=== PATIENT | male | born 1985 | race Caucasian/White ===

== ENCOUNTER 2017-02-06 14:31 | Inpatient (IN) | payer OTHER ==
[~2017-02-06] VITALS: Ht 177.8 cm; Wt 63.5 kg
[~2017-02-06 14:31] MED LIST: BENTYL20 M1 PO; ZOFRAN4 M2 PO
--- NOTE | 2017-02-06 14:41 | NUR ---
PT TO ED C/O PALPITATIONS AND DIZZINESS, EXTREMELY PALE IN TRIAGE, TAKEN IMMEDIATELY TO EKG [facility] FOR ASSESSMENT. PT REPORTING RECENT COLITIS REMISSION, STATING HE HAS BEEN DIZZY AND HAVING PALPITATIONS "FOR FOUR MONTHS, BUT I WAS SO SICK WITH COLITIS I JUST THOUGHT IT WOULD GET BETTER WHEN I GOT BETTER". TAKEN FROM [facility] TO ROOM1.
--- NOTE | 2017-02-06 14:47 | NUR ---
PT PALE, TACHYCARDIC 113. #18 PLACED IN RAC. LAURA PIERCE AT BEDSIDE FOR EVAL.
--- NOTE | 2017-02-06 14:55 | ED GENERAL ADULT ---
History of Present Illness General Chief Complaint: Palpitations Stated Complaint: PALPATATIONS Source: patient, family (sister), old records Exam Limitations: no limitations Vital Signs & Intake/Output Vital Signs & Intake/Output Vital Signs Date Time Temp Pulse Resp B/P Pulse O2 O2 Flow FiO2 Ox Delivery Rate 02/07 2159 98.3 98 20 132/82 97 Room Air 02/07 1602 98.0 97 18 120/82 96 Room Air 02/07 0800 Room Air 02/07 0620 98.9 90 16 126/82 96 Room Air ED Intake and Output 02/08 0000 02/07 1200 Intake Total 700 800 Output Total Balance 700 800 Intake, IV 700 800 Intake, Oral 0 Allergies Coded Allergies: NO KNOWN ALLERGIES (10/18/16) Reconcile Medications Acetaminophen (Tylenol Extra Strength) 500 MG TABLET 2 TAB PO PRN PAIN ( Reported) Multivitamin (Multi-Day Vitamins) 1 EACH TABLET 1 TAB PO DAILY SUPPLEMENT ( Reported) Triage Note: PT TO ED C/O PALPITATIONS AND DIZZINESS, EXTREMELY PALE IN TRIAGE, TAKEN IMMEDIATELY TO EKG [facility] FOR ASSESSMENT. PT REPORTING RECENT COLITIS REMISSION, STATING HE HAS BEEN DIZZY AND HAVING PALPITATIONS "FOR FOUR MONTHS, BUT I WAS SO SICK WITH COLITIS I JUST THOUGHT IT WOULD GET BETTER WHEN I GOT BETTER". TAKEN FROM [facility] TO ROOM1. Triage Nurses Notes Reviewed? yes HPI: Patient is a 31 year old male presents complaining of generalized weakness, dyspnea with exertion x 1-2 months, worse today. Patient with history of colitis, last episode of BRB per rectum 2 months ago. Previously heavy alcohol intake, quit drinking approximately 4 months ago. Ligthheaded with exertion. Feels improved lying down or sitting down. Today was pushing a cart at the grocery store and had fast heart rate sensation. Denies current abdominal pain, vomiting, fevers, chills. (STAN SANCHEZ,ROBSON) Past History Travel History Traveled to [place] past 21 day No Medical History Any Pertinent Medical History? see below for history Neurological: NONE EENT: NONE Cardiovascular: NONE Respiratory: NONE Gastrointestinal: colitis, GI ULCER Hepatic: NONE Renal: NONE Musculoskeletal: NONE Psychiatric: substance abuse Endocrine: NONE Blood Disorders: NONE Cancer(s): NONE Surgical History Surgical History: none Psychosocial History What is your primary language Swiss Tobacco Use: Quit <30 days ago ETOH Use: heavy use, QUIT DRINKING A COUPLE MONTHS AGO Illicit Drug Use: denies illicit drug use Family History Family History, If Any: Relation not specified for: DVT FH: early coronary artery disease FH: hypercholesterolemia FH: hypertension Hx Contributory? No (ROBSON ROJAS) Review of Systems Review of Systems Constitutional: Reports: malaise, weakness, unexplained weight loss. EENTM: Reports: no symptoms. Respiratory: Reports: short of breath. Denies: cough. Cardiovascular: Reports: palpitations. Denies: chest pain. GI: Reports: see HPI. Genitourinary: Reports: no symptoms. Musculoskeletal: Reports: no symptoms. Skin: Reports: no symptoms. Neurological/Psychological: Reports: no symptoms. Hematologic/Endocrine: Reports: no symptoms. Immunologic/Allergic: Reports: no symptoms. (ROBSON ROJAS) Physical Exam Physical Exam General Appearance: alert, awake Head: atraumatic, normal appearance Eyes: Bilateral: PERRL, EOMI, pale conjunctivae. Ears, Nose, Throat: normal pharynx, normal ENT inspection, hearing grossly normal Neck: normal inspection, supple, full range of motion Respiratory: normal breath sounds, chest non-tender, no respiratory distress, lungs clear Cardiovascular: tachycardia, regular rhythm Gastrointestinal: normal bowel sounds, soft, non-tender Rectal: normal rectal tone, BROWN STOOL HEME POSITIVE Back: normal inspection, normal range of motion Extremities: normal inspection, normal capillary refill, normal range of motion, no edema Neurologic/Psych: awake, alert, oriented x 3 Skin: normal color, warm/dry Core Measures ACS in differential dx? No CVA/TIA Diagnosis: No Severe Sepsis Present: No Septic Shock Present: No (ROBSON ROJAS) Progress Differential Diagnoses I considered the following diagnoses in my evaluation of the patient: GI bleed, colitis, electrolyte abnormality, withdrawal, symptomatic anemia Plan of Care: Orders Procedure Date/time Status CBC WITHOUT DIFFERENTIAL 02/08 0600 Active Full Liquid Diet 02/07 D Active CBC WITHOUT DIFFERENTIAL 02/07 1800 Complete PATHOLOGY SPECIMEN 02/07 1450 Complete CDIFF TOXIN A&B EIA 02/07 1406 Active CULTURE STOOL 02/07 1405 Active STOOL: R/O YERSINIA 02/07 1400 Active STOOL:R/O VIBRIO 02/07 1400 Active OVA AND PARASITE ANTIGENS 02/07 1400 Active HIV (Reflex to HIVCQ) 02/07 0852 Complete WESTERGREN SED RATE 02/07 0852 Complete CRYPTOCOCCAL ANTIGEN 02/07 0852 Complete Change service to 02/07 0752 Active NUTRITIONAL CONSULT 02/07 UNK Active Current Medications Sig/Atul Start time Last Medication Dose Stop Time Status Admin Loperamide HCl 2 MG Q3P PRN 02/07 0900 AC (Imodium) Acetaminophen 650 MG Q6P PRN 02/06 1800 AC (Tylenol) Laboratory Tests 02/07/17 1820: CBC w Diff NO MAN DIFF REQ, RBC 3.44 L, MCV 73.4 L, MCH 22.9 L, RDW 20.8 H, MPV 5.6 L, Gran % 63.4, Lymphocytes % 23.2, Monocytes % 9.8 H, Eosinophils % 3.3, Basophils % 0.3, Absolute Granulocytes 7.2 H, Absolute Lymphocytes 2.6, Absolute Monocytes 1.1 H, Absolute Eosinophils 0.4, Absolute Basophils 0, PUBS MCHC 31.1 L 02/07/17 1400: Stool Fat, Qual Cancelled 02/07/17 1400: Stool Calprotectin Pending 02/07/17 1040: HIV 1&2 Ab Western Blot NONREACTIVE 02/07/17 1040: ESR Westergren 55 H, Cryptococcus Ag POSITIVE 02/07/17 0650: Anion Gap 9, Estimated GFR > 60, BUN/Creatinine Ratio 5.7 L, CBC w Diff NO MAN DIFF REQ, RBC 3.31 L, MCV 73.0 L, MCH 22.6 L, RDW 20.3 H, MPV 5.7 L, Gran % 46.8, Lymphocytes % 34.7, Monocytes % 12.6 H, Eosinophils % 5.1 H, Basophils % 0.8, Absolute Granulocytes 4.8, Absolute Lymphocytes 3.5 H, Absolute Monocytes 1.3 H, Absolute Eosinophils 0.5, Absolute Basophils 0.1, PUBS MCHC 31.0 L Microbiology 02/07 1400 GI FROM OR: Cryptosporidium Antigen - RECD 02/07 1400 GI FROM OR: Giardia Antigen (TODD) - RECD 02/07 1400 GI FROM OR: Clostridium difficile Toxin A & B - RECD 02/07 1400 GI FROM OR: Vibrio Culture - RECD 02/07 1400 GI FROM OR: Yersinia Culture - RECD 02/07 1400 GI FROM OR: Stool Culture - RECD 03/27 0852 STOOL: Cryptosporidium Antigen - CAN Cancelled: ORDERED LTER FROM GI 02/08 852 STOOL: Giardia Antigen (TODD) - CAN Cancelled: ORDERED LTER FROM GI 02/08 852 STOOL: Clostridium difficile Toxin A & B - CAN Cancelled: OREERED LATER BY GI 02/08 852 STOOL: Vibrio Culture - CAN Cancelled: OREERED LATER BY GI 02/08 852 STOOL: Yersinia Culture - CAN Cancelled: OREERED LATER BY GI 02/08 852 STOOL: Stool Culture - CAN Cancelled: OREERED LATER BY GI 02/06/2017 3:20:55 PM: Discussed with Dr. Sykes. Results of CBC discussed with patient. Patient consented to blood transfusion, risks and benefits explained. GI paged. 02/06/2017 3:37:23 PM: Discussed with Dr. Turcios: recommends blood transfusion and obtain CT scan abd/pelvis to evaluate for the previously seen colitis. 02/06/2017 4:37:35 PM: Evaluated by Dr. Turcios: admit to medicine, [facility]ster for floor. Bowel prep tonight for colonoscopy tomorrow. (STAN SANCHEZ,ROBSON) Diagnostic Imaging: Viewed by Me: CT Scan. Discussed w/RAD: CT Scan. Radiology Impression: PATIENT: KATALINA SMALLS PRESENT AGE: 31 PATIENT ACCOUNT NO: [id number] : 87 LOCATION: [facility] ORDERING PHYSICIAN: ROBSON SANCHEZ SERVICE DATE: 02/06/17130 EXAM TYPE: CAT - CT ABD & PELVIS W ORAL & IV CO EXAMINATION: CT ABDOMEN AND PELVIS WITH CONTRAST CLINICAL INFORMATION: Symptomatic anemia. History of colitis. Evaluate for colitis. COMPARISON: CT abdomen/pelvis dated 10/18/2016. TECHNIQUE: Multidetector volumetric imaging was performed of the abdomen and pelvis after the IV administration of oral and 94 mL of Optiray 320 intravenous contrast. Sagittal and coronal reformatted images were obtained on the technologist's workstation. DLP: 285.12 mGy-cm FINDINGS: LUNG BASES: There are new subpleural densities within the posterior aspect of the right lower lobe and right lobe base as well as within the lateral aspect of the right middle lobe which are partially visualized. This could represent atelectasis or early infiltrates. Follow-up chest imaging could be considered if clinically indicated. LIVER, GALLBLADDER, AND BILIARY TREE: The liver is normal in size, shape, and attenuation. No biliary ductal dilatation is present. There is a 7 mm hypodensity within the right hepatic lobe which is best seen on series 2 image 21 and is too small to characterize. This is unchanged since the prior examination. The gallbladder is unremarkable with no evidence of radiopaque gallstones, gallbladder wall thickening, or obvious pericholecystic inflammatory changes. PANCREAS: Unremarkable. SPLEEN: Unremarkable. ADRENAL GLANDS: Unremarkable. KIDNEYS AND URETERS: The kidneys are normal in size, shape, and attenuation. No hydronephrosis, hydroureter, or calculi seen. No perinephric stranding. BLADDER: Unremarkable. GASTROINTESTINAL TRACT: There is no intra- abdominal free air or free fluid. Oral contrast reaches the colon. There is no large or small bowel obstruction. There is circumferential wall thickening within the ascending colon with minimal adjacent fat stranding, which could represent colitis. Infectious or inflammatory etiology could be considered. Ischemic etiology is thought less likely. Normal appendix. ABDOMINAL WALL: No significant hernia is appreciated. LYMPH NODES: There are prominent mesenteric lymph nodes, similar to the prior examination which are likely reactive to the colonic pathology. VASCULAR: There is no abdominal aortic dilatation. Contrast opacifies the abdominal aorta and its branch vessels. The IVC is unremarkable. PELVIC VISCERA: The prostate and seminal vesicles are unremarkable. OSSEOUS STRUCTURES: There is no lytic or blastic osseous lesion. IMPRESSION: 1. Circumferential wall thickening of the ascending colon with minimal adjacent fat stranding, likely representing colitis. Infectious or inflammatory etiology could be considered. Ischemic etiology is thought less likely. Unchanged prominent mesenteric lymph nodes, likely reactive. 2. No large or small bowel obstruction. Normal appendix. 3. New subpleural densities within the right middle and lower lobes which are partially imaged and could represent atelectasis or early infiltrates. Follow up chest imaging could be considered if clinically indicated. DICTATED BY: ROSA WALLACE MD DATE/TIME DICTATED:1806 PRACTICE DIRECTOR:SHANE DATE/TIME TRANSCRIBED:02/06/171806 CONFIDENTIAL, DO NOT COPY WITHOUT APPROPRIATE AUTHORIZATION. <Electronically signed in Other Vendor System> SIGNED BY: ROSA WALLACE MD 02/06/17 2059 Initial ED EKG: sinus tachycardia 105 bpm, no acute st/t wave changes Rhythm Strip: sinus tachycardia (ROBSON ROJAS) Departure Departure Time of Disposition: 1651 Disposition: STILL A PATIENT Condition: Stable Clinical Impression Primary Impression: Symptomatic anemia Referrals: PATIENT HAS NO PRIMARY CARE DR (PCP/Family) Departure Forms: Customer Survey General Discharge Information Admission Note Spoke With: HARRIS FRANCIS MD Documentation of Exam: Documentation of any treatments & extenuating circumstances including Concerns Regarding Discharge (functional status, medication knowledge or non-compliance, living conditions, etc.) that warrant an admission rather than observation: GI consultation, blood transfusion, colonoscopy, serial labs (ROBSON ROJAS) PA/ELECTRONICS TESTER Co-Sign Statement Statement: ED Attending supervision documentation- [X] I saw and evaluated the patient. I have also reviewed all the pertinent lab results and diagnostic results. I agree with the findings and the plan of care as documented in the PA's/ELECTRONICS TESTER's documentation. [X] I have reviewed the ED Record and agree with the PA's/ELECTRONICS TESTER's documentation. [] Additions or exceptions (if any) to the PAs/ELECTRONICS TESTER's note and plan are summarized below: [] (PRIYANK CAMPA,MILENA Gramajo) Critical Care Note Critical Care Note Critical Care Time: 30-74 min (ROBSON ROJAS) 02/07/17 1400: Stool Fat, Qual Cancelled 02/07/17 1400: Stool Calprotectin Pending 02/07/17 1040: HIV 1&2 Ab Western Blot NONREACTIVE 02/07/17 1040: ESR Westergren 55 H, Cryptococcus Ag POSITIVE 02/07/17 0650: Anion Gap 9, Estimated GFR > 60, BUN/Creatinine Ratio 5.7 L, CBC w Diff NO MAN DIFF REQ, RBC 3.31 L, MCV 73.0 L, MCH 22.6 L, RDW 20.3 H, MPV 5.7 L, Gran % 46.8, Lymphocytes % 34.7, Monocytes % 12.6 H, Eosinophils % 5.1 H, Basophils % 0.8, Absolute Granulocytes 4.8, Absolute Lymphocytes 3.5 H, Absolute Monocytes 1.3 H, Absolute Eosinophils 0.5, Absolute Basophils 0.1, PUBS MCHC 31.0 L 02/07/17 0000: Lactic Acid 1.8, CBC w Diff NO MAN DIFF REQ, RBC 3.92 L, MCV 73.6 L, MCH 22.9 L, RDW 21.2 H, MPV 6.1 L, Gran % 67.3, Lymphocytes % 21.1, Monocytes % 8.4, Eosinophils % 2.5, Basophils % 0.7, Absolute Granulocytes 11.0 H, Absolute Lymphocytes 3.4, Absolute Monocytes 1.4 H, Absolute Eosinophils 0.4, Absolute Basophils 0.1, PUBS MCHC 31.1 L 02/06/17 2100: CBC w Diff Cancelled, WBC Cancelled, RBC Cancelled, Hgb Cancelled, Hct Cancelled , MCV Cancelled, MCH Cancelled, RDW Cancelled, Plt Count Cancelled, MPV Cancelled, PUBS MCHC Cancelled 02/06/17 2014: Lactic Acid Cancelled Microbiology 02/07 1400 GI FROM OR: Cryptosporidium Antigen - RECD 02/07 1400 GI FROM OR: Giardia Antigen (TODD) - RECD 02/07 1400 GI FROM OR: Clostridium difficile Toxin A & B - RECD 02/07 1400 GI FROM OR: Vibrio Culture - RECD 02/07 1400 GI FROM OR: Yersinia Culture - RECD 02/07 1400 GI FROM OR: Stool Culture - RECD 02/07 0852 STOOL: Cryptosporidium Antigen - CAN Cancelled: ORDERED LTER FROM GI 02/07 0852 STOOL: Giardia Antigen (TODD) - CAN Cancelled: ORDERED LTER FROM GI 02/07 0852 STOOL: Clostridium difficile Toxin A & B - CAN Cancelled: OREERED LATER BY GI 02/07 0852 STOOL: Vibrio Culture - CAN Cancelled: OREERED LATER BY GI 02/07 0852 STOOL: Yersinia Culture - CAN Cancelled: OREERED LATER BY GI 02/07 0852 STOOL: Stool Culture - CAN Cancelled: OREERED LATER BY GI 02/06/2017 3:20:55 PM: Discussed with Dr. Sykes. Results of CBC discussed with patient. Patient consented to blood transfusion, risks and benefits explained. GI paged. 02/06/2017 3:37:23 PM: Discussed with Dr. Turcios: recommends blood transfusion and obtain CT scan abd/pelvis to evaluate for the previously seen colitis. 02/06/2017 4:37:35 PM: Evaluated by Dr. Turcios: admit to medicine, okay for floor. Bowel prep tonight for colonoscopy tomorrow. (ROBSON ROJAS) Departure Departure Time of Disposition: 1651 Disposition: STILL A PATIENT Condition: Stable Clinical Impression Primary Impression: Symptomatic anemia Referrals: PATIENT HAS NO PRIMARY CARE DR (PCP/Family) Departure Forms: Customer Survey General Discharge Information Admission Note Spoke With: HARRIS FRANCIS MD Documentation of Exam: Documentation of any treatments & extenuating circumstances including Concerns Regarding Discharge (functional status, medication knowledge or non-compliance, living conditions, etc.) that warrant an admission rather than observation: GI consultation, blood transfusion, colonoscopy, serial labs (ROBSON ROJAS) PA/ELECTRONICS TESTER Co-Sign Statement Statement: ED Attending supervision documentation- [X] I saw and evaluated the patient. I have also reviewed all the pertinent lab results and diagnostic results. I agree with the findings and the plan of care as documented in the PA's/ELECTRONICS TESTER's documentation. [X] I have reviewed the ED Record and agree with the PA's/ELECTRONICS TESTER's documentation. [] Additions or exceptions (if any) to the PAs/ELECTRONICS TESTER's note and plan are summarized below: [] (PRIYANK CAMPA,MILENA Gramajo) Critical Care Note Critical Care Note Critical Care Time: 30-74 min (ROBSON ROJAS)
--- NOTE | 2017-02-06 14:55 | NUR ---
BLOOD WORK SENT TO LAB NOW: SST X2, LAV, BLUE, BHAT AND PINK TOPS. IV NS LITER BOLUS INFUSING NOW.
[2017-02-06 15:07] LABS: ABSOLUTE BASOPHIL COUNT 0 /CUMM (0.0-0.2); ABSOLUTE EOSINOPHIL COUNT 0.4 /CUMM (0.0-0.7); MEAN PLATELET VOLUME 5.7 FL (7.4-10.4)
[2017-02-06 15:11] LABS: ABSOLUTE GRANULOCYTE CT 9.9 /CUMM (1.4-6.5); ABSOLUTE LYMPH COUNT 2.4 /CUMM (1.2-3.4); BASOPHIL % 0.3 % (0.0-2.0); EOSINOPHIL % 2.9 % (0-5); HEMATOCRIT 20.7 % (42-52); MEAN CORPUSCULAR HGB 20.2 PG (27.0-31.0); MEAN CORPUSCULAR HGB CONC 29.5 G/DL (33.0-37.0); MEAN CORPUSCULAR VOLUME 68.3 FL (80.0-94.0); RED BLOOD CELL CT 3.03 /CUMM (4.70-6.10); WHITE BLOOD CELL COUNT 13.7 /CUMM (4.8-10.8)
--- NOTE | 2017-02-06 15:13 | NUR ---
CRITICAL TEST RESULTS [id number] KATALINA SMALLS 31 M TESTS AND RESULTS: HEMOGLOBIN 6.1 HEMATOCRIT 20.7 Results received and read back by: ZABRINA TURCIOS Results received date and time: 02/06/17 1514 The following provider was notified of the results, and read the results back: BALDOMERO SANCHEZ Notified date and time: 02/06/17 at 1514
--- NOTE | 2017-02-06 15:15 | NUR ---
CRITICAL TEST RESULTS [id number] KATALINA SMALLS 31 M TESTS AND RESULTS: PLATELET COUNT 1,181 Results received and read back by: ZABRINA TURCIOS Results received date and time: 02/06/17 1518 The following provider was notified of the results, and read the results back: BALDOMERO SANCHEZ Notified date and time: 02/06/17 at 1519
--- NOTE | 2017-02-06 15:20 | NUR ---
PT MEDICATED WITH 40MG IV PROTONIX PER ORDER AT THIS TIME.
--- NOTE | 2017-02-06 15:20 | NUR ---
PA AT BEDSIDE TO DISCUSS RESULTS AND PLAN OF CARE
[2017-02-06 15:26] LABS: PLATELET COUNT 1181 /CUMM (130-400)
[2017-02-06 15:29] LABS: PT 12.6 SEC (9.4-12.5); PTT 27 SEC (25-37)
--- NOTE | 2017-02-06 15:29 | NUR ---
SECOND IV PLACED AT THIS TIME. PT AWARE HE WILL BE GETTING BLOOD TRANSFUSION.
--- NOTE | 2017-02-06 16:25 | NUR ---
PRBC INFUSING NOW. VSS PRIOR TO ADMINISTRATION.
--- NOTE | 2017-02-06 16:31 | NUR ---
DR. AARON AT BEDSIDE FOR EVAL
--- NOTE | 2017-02-06 16:44 | NUR ---
PT TOLERATING BLOOD TRANSFUSION WELL. DENIES ANY S/S OF TRANSFUSION REACTION. WILL CONTINUE TO MONITOR.
[2017-02-06] MEDS ORDERED: TYLENOL EXTRA500 M2 PO (16:50)
[2017-02-06] MEDS ORDERED: MULTI-DAY VITA1 EACH PO (16:50)
--- NOTE | 2017-02-06 17:06 | Cons- Gastroenterology ---
General Information and HPI Consulting Request Date of Consult: 02/06/17 Requested By: Dr. Sykes Reason for Consult: Bloody diarrhea Source of Information: patient Exam Limitations: no limitations History of Present Illness: Gael is a 31-year-old man who gives a very clear history of developing acute bloody diarrhea at approximately time. At that time he came to the hospital and was found to have a colitis. Following that admission he did not go and see any health care providers because of the lack of insurance. Through October and November and half of December he continued to have diarrhea at approximately 8-10 times a day in 3-4 times at night. Quickly bloody. Has gradually improved over the last 3-4 weeks. Initially he felt febrile with the diarrhea that the febrile feeling improved through mid-October. She states that his first episode of bloody diarrhea was when he was 23 years old and he has had repeat at approximately the age of 27. Gael gives a clear history of significant alcohol intake starting at the age of 22. Initially this was a significant amount of wine on the weekends and more moderate amounts most weekdays. I his mid 20s this at progressed to significant amounts of vodka typically one bottle a day. After each episode of bloody diarrhea he would cut down on his alcohol intake it would be improvement in his bloody diarrhea and he thought that the alcohol was the reason for the diarrhea. In addition to the above symptoms Gael has been having lower abdominal crampy pains which will be relieved by a bowel movement. He has been trying to keep a bland diet in the hope that this will improve the he has however been taking a fair amount of by mouth intake. In spite of this since he has lost approximately 40 pounds in weight. Her weight has gone from approximately 175 pounds 235 pounds. He has no other medical known medical conditions. 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 Return to work the next few weeks. This particular admission was caused by a general feeling of tiredness shortness of breath and palpitation. Gael stopped smoking a few weeks ago. There is no clear family history of inflammatory bowel disease although his sister tells us that one of the aunts is thought to have some form of colitis. No unusual travel or [id number] medications. Allergies/Medications Allergies: Coded Allergies: NO KNOWN ALLERGIES (10/18/16) Home Med List: Acetaminophen (Tylenol Extra Strength) 500 MG TABLET 2 TAB PO PRN PAIN ( Reported) Multivitamin (Multi-Day Vitamins) 1 EACH TABLET 1 TAB PO DAILY SUPPLEMENT ( Reported) Past History Travel History Traveled to [place] past 21 day No Medical History Neurological: NONE EENT: NONE Cardiovascular: NONE Respiratory: NONE Gastrointestinal: colitis, GI ULCER Hepatic: NONE Renal: NONE Musculoskeletal: NONE Psychiatric: substance abuse Endocrine: NONE Blood Disorders: NONE Cancer(s): NONE Surgical History Surgical History: 1 Family History Relations & Conditions If Any: Relation not specified for: DVT FH: early coronary artery disease FH: hypercholesterolemia FH: hypertension Psychosocial History ETOH Use: heavy use, QUIT DRINKING A COUPLE MONTHS AGO Illicit Drug Use: denies illicit drug use Review of Systems Review of Systems: Malaise fatigue palpitations. No fevers chills chest pains cough. Exam & Diagnostic Data Vital Signs and I&O Patient was seen in the ER. Slim man very pale. Alert and orientated. No visible sign of arthritis or iritis. Oropharyngeal area healthy. Heart sounds S1-S2 tachycardia. Respiratory sounds revealed good air entry. Abdomen is soft and nontender no hepatosplenomegaly. No peripheral edema. Vital Signs Date Time Temp Pulse Resp B/P Pulse O2 O2 Flow FiO2 Ox Delivery Rate 02/06 1638 99.4 103 15 122/72 98 Room Air Room Air 02/06 1624 98.7 105 20 124/72 100 Room Air Room Air 02/06 1600 102 18 118/79 02/06 1530 112 22 119/78 100 Room Air Room Air 02/06 1500 113 122/68 02/06 1457 Room Air Room Air 02/06 1443 97.7 124 20 122/70 91 Room Air Intake & Output 02/06 1600 02/06 0400 02/05 1600 02/05 0400 02/04 1600 02/04 0400 Intake Total 1000 Output Total Balance 1000 Intake, IV 1000 Intake, Oral 0 Patient 150 lb Weight Assessment/Plan Assessment/Recommendations: In summary we have a 31-year-old man who has been having intermittent bloody diarrhea since his early 20s. He said episode has been quite extensive lasting for approximately 3 months. But associated with significant weight loss but no additional symptoms such as arthralgia dry mouth dry eyes back pain. It is very likely that the patient is presenting with ulcerative colitis. 1. Transfuse 1-2 units of packed red blood cells. 2. CT abdomen with contrast 3. GoLYTELY prep tonight for a probable colonoscopy tomorrow 4. Nothing by mouth from midnight. Consult Acknowledgment - Thank you for your consult request.
--- NOTE | 2017-02-06 17:31 | NUR ---
HOUSE STAFF AT BEDSIDE FOR EVAL
--- NOTE | 2017-02-06 17:50 | NUR ---
PT TO CAT SCAN VIA STRETCHER NOW.
--- NOTE | 2017-02-06 17:55 | History & Physical ---
See Addendum OLIVIER CAMPA,[facility] 02/06/17 0344: General Information and HPI MD Statement: I have seen and personally examined KATALINA SMALLS and documented this H&P. The patient is a 31 year old M who presented with a patient stated chief complaint of [weakness, dizziness, palpitation, and recurrent bloody, diarrheal bowel movements]. Source of Information: patient Exam Limitations: no limitations History of Present Illness: 31/M with no past medical history who presented complaining of feeling weak for the past 2 months. Patient has a long history of intermittent diarrheal bloody bowel movements that started at age 23. Diabetes solids last for a few months and then disappears for couple of years. Since last (5 months ago) he started to get one watery, bloody episodes of diarrhea almost every 2-3 hours, these episodes was sometime associated with nausea and nonbloody vomits, and intermittent fever. Patient reported losing 40 pounds during the last 5 months. He did not seek medical attention because he does not had insurance. These bloody diarrheal episode stopped 2 months ago. For the last 2 months he started to complain of fatigue, exertional dyspnea, palpitation, and dizziness. Patient denies rash, joint pain, visual problem, current abdominal pain, current nausea or vomiting. Patient used to smoke half-pack daily for the past 10 years but quit 16 days ago , he denies any worsening of his GI symptom post quitting. Patient used to be a heavy or cold drinker until he quit alcohol drinking on the past because of his GI symptom. Patient never used any illicit drug, he is not on any medications, and sexually active with only female partners and does not use protection. Patient aunt has a long history of similar GI symptom, no other relative is complaining of similar symptoms. Allergies/Medications Allergies: Coded Allergies: NO KNOWN ALLERGIES (10/18/16) Past History Travel History Traveled to [place] past 21 day No Medical History Neurological: NONE EENT: NONE Cardiovascular: NONE Respiratory: NONE Gastrointestinal: colitis, GI ULCER Hepatic: NONE Renal: NONE Musculoskeletal: NONE Psychiatric: substance abuse Endocrine: NONE Blood Disorders: NONE Cancer(s): NONE Surgical History Surgical History: none Past Family/Social History Family History Relations & Conditions if any FATHER FH: early coronary artery disease FH: hypercholesterolemia FH: hypertension Relation not specified for: DVT Psychosocial History ETOH Use: heavy use, QUIT DRINKING A COUPLE MONTHS AGO Illicit Drug Use: denies illicit drug use Review of Systems Review of Systems Constitutional: Reports: malaise, weakness, unexplained weight loss (40 lb). Denies: chills, fever. EENTM: Denies: blurred vision, visual changes, ear pain, hearing changes, epistaxis, throat pain. Cardiovascular: Reports: palpitations. Denies: chest pain, orthopena, peripheral edema, syncope. Respiratory: Reports: short of breath. Denies: cough, hemoptysis, sputum production, stridor , wheezing. GI: Reports: see HPI, bloating. Denies: abdominal pain, constipation, diarrhea, nausea, bloody stool, vomiting. Genitourinary: Denies: discharge, dysuria, frequency, hematuria. Musculoskeletal: Denies: back pain, joint pain, joint swelling. Skin: Denies: erythema, rash. Exam & Diagnostic Data Last 24 Hrs of Vital Signs/I&O Vital Signs Date Time Temp Pulse Resp B/P Pulse O2 O2 Flow FiO2 Ox Delivery Rate 02/06 1714 98.6 109 15 127/76 98 Room Air Room Air 02/06 1638 99.4 103 15 122/72 98 Room Air Room Air 02/06 1624 98.7 105 20 124/72 100 Room Air Room Air 02/06 1600 102 18 118/79 02/06 1530 112 22 119/78 100 Room Air Room Air 02/06 1500 113 122/68 02/06 1457 Room Air Room Air 02/06 1443 97.7 124 20 122/70 91 Room Air Intake & Output 02/06 1600 02/06 0800 02/06 0000 Intake Total 1000 Output Total Balance 1000 Intake, IV 1000 Intake, Oral 0 Patient 68.039 kg Weight Physical Exam General Appearance Alert, Oriented X3, Cooperative, No Acute Distress Skin No Rashes HEENT Atraumatic, PERRLA, EOMI, Mucous Membr. moist/pink Neck Supple Cardiovascular Regular Rate, Normal S1, Normal S2, No Murmurs, sinus tachy Lungs Clear to Auscultation, Normal Air Movement Abdomen Soft, No Tenderness, increase BS Neurological Normal Speech Extremities No Clubbing, No Cyanosis, No Edema Last 24 Hrs of Labs/Shawn: Laboratory Tests 02/06/17 1450: Anion Gap 14, Estimated GFR > 60, BUN/Creatinine Ratio 13.8, Glucose 145 H, Calcium 8.8, Magnesium 1.9, Iron 19 L, TIBC 338, Ferritin Pending, Total Bilirubin 0.3, AST 12 L, ALT 29, Alkaline Phosphatase 129 H, Troponin I < 0.01 , C-Reactive Prot, Quant Pending, Total Protein 6.8, Albumin 3.0 L, Globulin 3.8, Albumin/Globulin Ratio 0.8 L, Vitamin B12 Pending, Folate Pending, PT 12.6 H, INR 1.20 H, APTT 27, CBC w Diff NO MAN DIFF REQ, RBC 3.03 L, MCV 68.3 L, MCH 20.2 L, RDW 18.0 H, MPV 5.7 L, Gran % 72.0, Lymphocytes % 17.3 L, Monocytes % 7.5, Eosinophils % 2.9, Basophils % 0.3, Absolute Granulocytes 9.9 H, Absolute Lymphocytes 2.4, Absolute Monocytes 1.0 H, Absolute Eosinophils 0.4 , Absolute Basophils 0, PUBS MCHC 29.5 L Assessment/Plan Assessment: 31-year-old male with a long history of recurrent episodes of bloody diarrhea. He also reported 40 pound weight loss over the last 5 months. Patient presents with symptomatic microcytic anemia. Patient was found to have low serum iron, with low ferritin. CT abdomen and pelvis;Circumferential wall thickening of the ascending colon with minimal adjacent fat stranding, likely representing colitis. Infectious or inflammatory etiology could be considered. #Microcystic anemia most likely secondary to chronic GI bleeding Patient has a long history of recurrent GI bleed, but on that next to the weight loss, he most likely has inflammatory bowel disease. * Patient will be transfused with 2 packed RBCs * CBC every 12 * Guaiac stool * We will check lactic acid. * GI was consulted, and he recommended colonoscopy in the morning * Patient will be nothing by mouth midnight, he will be prepared with GoLYTELY. Diet nothing by mouth midnight DVT prophylaxis Alps only Full code As Ranked By This Provider Problem List: 1. Symptomatic anemia Core Measures/Miscellaneous Acute Coronary Syndrome ACS Diagnosis: No Cerebrovascular Accident CVA/TIA Diagnosis: No Congestive Heart Failure CHF Diagnosis: No Venous Thromboembolism VTE Risk Factors: Acute medical illness, Smoking No Mech VTE prophylaxis d/t: No contraindications No VTE Pharm Prophylaxis d/t: Active bleeding VTE Diagnosis: No VTE Type: NONE VTE Confirmed by (Test): NONE Severe Sepsis Severe Sepsis Present: No Septic Shock Septic Shock Present: No Miscellaneous Documentation Attending Case Discussed With: HARRIS FRANCIS MD Primary Care Physician: PATIENT HAS NO PRIMARY CARE DR Patient sees these Specialists GI Level of Patient Care: General Medicine GEOVANNA VENTURA 02/06/17 1848: Resident Review Statement Resident Statement: examined this patient, discussed with internal grinder tender, agreed with internal grinder tender, amended to note Other Findings: 31-year-old gentleman with past medical history of heavy alcohol drinking, etc. smoker came to the hospital with a chief complaint of palpitations, weakness, shortness of breath on exertion which got worse for couple of days. Patient reported that he gets exhausted easily at least 10 days with episode of palpitation and mild night sweats intermittently recently. Patient has history of abdominal pain and bloody stools since he was 23 intermittently and sporadically in years. However since last patient is starting having severe bloody diarrhea at least 5-8 times a day at that time he came to [place] [facility] and found to have pancolitis and anemia however due to not having insurance he did not follow-up with any physician in outpatient setting. Patient reported that his diarrhea and abdominal pain eventually got subsided since 2 months ago. He does report of having primarily nonbloody vomit as well. Patient reports that he used to drink at least 4 beers a day for a long time which she stopped since . He also reports up being an excessive smoker quit about 2 weeks ago. He was probably a smoking half pack a day. Patient denies any IV drug use or any other illicit drug use. He had unprotected sex or contact with women befor he denies any nausea or vomiting right now but reports of bloating he denies any chest pain, headache, changes in urinary habits as of now. Patient reports of having brown semi-formed stools recently without any abdominal pain. The patient's hands a history of colitis. Patient denies any heartburn, ulcers in the mouth, rashes, joint pain. He does report of 40 pounds weight loss. IMPRESSION: 1. Circumferential wall thickening of the ascending colon with minimal adjacent fat stranding, likely representing colitis. Infectious or inflammatory etiology could be considered. Ischemic etiology is thought less likely. Unchanged prominent mesenteric lymph nodes, likely reactive. 2. No large or small bowel obstruction. Normal appendix. 3. New subpleural densities within the right middle and lower lobes which are partially imaged and could represent atelectasis or early infiltrates. Follow up chest imaging could be considered if clinically indicated. Vital signs were notable for tachycardia Physical exam was unremarkable and full detail are above JAUN done by ER staff and showed a streak of blood Hemoglobin 6.1, MCV 68.3, RDW 180, PLT 1181, WBC 13.7 Iron panel showed iron deficiency, folate and B12 are within normal limits, CRP 6.5, ALP 129 CT of abdoem and pelvis IMPRESSION: 1. Circumferential wall thickening of the ascending colon with minimal adjacent fat stranding, likely representing colitis. Infectious or inflammatory etiology could be considered. Ischemic etiology is thought less likely. Unchanged prominent mesenteric lymph nodes, likely reactive. 2. No large or small bowel obstruction. Normal appendix. 3. New subpleural densities within the right middle and lower lobes which are partially imaged and could represent atelectasis or early infiltrates. Follow up chest imaging could be considered if clinically indicated. Assessment and plan #Iron deficiency anemia, pancolitis,symptomatic anemia -Possibly due to IBD -Prepare patient with GoLYTELY for colonoscopy tomorrow -GI is already aware -IV PPI -Check lactic acid twice -IV hydration with normal saline 100 mL/h -Transfuse 2 units of RBC -Elevated Plts are due to combination of inflammation and iron deficiency anemia -CBC after transfusion and in the morning NPO after midnight, DVT prophylaxis Alps, Tylenol and morphine per pain, full code ANJANA,AARTEE 02/07/17 0148: Attending MD Review Statement Attending Statement Attending MD Statement: examined this patient, discuss w/resident/PA/CUSHION BUILDER, agreed w/resident/PA/CUSHION BUILDER, discussed with family, reviewed EMR data (avail), reviewed images, amended to note Attending Assessment/Plan: CC: BURCH And palpitation PMH: Not significant Patient came to ER for generalized weakness, dyspnea with exertion since 1-2 months, progressively getting worse since 2 weeks. Ligthheaded with exertion along with palpitations today. No cough, chest pain, fever, chills. Patient was in ER in October for abdominal pain and was found to have colitis, with recurrent bloody bowel movements. At the time patient was suggested to follow-up with the md senior research scientist but patient could not do so. (Patient works seasonally in [place], and did not have insurance) Last bloody bowel movement according to patient was in November. Of note patient has been getting intermittent bloody bowel movements since the age of 23, one episode every 1-2 years, lasting for 3 weeks, self resolving, did not seek any treatment for the same. Since last 2 months patient has been noticing some night sweats, subjective fevers, nausea vomiting but resolved since last 2 weeks. No travel, no sick contacts, no eating any different food or different water intake. Patient endorses heavy alcohol intake in the past, quit drinking in September 2016 due to bloody diarrhea. He also quit smoking since last 15 days used to smoke half PPD Vitals: Tmax 99.3, tachycardic at presentation, tachypneic, blood pressure 122/ 70, saturating well on room air. On examination: A O 3, pale, no acute distress , no focal neurological deficit, no JVD, no dependent edema, mucosa moist, neck supple, no lymphadenopathy. CVS: S1-S2, RRR. RS: Clear to auscultate bilaterally. Abdomen: Soft, and he, indeed, bowel sounds present. Labs: Hemoglobin 6.1, dropped from 12 since October, platelets 1181, MCV 68, INR 1.2 BMP unremarkable, and and 14, iron 19, TIBC 338, ferritin 6.6, alkaline phosphatase 129, troponin less than 0.01. Imaging: CT abdomen and pelvis with oral and IV contrast: Circumferential wall thickening of the ascending colon with minimal adjacent fat stranding, likely representing colitis. Infectious or inflammatory etiology could be considered. Ischemic etiology is thought less likely. Unchanged prominent mesenteric lymph nodes, likely reactive. New subpleural densities within the right middle and lower lobes which are partially imaged and could represent atelectasis or early infiltrates. Follow up chest imaging could be considered if clinically indicated. A and P #1 : Severe iron deficiency anemia secondary to chronic blood loss with chronic intermittent bloody bowel movement: CT abdomen evidence of colitis, similar presentation in October as well. Patient also has recurrent episodes since many years of bloody bowel movement, abdominal pain, diarrhea, BM urgency. This appears to be inflammatory bowel disease pattern. Admit general medicine floor, GI was consulted in ER, appreciate consult. Colonoscopy tomorrow, bowel prep, nothing by mouth after midnight, continue gentle hydration 100 mL per hour, transfuse 2 units PRBC, check lactate, no travel history, no different food intake. Repeat H&H after transfusion completed. #2 colitis: As above #3 subpleural densities : Probably incidental finding, no cough, chest pain. Conservator management. #4 disposition: According to colonoscopy findings, discharge home once medically stable. #5 DVT prophylaxis with Alps only Risk of bleeding PENNY CAMPA,[facility] 03/07/17 1153: General Information and HPI Allergies/Medications Home Med list Acetaminophen (Tylenol Extra Strength) 500 MG TABLET 2 TAB PO PRN PAIN ( Reported) Ferrous Sulfate 325 MG (65 MG IRON) TABLET. 325 MG PO BID anemia Loperamide HCl (Loperamide) 2 MG CAPSULE 2 MG PO Q3P PRN DIARRHEA Mesalamine 800 MG TABLET. 1 TAB PO TID colitis Multivitamin (Multi-Day Vitamins) 1 EACH TABLET 1 TAB PO DAILY SUPPLEMENT ( Reported) Prednisone 10 MG TABLET 30 MG PO BID ulcerative colitis Addendum Addendum I did not admit this patient.
--- NOTE | 2017-02-06 18:18 | NUR ---
REPORT GIVEN TO ARMEN JAFFE.
--- NOTE | 2017-02-06 18:24 | CT SCAN REPORT ---
EXAMINATION: CT ABDOMEN AND PELVIS WITH CONTRAST CLINICAL INFORMATION: Symptomatic anemia. History of colitis. Evaluate for colitis. COMPARISON: CT abdomen/pelvis dated 10/18/2016. TECHNIQUE: Multidetector volumetric imaging was performed of the abdomen and pelvis after the IV administration of oral and 94 mL of Optiray 320 intravenous contrast. Sagittal and coronal reformatted images were obtained on the technologist's workstation. DLP: 285.12 mGy-cm FINDINGS: LUNG BASES: There are new subpleural densities within the posterior aspect of the right lower lobe and right lobe base as well as within the lateral aspect of the right middle lobe which are partially visualized. This could represent atelectasis or early infiltrates. Follow-up chest imaging could be considered if clinically indicated. LIVER, GALLBLADDER, AND BILIARY TREE: The liver is normal in size, shape, and attenuation. No biliary ductal dilatation is present. There is a 7 mm hypodensity within the right hepatic lobe which is best seen on series 2 image 21 and is too small to characterize. This is unchanged since the prior examination. The gallbladder is unremarkable with no evidence of radiopaque gallstones, gallbladder wall thickening, or obvious pericholecystic inflammatory changes. PANCREAS: Unremarkable. SPLEEN: Unremarkable. ADRENAL GLANDS: Unremarkable. KIDNEYS AND URETERS: The kidneys are normal in size, shape, and attenuation. No hydronephrosis, hydroureter, or calculi seen. No perinephric stranding. BLADDER: Unremarkable. GASTROINTESTINAL TRACT: There is no intra-abdominal free air or free fluid. Oral contrast reaches the colon. There is no large or small bowel obstruction. There is circumferential wall thickening within the ascending colon with minimal adjacent fat stranding, which could represent colitis. Infectious or inflammatory etiology could be considered. Ischemic etiology is thought less likely. Normal appendix. ABDOMINAL WALL: No significant hernia is appreciated. LYMPH NODES: There are prominent mesenteric lymph nodes, similar to the prior examination which are likely reactive to the colonic pathology. VASCULAR: There is no abdominal aortic dilatation. Contrast opacifies the abdominal aorta and its branch vessels. The IVC is unremarkable. PELVIC VISCERA: The prostate and seminal vesicles are unremarkable. OSSEOUS STRUCTURES: There is no lytic or blastic osseous lesion. IMPRESSION: 1. Circumferential wall thickening of the ascending colon with minimal adjacent fat stranding, likely representing colitis. Infectious or inflammatory etiology could be considered. Ischemic etiology is thought less likely. Unchanged prominent mesenteric lymph nodes, likely reactive. 2. No large or small bowel obstruction. Normal appendix. 3. New subpleural densities within the right middle and lower lobes which are partially imaged and could represent atelectasis or early infiltrates. Follow up chest imaging could be considered if clinically indicated.
--- NOTE | 2017-02-06 18:47 | NUR ---
FIRST UNIT OF BLOOD COMPLETED. PT TOLERATED WELL. PT'S VSS POST TREATMENT. ARMEN JAFFE ON [address] [place] [id number] AWARE THAT FIRST UNIT IS COMPLETE AND SECOND UNIT OF BLOOD TO BE GIVEN UPSTAIRS.
[2017-02-06 19:05] VITALS: BP 122/82
--- NOTE | 2017-02-06 19:05 | NUR ---
ADMISSION NOTE; PT ARRIVED TO FLOOR VIA STRETCHER WITH DISTRIBUTION, A/OX3, ROOM AIR, IMMEDIATELY NEEDING TO USE BATHROOM FOR BM, 2 IVs IN TACT,, FLUIDS RUNNING, PULSE BETWEEEN 92-122, OTHERWISE VSS, ADMISSION INTERVIEW COMPLETE, 2ND UNIT OF BLOOD STARTED WITH NIGHT NURSE.
[2017-02-06 20:15] VITALS: BP 122/82
[2017-02-06 20:30] VITALS: BP 122/78
[2017-02-06 22:46] VITALS: BP 124/80
[2017-02-07 00:36] LABS: ABSOLUTE BASOPHIL COUNT 0.1 /CUMM (0.0-0.2); ABSOLUTE EOSINOPHIL COUNT 0.4 /CUMM (0.0-0.7); ABSOLUTE LYMPH COUNT 3.4 /CUMM (1.2-3.4); ABSOLUTE MONOCYTE COUNT 1.4 /CUMM (0.10-0.60); BASOPHIL % 0.7 % (0.0-2.0); EOSINOPHIL % 2.5 % (0-5); GRANULOCYTE % 67.3 % (42.2-75.2); MEAN CORPUSCULAR HGB CONC 31.1 G/DL (33.0-37.0); MEAN PLATELET VOLUME 6.1 FL (7.4-10.4); PLATELET COUNT 788 /CUMM (130-400); RBC DISTRIBUTION WIDTH 21.2 % (11.5-14.5); WHITE BLOOD CELL COUNT 16.3 /CUMM (4.8-10.8)
[2017-02-07 00:44] LABS: HEMATOCRIT 28.8 % (42-52); MEAN CORPUSCULAR HGB 22.9 PG (27.0-31.0); MEAN CORPUSCULAR VOLUME 73.6 FL (80.0-94.0); RED BLOOD CELL CT 3.92 /CUMM (4.70-6.10)
--- NOTE | 2017-02-07 01:50 | Admission Certification ---
Admission Certification Certification Statement - As attending physician, I certify that at the time of - admission, based on clinical presentation, severity of - symptoms, need for further diagnostic testing and - therapeutic interventions, and risk of adverse outcomes - without in-hospital treatment, in my clinical assessment, - this patient requires an acute hospital stay for a minimum - of two nights or longer. I have also considered psychsocial - factors such as support system, advanced age, financial - issues, cognitive issues, and failed out-patient treatments, - past re-admission history, safety of patient, and lack of - compliance as applicable. Specific rationale supporting this admission is: Symptomatic anemia secondary to GI blood loss. Colitis
[2017-02-07 06:20] VITALS: BP 126/82
--- NOTE | 2017-02-07 08:17 | PN- Gastroenterology ---
Assessment/Plan Assessment/Recommendations: (*Please refer to covering GI consultation of 02/06/2017, per Dr. Turcios. The patient was seen by myself initially on 02/07/17, in the presence of his girlfriend, Laura, as per patient request). 31-year-old male, with intermittent bloody diarrhea since 2015. The patient lost 40 pounds over the past 4 months. He denied any rashes or arthralgias, except for some mild low back pain. There is a questionable family history of "colitis" in the patient's aunt. The patient rarely takes Ibuprofen. He denied any recent antibiotics, travel, or food ingestion, except for rare sushi. Upon further questioning, he may have had bloody diarrhea in his early 20s. Denied any abdominal pain. The diarrhea was every 1-2 hours and secretory in nature, with nocturnal stools. He denied any upper GI symptoms, hematemesis, or melena. The patient was seen for the above in the [place] [facility] *10/18/2016, at which point, CT abdomen and pelvis with IV contrast revealed diffuse mild bowel wall thickening of the colon , from the rectum through the hepatic flexure, with sparing of the right colon and cecum. There was minimal pericolonic stranding most notable at the mid descending colon. Reticula. The appendix was normal, as was the small bowel. Unfortunately, the patient did not follow up with any humanities coordinator since then, despite being instructesd to do so by the ER, due to "lack of insurance". There is no family history of colon cancer. The patient was admitted to [facility] 02/06/2017 with the above painless bloody diarrhea, microcytic anemia, and weight loss. He was seen in covering GI consultation by Dr. Turcios that day, and a CAT AP scan was ordered. He had thrombocytosis, which most likely is reactive in nature from probable iron deficiency. He received a gallon of GoLYTELY, in anticipation of colonoscopy later today. *The patient previously drank alcohol heavily, stopping 2015. He stopped cigarette smoking a little over 2 weeks prior to admission. He denied any illicit drug use, although remote urine toxicologies were positive for cannabis. *For some reason, no stool workup has been ordered for infectious pathogens, C. difficile, etc, nor any ESR. *The patient received 2u PRBC overnight on 02/06/17. *Upon presentation to the [place] ER 02/06/2017, he was normotensive, tachycardic, afebrile (Tm 99.4), with normal O2 sat. 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 02/06/17: Admission labs- WBC 13.7 (72% gran/10 gran Ab), *H/H 6.1/20.7, MCV 68.3, RDW 18, *PLT 1181, PT 12.6, INR 1.20, PTT 27, admission CMP significant for glucose 145, BUN/Cr 11/0.8, GFR > 60, normal electrolytes with sodium 140, potassium 4.8, bicarbonate 22, AG 14, magnesium 1.9, calcium 8.8, albumin 3.0, globulin 3.8, TBil 0.3, alk phos 129, AST 12, ALT 19, troponin < .01, Iron 19, TIBC 338, *iron saturation 5.6%, *ferritin 6.6, B12 586, folate 9.4, * elevated CRP 6.5. 02/07/17: WBC 16.3, H/H 9.0/28.8 (*post 2u PRBC), PLT 788 02/06/17: EKG- ST @ 105, normal axis, normal interval. 02/06/17: CT ABD & PELVIS W ORAL & IV CONTRAST- 1. Circumferential wall thickening of the ascending colon with minimal adjacent fat stranding, likely representing colitis. Infectious or inflammatory etiology could be considered. Ischemic etiology is thought less likely. Unchanged prominent mesenteric lymph nodes, likely reactive. 2. No large or small bowel obstruction. No megacolon. Normal appendix. 3. New subpleural densities within the right middle and lower lobes which are partially imaged and could represent atelectasis or early infiltrates. Follow up chest imaging could be considered if clinically indicated. *With at least a few months of bloody diarrhea, 40 lb weight loss, low albumin, elevated CRP, colitis on CT, etc., Most likely, the patient has IBD, probably of the UC variant > Crohn's, by the distribution. Infectious etiology, C. difficile, less likely. He was using small amounts of Ibuprofen, doubt NSAID colitis. Sincerely doubt ischemia. 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 He has never had a colonoscopy. There apparently is a family history of colitis in 1 of his aunts. His thrombocytosis is most likely from iron deficiency. *SUGGEST: NPO for colonoscopy later today 02/07/2017. The risks and benefits of colonoscopy were discussed with the patient, and he wishes to proceed. Informed consent was obtained from him. *Please check ESR, HIV, stool culture, C. difficile, Shiga toxin, Giardia Ag, Crypto Ag, Vibrio, Yersinia, and fecal calprotectin. Imodium as needed for now. Definitive therapy will be started after obtaining pathology results. Transfuse as needed, keeping Hgb > 8. Eventual iron repletion & nutrtional supplements. No NSAIDS. Consideration for checking Hep Bs Ag, Hep C Ab, Hep Bs Ab, Hep B core Ab, Hep A Ab, QuantiFERON TB testing & TPMT genotype/phenotype, in case biologic agents and/or 6 MP are eventually needed. Compliance with outpatient GI follow-up was stressed to the patient. The above findings and recommendations were discussed with the patient's RN, who will convey the above to the medical house staff. Further recommendations to follow, depending on clinical course. Problem List: 1. Bloody diarrhea 2. Colitis 3. Symptomatic anemia 4. Weight loss 5. Malnutrition 6. Abnormal CT of the abdomen 7. Family history of colitis Subjective Subjective: *Covering GI consult of 02/06/[address] Turcios reviewed. *As of 02/07/2017, the patient took 1 gallon of GoLYTELY. He was transfused 2 units PRBC overnight. He had diarrhea as expected from the prep. He denied any worsening of his rectal bleeding. He has chronic low back pain, but denies any additional arthralgias or rashes. He denied any chest pain. He denied any shortness of breath. His dyspnea on exertion is better after transfusion. He denied any abdominal pain. He is hemodynamically stable and afebrile. Review of Systems: Full 14 point review of systems otherwise noncontributory, and as above. Constitutional: Reports: malaise, weakness, unexplained weight loss (40 lb). Denies: chills, fever. EENTM: Denies: blurred vision, visual changes, ear pain, hearing changes, epistaxis, throat pain. Cardiovascular: Reports: dyspnea on exertion- better after transfusions. Denies: chest pain, orthopena, peripheral edema, syncope. Respiratory: Reports: short of breath- better after transfusion. Denies: cough, hemoptysis, sputum production, stridor, wheezing. GI: Reports: see HPI. Denies: abdominal pain, constipation, diarrhea, nausea, bloody stool, vomiting. Genitourinary: Denies: discharge, dysuria, frequency, hematuria. Musculoskeletal: Reports; low back pain (chronic). Denies: joint pain, joint swelling. Skin: Denies: erythema, rash. Objective Vital Signs and I&Os Vital Signs Date Time Temp Pulse Resp B/P Pulse O2 O2 Flow FiO2 Ox Delivery Rate 02/07 0620 98.9 90 16 126/82 96 Room Air 02/07 0000 100 Room Air 02/06 2246 98.9 103 18 124/80 100 Room Air 02/06 2030 98.0 102 18 122/78 100 Room Air 02/06 2015 98.0 105 18 122/82 100 Room Air 02/06 1905 100 Room Air 02/06 1905 98.0 105 18 122/82 100 Room Air 02/06 1839 99.3 103 15 123/71 97 Room Air Room Air 02/06 1714 98.6 109 15 127/76 98 Room Air Room Air 02/06 1638 99.4 103 15 122/72 98 Room Air Room Air 02/06 1624 98.7 105 20 124/72 100 Room Air Room Air 02/06 1600 102 18 118/79 02/06 1530 112 22 119/78 100 Room Air Room Air 02/06 1500 113 122/68 02/06 1457 Room Air Room Air 02/06 1443 97.7 124 20 122/70 91 Room Air Intake & Output 02/07 1600 02/07 0400 02/06 1600 02/06 0400 02/05 1600 02/05 0400 Intake Total 800 1190 1000 Output Total Balance 800 1190 1000 Intake, Blood 350 Product Intake, IV 634 394 2420 Intake, Oral 0 540 0 Number 3 Bowel Movements Patient 140 lb 150 lb Weight Physical Exam: Well-developed, slightly malnourished, thin male, in no apparent distress. Sclera anicteric. Conjunctiva less pale (after transfusion). Oropharynx clear. No oral thrush. No aphthous ulcers. There is no adenopathy, thyromegaly, or JVD. No peripheral stigmata of inflammatory bowel disease or chronic liver disease on exam. No spiders on the anterior chest wall. No gynecomastia. No CVA tenderness. Lungs: clear to A&P. Heart exam: regular rate rhythm S1 and S2 , without any murmur. Abdominal exam: normal bowel sounds, soft belly, nontender, without guarding or rebound. No mass. Clinically, without megacolon. No organomegaly. No fluid shift. No pulsatile mass. Digital rectal exam on admission reportedly revealed a few flecks of blood (not repeaed at present). Extremities: without C, C, or E. No palpable cords. No palmar erythema. No Dupuytren's contractures. Distal pulses 2+ bilaterally. DTRs 2+ bilaterally. Alert and oriented x 3. No tremor. No asterixis. No rash. No acute arthropathy. Current Medications: Current Medications Sig/Atul Start time Last Medication Dose Route Stop Time Status Admin Acetaminophen 650 MG Q6P PRN 02/06 1800 AC PO Loperamide HCl 2 MG Q3P PRN 02/07 0900 AC PO Morphine Sulfate 2 MG Q8P PRN 02/06 1800 AC IV Pantoprazole Sodium 40 MG DAILY 02/07 1000 AC 02/07 IV 0948 Pantoprazole Sodium 0 .STK-MED ONE 02/06 1519 DC IV Pantoprazole Sodium 40 MG ONCE ONE 02/06 1515 DC 02/06 IV 02/06 1516 1520 Patient Medication 1 UNIT ONE NR 02/06 1815 DC Teaching ED 02/06 1830 Polyethylene Glycol 1 GAL ONE TIME ONE 02/06 2100 DC 02/06 PO 02/06 2101 2025 Sodium Chloride 1,000 ML Q10H 02/06 1715 AC 02/07 IV 1320 Sodium Chloride 1,000 ML BOLUS ONE 02/06 1500 DC 02/06 IV 02/06 1559 1456 Results Pertinent Lab Results: Laboratory Tests 02/07 02/07 02/07 1040 1040 0650 Chemistry Sodium (137 - 145 mmol/L) 140 Potassium (3.5 - 5.1 mmol/L) 3.9 Chloride (98 - 107 mmol/L) 106 Carbon Dioxide (22 - 30 mmol/L) 24 Anion Gap (5 - 16) 9 BUN (9 - 20 mg/dL) 4 L Creatinine (0.7 - 1.2 mg/dL) 0.7 Estimated GFR (>60 ml/min) > 60 BUN/Creatinine Ratio (7 - 25 %) 5.7 L Hematology CBC w Diff NO MAN DIFF REQ WBC (4.8 - 10.8 /CUMM) 10.2 RBC (4.70 - 6.10 /CUMM) 3.31 L Hgb (14.0 - 18.0 G/DL) 7.5 L Hct (42 - 52 %) 24.2 L MCV (80.0 - 94.0 FL) 73.0 L MCH (27.0 - 31.0 PG) 22.6 L RDW (11.5 - 14.5 %) 20.3 H Plt Count (130 - 400 /CUMM) 772 H MPV (7.4 - 10.4 FL) 5.7 L Gran % (42.2 - 75.2 %) 46.8 Lymphocytes % (20.5 - 51.1 %) 34.7 Monocytes % (1.7 - 9.3 %) 12.6 H Eosinophils % (0 - 5 %) 5.1 H Basophils % (0.0 - 2.0 %) 0.8 Absolute Granulocytes (1.4 - 6.5 /CUMM) 4.8 Absolute Lymphocytes (1.2 - 3.4 /CUMM) 3.5 H Absolute Monocytes (0.10 - 0.60 /CUMM) 1.3 H Absolute Eosinophils (0.0 - 0.7 /CUMM) 0.5 Absolute Basophils (0.0 - 0.2 /CUMM) 0.1 PUBS MCHC (33.0 - 37.0 G/DL) 31.0 L ESR Westergren (0 - 10 MM) 55 H Serology Cryptococcus Ag Pending HIV 1&2 Ab Western Blot (NONREACTIVE) NONREACTIVE 02/07 02/06 02/06 0000 2100 2013 Chemistry Lactic Acid (0.7 - 2.1 mmol/L) 1.8 Cancelled Hematology CBC w Diff NO MAN DIFF REQ Cancelled WBC (4.8 - 10.8 /CUMM) 16.3 H Cancelled RBC (4.70 - 6.10 /CUMM) 3.92 L Cancelled Hgb (14.0 - 18.0 G/DL) 9.0 L Cancelled Hct (42 - 52 %) 28.8 L Cancelled MCV (80.0 - 94.0 FL) 73.6 L Cancelled MCH (27.0 - 31.0 PG) 22.9 L Cancelled RDW (11.5 - 14.5 %) 21.2 H Cancelled Plt Count (130 - 400 /CUMM) 788 H Cancelled MPV (7.4 - 10.4 FL) 6.1 L Cancelled Gran % (42.2 - 75.2 %) 67.3 Lymphocytes % (20.5 - 51.1 %) 21.1 Monocytes % (1.7 - 9.3 %) 8.4 Eosinophils % (0 - 5 %) 2.5 Basophils % (0.0 - 2.0 %) 0.7 Absolute Granulocytes (1.4 - 6.5 /CUMM) 11.0 H Absolute Lymphocytes (1.2 - 3.4 /CUMM) 3.4 Absolute Monocytes (0.10 - 0.60 /CUMM) 1.4 H Absolute Eosinophils (0.0 - 0.7 /CUMM) 0.4 Absolute Basophils (0.0 - 0.2 /CUMM) 0.1 PUBS MCHC (33.0 - 37.0 G/DL) 31.1 L Cancelled 02/06 1450 Chemistry Sodium (137 - 145 mmol/L) 140 Potassium (3.5 - 5.1 mmol/L) 4.8 Chloride (98 - 107 mmol/L) 104 Carbon Dioxide (22 - 30 mmol/L) 22 Anion Gap (5 - 16) 14 BUN (9 - 20 mg/dL) 11 Creatinine (0.7 - 1.2 mg/dL) 0.8 Estimated GFR (>60 ml/min) > 60 BUN/Creatinine Ratio (7 - 25 %) 13.8 Glucose (65 - 99 mg/dL) 145 H Calcium (8.4 - 10.2 mg/dL) 8.8 Magnesium (1.6 - 2.3 mg/dL) 1.9 Iron (49 - 181 ug/dL) 19 L TIBC (261 - 462 ug/dL) 338 Ferritin (17.9 - 464 ng/mL) 6.6 L Total Bilirubin (0.2 - 1.3 mg/dL) 0.3 AST (17 - 59 U/L) 12 L ALT (21 - 72 U/L) 29 Alkaline Phosphatase (< 127 U/L) 129 H Troponin I (<0.11 ng/ml) < 0.01 C-Reactive Prot, Quant (<1.0 mg/dL) 6.5 H Total Protein (6.3 - 8.2 g/dL) 6.8 Albumin (3.5 - 5.0 g/dL) 3.0 L Globulin (1.9 - 4.2 gm/dL) 3.8 Albumin/Globulin Ratio (1.1 - 2.2 %) 0.8 L Vitamin B12 (239 - 931 pg/mL) 586 Folate (2.76 - 20.0 ng/mL) 9.4 Coagulation PT (9.4 - 12.5 SEC) 12.6 H INR (0.90 - 1.17) 1.20 H APTT (25 - 37 SEC) 27 Hematology CBC w Diff NO MAN DIFF REQ WBC (4.8 - 10.8 /CUMM) 13.7 H RBC (4.70 - 6.10 /CUMM) 3.03 L Hgb (14.0 - 18.0 G/DL) 6.1 *L Hct (42 - 52 %) 20.7 L MCV (80.0 - 94.0 FL) 68.3 L MCH (27.0 - 31.0 PG) 20.2 L RDW (11.5 - 14.5 %) 18.0 H Plt Count (130 - 400 /CUMM) 1181 *H MPV (7.4 - 10.4 FL) 5.7 L Gran % (42.2 - 75.2 %) 72.0 Lymphocytes % (20.5 - 51.1 %) 17.3 L Monocytes % (1.7 - 9.3 %) 7.5 Eosinophils % (0 - 5 %) 2.9 Basophils % (0.0 - 2.0 %) 0.3 Absolute Granulocytes (1.4 - 6.5 /CUMM) 9.9 H Absolute Lymphocytes (1.2 - 3.4 /CUMM) 2.4 Absolute Monocytes (0.10 - 0.60 /CUMM) 1.0 H Absolute Eosinophils (0.0 - 0.7 /CUMM) 0.4 Absolute Basophils (0.0 - 0.2 /CUMM) 0 PUBS MCHC (33.0 - 37.0 G/DL) 29.5 L Imaging/Other Studies: 02/06/17: EKG- ST @ 105, normal axis, normal interval. 02/06/17: CT ABD & PELVIS W ORAL & IV CONTRAST- 1. Circumferential wall thickening of the ascending colon with minimal adjacent fat stranding, likely representing colitis. Infectious or inflammatory etiology could be considered. Ischemic etiology is thought less likely. Unchanged prominent mesenteric lymph nodes, likely reactive. 2. No large or small bowel obstruction. No megacolon. Normal appendix. 3. New subpleural densities within the right middle and lower lobes which are partially imaged and could represent atelectasis or early infiltrates. Follow up chest imaging could be considered if clinically indicated.
--- NOTE | 2017-02-07 08:21 | PN- Housestaff ---
[facility] 02[facility]17 0821: Subjective Follow-up For: Weakness, lethargic, recurrent bloody diarrhea Subjective: Afebrile, alert and oriented, no acute overnight events reported, looks relaxed and comfortable. Patient received GoLYTELY last night and was kept nothing by mouth for colonoscopy later today. He denies any current complaints. He reported improvement on his shortness breath and palpitation post blood transfusion yesterday. He denies fever, chills, abdominal pain, bloody bowel movement, nausea or vomiting. Review of Systems Constitutional: Reports: no symptoms. Objective Last 24 Hrs of Vital Signs/I&O Vital Signs Date Time Temp Pulse Resp B/P Pulse O2 O2 Flow FiO2 Ox Delivery Rate 02/07 0800 Room Air 02/07 0620 98.9 90 16 126/82 96 Room Air 02/07 0000 100 Room Air 02/06 2246 98.9 103 18 124/80 100 Room Air 02/06 2030 98.0 102 18 122/78 100 Room Air 02/06 2015 98.0 105 18 122/82 100 Room Air 02/06 1905 100 Room Air 02/06 1905 98.0 105 18 122/82 100 Room Air 02/06 1839 99.3 103 15 123/71 97 Room Air Room Air 02/06 1714 98.6 109 15 127/76 98 Room Air Room Air 02/06 1638 99.4 103 15 122/72 98 Room Air Room Air 02/06 1624 98.7 105 20 124/72 100 Room Air Room Air 02/06 1600 102 18 118/79 02/06 1530 112 22 119/78 100 Room Air Room Air 02/06 1500 113 122/68 02/06 1457 Room Air Room Air 02/06 1443 97.7 124 20 122/70 91 Room Air Intake & Output 02/07 1600 02/07 0800 02/07 0000 Intake Total 800 1190 Output Total Balance 800 1190 Intake, Blood 350 Product Intake, IV 800 300 Intake, Oral 0 540 Number 3 Bowel Movements Patient 63.503 kg Weight Physical Exam General Appearance: Alert, Oriented X3, Cooperative, No Acute Distress Skin: No Rashes HEENT: Atraumatic, PERRLA, EOMI, Mucous Membr. moist/pink Cardiovascular: Regular Rate, Normal S1, Normal S2, No Murmurs Lungs: Clear to Auscultation Abdomen: Soft, No Tenderness Neurological: Normal Speech Extremities: No Clubbing, No Cyanosis, No Edema Current Medications: Current Medications Sig/Atul Start time Last Medication Dose Route Stop Time Status Admin Acetaminophen 650 MG Q6P PRN 02/06 1800 AC PO Loperamide HCl 2 MG Q3P PRN 02/07 0900 AC PO Morphine Sulfate 2 MG Q8P PRN 02/06 1800 AC IV Pantoprazole Sodium 40 MG DAILY 02/07 1000 AC 02/07 IV 0948 Pantoprazole Sodium 0 .STK-MED ONE 02/06 1519 DC IV Pantoprazole Sodium 40 MG ONCE ONE 02/06 1515 DC 02/06 IV 02/06 1516 1520 Patient Medication 1 ED ONE ONE 02/07 1400 DC Teaching ED 02/07 1401 Patient Medication 1 UNIT ONE NR 02/06 1815 CO Teaching ED 02/06 1830 Polyethylene Glycol 1 GAL ONE TIME ONE 02/06 2100 DC 02/06 PO 02/06 2101 2025 Sodium Chloride 1,000 ML Q10H 02/06 1715 AC 02/07 IV 1320 Sodium Chloride 1,000 ML BOLUS ONE 02/06 1500 DC 02/06 IV 02/06 1559 1456 Last 24 Hrs of Lab/Shawn Results Last 24 Hrs of Labs/Mics: Laboratory Tests 02/07/17 1400: Stool Fat, Qual Pending 02/07/17 1040: HIV 1&2 Ab Western Blot NONREACTIVE 02/07/17 1040: ESR Westergren 55 H, Cryptococcus Ag POSITIVE 02/07/17 0650: Anion Gap 9, Estimated GFR > 60, BUN/Creatinine Ratio 5.7 L, CBC w Diff NO MAN DIFF REQ, RBC 3.31 L, MCV 73.0 L, MCH 22.6 L, RDW 20.3 H, MPV 5.7 L, Gran % 46.8, Lymphocytes % 34.7, Monocytes % 12.6 H, Eosinophils % 5.1 H, Basophils % 0.8, Absolute Granulocytes 4.8, Absolute Lymphocytes 3.5 H, Absolute Monocytes 1.3 H, Absolute Eosinophils 0.5, Absolute Basophils 0.1, PUBS MCHC 31.0 L 02/07/17 0000: Lactic Acid 1.8, CBC w Diff NO MAN DIFF REQ, RBC 3.92 L, MCV 73.6 L, MCH 22.9 L, RDW 21.2 H, MPV 6.1 L, Gran % 67.3, Lymphocytes % 21.1, Monocytes % 8.4, Eosinophils % 2.5, Basophils % 0.7, Absolute Granulocytes 11.0 H, Absolute Lymphocytes 3.4, Absolute Monocytes 1.4 H, Absolute Eosinophils 0.4, Absolute Basophils 0.1, PUBS MCHC 31.1 L 02/06/17 2100: CBC w Diff Cancelled, WBC Cancelled, RBC Cancelled, Hgb Cancelled, Hct Cancelled , MCV Cancelled, MCH Cancelled, RDW Cancelled, Plt Count Cancelled, MPV Cancelled, PUBS MCHC Cancelled 02/06/17 2014: Lactic Acid Cancelled 02/06/17 1450: Anion Gap 14, Estimated GFR > 60, BUN/Creatinine Ratio 13.8, Glucose 145 H, Calcium 8.8, Magnesium 1.9, Iron 19 L, TIBC 338, Ferritin 6.6 L, Total Bilirubin 0.3, AST 12 L, ALT 29, Alkaline Phosphatase 129 H, Troponin I < 0.01 , C-Reactive Prot, Quant 6.5 H, Total Protein 6.8, Albumin 3.0 L, Globulin 3.8 , Albumin/Globulin Ratio 0.8 L, Vitamin B12 586, Folate 9.4, PT 12.6 H, INR 1.20 H, APTT 27, CBC w Diff NO MAN DIFF REQ, RBC 3.03 L, MCV 68.3 L, MCH 20.2 L, RDW 18.0 H, MPV 5.7 L, Gran % 72.0, Lymphocytes % 17.3 L, Monocytes % 7.5 , Eosinophils % 2.9, Basophils % 0.3, Absolute Granulocytes 9.9 H, Absolute Lymphocytes 2.4, Absolute Monocytes 1.0 H, Absolute Eosinophils 0.4, Absolute Basophils 0, PUBS MCHC 29.5 L Microbiology 02/07 1406 GI FROM OR: Clostridium difficile Toxin A & B - ORD 02/07 1405 GI FROM OR: Stool Culture - ORD 02/08 852 STOOL: Cryptosporidium Antigen - CAN Cancelled: ORDERED LTER FROM GI 02/08 852 STOOL: Giardia Antigen (SHAWN) - CAN Cancelled: ORDERED LTER FROM GI 02/08 852 STOOL: Clostridium difficile Toxin A & B - CAN Cancelled: OREERED LATER BY GI 02/08 852 STOOL: Vibrio Culture - CAN Cancelled: OREERED LATER BY GI 02/08 852 STOOL: Yersinia Culture - CAN Cancelled: OREERED LATER BY GI 02/08 852 STOOL: Stool Culture - CAN Cancelled: OREERED LATER BY GI Assessment/Plan Assessment: 31-year-old male with a long history of recurrent episodes of bloody diarrhea. He also reported 40 pound weight loss over the last 5 months. Patient presents with symptomatic microcytic anemia. Patient was found to have low serum iron, with low ferritin. CT abdomen and pelvis;Circumferential wall thickening of the ascending colon with minimal adjacent fat stranding, likely representing colitis. Infectious or inflammatory etiology could be considered. #Microcystic anemia most likely secondary to chronic GI bleeding Patient has a long history of recurrent GI bleed, unintentional weight loss, he most likely has inflammatory bowel disease however asymptomatic bowel disease need to be ruled out. His blood improved from hemoglobin 62 hemoglobin 9 after 2 packed RBCs. However soon after it dropped back to 7. Patient will be taken for colonoscopy today. Infectious colitis will be ruled out. * We will send for stool culture and antigen for multiple possible explanation of colitis, as Please check ESR, HIV, stool culture, C. difficile, Shiga toxin, Giardia Ag, Crypto Ag, Vibrio, Yersinia, and fecal calprotectin. * CBC every 12 * We will start Imodium when necessary Diet nothing by mouth midnight DVT prophylaxis Alps only Full code Problem List: 1. Weight loss 2. Colitis 3. Bloody diarrhea 4. Abdominal pain Pain Ratin Pain Location: na Pain Goal: Remain pain free Pain Plan: see A&P Tomorrow's Labs & Rationales: cbc and bep ELLI CAMPA,MANUEL 02/07/17 1359: Attending MD Review Statement Attending Statement Attending MD Statement: examined this patient, discuss w/resident/PA/COLLAR TURNER OPERATOR, agreed w/resident/PA/COLLAR TURNER OPERATOR, discussed with family, reviewed EMR data (avail), discussed with nursing, discussed with case mgmt, reviewed images, amended to note Attending Assessment/Plan: Patient seen and examined, complain of mild abdominal discomfort after he drank the GoLYTELY. He is awaiting colonoscopy. Patient is a 31-year-old male who was admitted with feeling fatigued, weight loss as well as shortness of breath. Patient was found to have acute blood loss anemia secondary to GI blood loss. CAT scan is consistent with colitis. Vital Signs Date Time Temp Pulse Resp B/P Pulse O2 O2 Flow FiO2 Ox Delivery Rate 02/07 0800 Room Air 02/07 0620 98.9 90 16 126/82 96 Room Air 02/07 0000 100 Room Air 02/06 2246 98.9 103 18 124/80 100 Room Air 02/06 2030 98.0 102 18 122/78 100 Room Air 02/06 2015 98.0 105 18 122/82 100 Room Air 02/06 1905 100 Room Air 02/06 1905 98.0 105 18 122/82 100 Room Air 02/06 1839 99.3 103 15 123/71 97 Room Air Room Air 02/06 1714 98.6 109 15 127/76 98 Room Air Room Air 02/06 1638 99.4 103 15 122/72 98 Room Air Room Air 02/06 1624 98.7 105 20 124/72 100 Room Air Room Air 02/06 1600 102 18 118/79 02/06 1530 112 22 119/78 100 Room Air Room Air 02/06 1500 113 122/68 02/06 1457 Room Air Room Air 02/06 1443 97.7 124 20 122/70 91 Room Air on exam; aox3, nad. cv; s1,s2, rrr resp; clear abd; soft, mildly tender generalized, bs+ ext; no edema. Laboratory Tests 02/07 02/07 02/07 1040 1040 0650 Chemistry Sodium (137 - 145 mmol/L) 140 Potassium (3.5 - 5.1 mmol/L) 3.9 Chloride (98 - 107 mmol/L) 106 Carbon Dioxide (22 - 30 mmol/L) 24 Anion Gap (5 - 16) 9 BUN (9 - 20 mg/dL) 4 L Creatinine (0.7 - 1.2 mg/dL) 0.7 Estimated GFR (>60 ml/min) > 60 BUN/Creatinine Ratio (7 - 25 %) 5.7 L Hematology CBC w Diff NO MAN DIFF REQ WBC (4.8 - 10.8 /CUMM) 10.2 RBC (4.70 - 6.10 /CUMM) 3.31 L Hgb (14.0 - 18.0 G/DL) 7.5 L Hct (42 - 52 %) 24.2 L MCV (80.0 - 94.0 FL) 73.0 L MCH (27.0 - 31.0 PG) 22.6 L RDW (11.5 - 14.5 %) 20.3 H Plt Count (130 - 400 /CUMM) 772 H MPV (7.4 - 10.4 FL) 5.7 L Gran % (42.2 - 75.2 %) 46.8 Lymphocytes % (20.5 - 51.1 %) 34.7 Monocytes % (1.7 - 9.3 %) 12.6 H Eosinophils % (0 - 5 %) 5.1 H Basophils % (0.0 - 2.0 %) 0.8 Absolute Granulocytes (1.4 - 6.5 /CUMM) 4.8 Absolute Lymphocytes (1.2 - 3.4 /CUMM) 3.5 H Absolute Monocytes (0.10 - 0.60 /CUMM) 1.3 H Absolute Eosinophils (0.0 - 0.7 /CUMM) 0.5 Absolute Basophils (0.0 - 0.2 /CUMM) 0.1 PUBS MCHC (33.0 - 37.0 G/DL) 31.0 L ESR Westergren (0 - 10 MM) 55 H Serology Cryptococcus Ag Pending HIV 1&2 Ab Western Blot (NONREACTIVE) NONREACTIVE 02/07 02/06 02/06 0000 2100 2013 Chemistry Lactic Acid (0.7 - 2.1 mmol/L) 1.8 Cancelled Hematology CBC w Diff NO MAN DIFF REQ Cancelled WBC (4.8 - 10.8 /CUMM) 16.3 H Cancelled RBC (4.70 - 6.10 /CUMM) 3.92 L Cancelled Hgb (14.0 - 18.0 G/DL) 9.0 L Cancelled Hct (42 - 52 %) 28.8 L Cancelled MCV (80.0 - 94.0 FL) 73.6 L Cancelled MCH (27.0 - 31.0 PG) 22.9 L Cancelled RDW (11.5 - 14.5 %) 21.2 H Cancelled Plt Count (130 - 400 /CUMM) 788 H Cancelled MPV (7.4 - 10.4 FL) 6.1 L Cancelled Gran % (42.2 - 75.2 %) 67.3 Lymphocytes % (20.5 - 51.1 %) 21.1 Monocytes % (1.7 - 9.3 %) 8.4 Eosinophils % (0 - 5 %) 2.5 Basophils % (0.0 - 2.0 %) 0.7 Absolute Granulocytes (1.4 - 6.5 /CUMM) 11.0 H Absolute Lymphocytes (1.2 - 3.4 /CUMM) 3.4 Absolute Monocytes (0.10 - 0.60 /CUMM) 1.4 H Absolute Eosinophils (0.0 - 0.7 /CUMM) 0.4 Absolute Basophils (0.0 - 0.2 /CUMM) 0.1 PUBS MCHC (33.0 - 37.0 G/DL) 31.1 L Cancelled 02/06 1450 Chemistry Sodium (137 - 145 mmol/L) 140 Potassium (3.5 - 5.1 mmol/L) 4.8 Chloride (98 - 107 mmol/L) 104 Carbon Dioxide (22 - 30 mmol/L) 22 Anion Gap (5 - 16) 14 BUN (9 - 20 mg/dL) 11 Creatinine (0.7 - 1.2 mg/dL) 0.8 Estimated GFR (>60 ml/min) > 60 BUN/Creatinine Ratio (7 - 25 %) 13.8 Glucose (65 - 99 mg/dL) 145 H Calcium (8.4 - 10.2 mg/dL) 8.8 Magnesium (1.6 - 2.3 mg/dL) 1.9 Iron (49 - 181 ug/dL) 19 L TIBC (261 - 462 ug/dL) 338 Ferritin (17.9 - 464 ng/mL) 6.6 L Total Bilirubin (0.2 - 1.3 mg/dL) 0.3 AST (17 - 59 U/L) 12 L ALT (21 - 72 U/L) 29 Alkaline Phosphatase (< 127 U/L) 129 H Troponin I (<0.11 ng/ml) < 0.01 C-Reactive Prot, Quant (<1.0 mg/dL) 6.5 H Total Protein (6.3 - 8.2 g/dL) 6.8 Albumin (3.5 - 5.0 g/dL) 3.0 L Globulin (1.9 - 4.2 gm/dL) 3.8 Albumin/Globulin Ratio (1.1 - 2.2 %) 0.8 L Vitamin B12 (239 - 931 pg/mL) 586 Folate (2.76 - 20.0 ng/mL) 9.4 Coagulation PT (9.4 - 12.5 SEC) 12.6 H INR (0.90 - 1.17) 1.20 H APTT (25 - 37 SEC) 27 Hematology CBC w Diff NO MAN DIFF REQ WBC (4.8 - 10.8 /CUMM) 13.7 H RBC (4.70 - 6.10 /CUMM) 3.03 L Hgb (14.0 - 18.0 G/DL) 6.1 *L Hct (42 - 52 %) 20.7 L MCV (80.0 - 94.0 FL) 68.3 L MCH (27.0 - 31.0 PG) 20.2 L RDW (11.5 - 14.5 %) 18.0 H Plt Count (130 - 400 /CUMM) 1181 *H MPV (7.4 - 10.4 FL) 5.7 L Gran % (42.2 - 75.2 %) 72.0 Lymphocytes % (20.5 - 51.1 %) 17.3 L Monocytes % (1.7 - 9.3 %) 7.5 Eosinophils % (0 - 5 %) 2.9 Basophils % (0.0 - 2.0 %) 0.3 Absolute Granulocytes (1.4 - 6.5 /CUMM) 9.9 H Absolute Lymphocytes (1.2 - 3.4 /CUMM) 2.4 Absolute Monocytes (0.10 - 0.60 /CUMM) 1.0 H Absolute Eosinophils (0.0 - 0.7 /CUMM) 0.4 Absolute Basophils (0.0 - 0.2 /CUMM) 0 PUBS MCHC (33.0 - 37.0 G/DL) 29.5 L A/P; Patient is a 31-year-old male who was admitted with feeling fatigued, weight loss as well as shortness of breath. Patient was found to have acute blood loss anemia secondary to GI blood loss. CAT scan is consistent with colitis. Patient has been seen by GI and the plan is to do the colonoscopy. Please order stool studies to rule out infectious colitis. Further management will depend on the colonoscopy and pathology results. For now patient is getting IV PPI as well as IV fluids. He's also ordered antidiarrheal as needed. We need to rule out C. difficile as well as other infectious causes.
[2017-02-07 08:41] LABS: ABSOLUTE BASOPHIL COUNT 0.1 /CUMM (0.0-0.2); ABSOLUTE EOSINOPHIL COUNT 0.5 /CUMM (0.0-0.7); ABSOLUTE GRANULOCYTE CT 4.8 /CUMM (1.4-6.5); ABSOLUTE LYMPH COUNT 3.5 /CUMM (1.2-3.4); ABSOLUTE MONOCYTE COUNT 1.3 /CUMM (0.10-0.60); BASOPHIL % 0.8 % (0.0-2.0); EOSINOPHIL % 5.1 % (0-5); GRANULOCYTE % 46.8 % (42.2-75.2); HEMATOCRIT 24.2 % (42-52); MEAN CORPUSCULAR HGB 22.6 PG (27.0-31.0); MEAN PLATELET VOLUME 5.7 FL (7.4-10.4); PLATELET COUNT 772 /CUMM (130-400); RBC DISTRIBUTION WIDTH 20.3 % (11.5-14.5); RED BLOOD CELL CT 3.31 /CUMM (4.70-6.10); WHITE BLOOD CELL COUNT 10.2 /CUMM (4.8-10.8)
--- NOTE | 2017-02-07 13:32 | NUR ---
NURSING NOTE: PATIENT A/OX3, DENIES PAIN AT THIS TIME. PATIENT LEFT FLOOR VIA STRETCHER WITH DISTRBUTION FOR GI COLONOSCOPY. WILL AWAIT RETURN.
--- NOTE | 2017-02-07 15:00 | NUR ---
NURSING NOTE: THIS RN SPOKE WITH GI DR. MONTGOMERY REGARDING PATIENT COLONOSCOPY. THIS RN WAS INSTRUCTED TO INFORM THE TECHNICAL OPERATOR TO READ THE COLONOSCOPY NOTE AND CONTINUE WITH RECOMMENDED ORDERS. TECHNICAL OPERATOR NOTIFIED.
--- NOTE | 2017-02-07 15:00 | NUR ---
NURSING NOTE: PATIENT RETURNED TO FLOOR VIA STRETCHER WITH DISTRIBUTION FROM GI RECOVERY. PATIENT A/OX3, DENIES PAIN AT THIS TIME. VSS. WILL CONTINUE TO MONITOR.
--- NOTE | 2017-02-07 15:23 | Proc Note Colonoscopy ---
Colonoscopy Procedure Medical History: unchanged Mental Status: alert/oriented Heart/Lung Eval Prior to Sedation: within normal limits Candidate for Sedation? Yes Date of Last Colonoscopy: Never Procedure Date: 02/07/17 Procedure Type: colonoscopy w/biopsy (& intraoperative stool w/u) Engineering Design Supervisor: MANUEL CALLOWAY MD ASA Classification: II Indications: (*Please refer to Dr. Turcios's covering GI consult of 02/06/17 & my progress note of 02/07/17). INDX: 31-year-old male with at least few months of bloody diarrhea, 40 pound weight loss, colitis on CT, elevated inflammatory markers, symptomatic anemia requiring transfusion, malnutrition, positive family history of "colitis" (aunt) . Instrument (Colonoscope): single channel Meds Received: MAC Patient's Tolerance: good Complications: none Extent Reached: terminal ileum Prep: good Procedure: Baseline colonoscopy to the terminal ileum with intraoperative stool workup and numerous biopsies, was performed with the Olympus high-definition videocolonoscope, after obtaining informed consent from the patient, with the manager monitoring and pulse oximeter, after a gallon of Caty, with the assistance of Dr. Mcdermott, of [facility]. The prep was good. The patient was in the left lateral decubitus position throughout the procedure. Direct views of the rectum failed to reveal any external hemorrhoids, fissures, or perianal disease. Digital rectal exam was unremarkable, without any masses. Sphincter tone was normal. Retroflexion in the rectum failed to reveal any internal hemorrhoids or rectal ulcers. *The patient had a diffuse, circumferential, continuous colitis, from the rectum up to and including the cecum, with innumerable probable pseudopolyps scattered throughout the colon. The above gave an endoscopic appearance & distribution consistent with ulcerative colitis. There appeared to be some mild loss of haustra and some shortening of the colon, also consistent with the above. It was impossible to distinguish the probable pseudopolyps from adenomas. Future studies will have to be done with chromoendoscopy. The colonic mucosa gave a diffusely granular appearance with erythema and friability. *At all times, whenever possible during the biopsies, flat tissue was obtained adjacent to raised tissue. There were no pseudomembranes, erosions, aphthous ulcers, or exudate. The colonic mucosa was carefully inspected, both upon insertion and upon withdrawal of the colonoscope. Withdrawal time was certainly adequate. There were no diverticuli. The cecum, base of the appendix, and ileocecal valve were all identified. The last 10 cm of the terminal ileum were entered, and appeared normal. There was no gross "backwash ileitis". Confirmatory photographs were obtained. *Intraoperative stool workup was obtained for stool culture, C. difficile, Shiga toxin, Giardia Ag, Crypto Ag, Vibrio, Yersinia, and fecal calprotectin. Numerous biopsies were obtained as follows, upon exiting: ( Specimen A- TI x 2, Specimen B- flat cecum x 2, Specimen C- raised cecum x 2, Specimen D- flat right colon 2, Specimen E- raised right colon 2, Specimen F- flat transverse colon 2, Specimen G- raised transverse colon 2, Specimen H- flat left colon x 2, Specimen I- raised left colon x 2, Specimen J- flat sigmoid raised rectum x 2; probable ulcerative colitis, probable pseudopolyps, rule out CMV, rule out dysplasia, rule out Ca). Aside from the above, there were no lesions or angiodysplasias. No active lower GI bleeding was seen, although the colonic mucosa was somewhat friable after biopsies, as expected. The patient tolerated the procedure well. Documented photographs were obtained and placed inside the patient's chart. Impression: 1. Probable ulcerative colitis with pancolitis & and most likely, innumerable pseudopolyps. Biopsies of flat and raised areas obtained: (Specimen A- TI x 2, Specimen B- flat cecum x 2, Specimen C- raised cecum x 2, Specimen D- flat right colon 2, Specimen E- raised right colon 2, Specimen F- flat transverse colon 2, Specimen G- raised transverse colon 2, Specimen H- flat left colon x 2, Specimen I- raised left colon x 2, Specimen J- flat sigmoid 2, Specimen K- raised sigmoid 2, Specimen L- flat rectum 2, Specimen M- raised rectum x 2; probable ulcerative colitis, probable pseudopolyps, *rule out CMV, rule out dysplasia, rule out Ca). 2. Intraoperative stool workup: (*Intraoperative stool workup was obtained for stool culture, C. difficile, Shiga toxin, Giardia Ag, Crypto Ag, Vibrio, Yersinia, and fecal calprotectin). Recommendations: Await biopsies of TI, colon & rectum. Await intraoperative stool workup: (stool culture, C. difficile, Shiga toxin, Giardia Ag, Crypto Ag, Vibrio, Yersinia, and fecal calprotectin). I spoke to Dr. Soliman of [facility], to send biopsies for CMV stains. *Clears po and advance to low residue diet, as tolerated. *If stool workup is negative for infectious pathogens, start IV Solumedrol 40 mg BID. * Start Delzicol 400 mg tab- 2 tabs po TID. *Nutrition consult. DVT prophylaxis. Mobilize patient as tolerated. The risks and benefits of steroid therapy (i.e.- HTN/DM/osteoporosis/AVN/glaucoma/impaired wound healing/myopathy/Fam's/fluid retention/psychosis, etc.) were discussed with the patient in great detail, and he wished to proceed. Accu-Cheks as per medical team. Other recommendations as per this morning's GI progress note. For probable outpatient biologics (i.e.- Humira), and/or 6-MP, after reviewing the pathology. May carefully give Imodium as needed. *Advise continuing care consult, as patient currently does not have insurance, and the biologic agents or extremely expensive. Regarding the numerous raised areas, assuming the biopsies are benign, consideration for repeat colonoscopy with chromoendoscopy to also assess for mucosal healing x 1 year (i.e.- 01/2018). The above was discussed with the patient's RN, posoperatively, who will convey the above to the medical house staff. ADDENDUM: 02/14/2017- A. TERMINAL ILEUM, BIOPSY: ILEAL MUCOSA WITHOUT SIGNIFICANT ABNORMALITY. SEE COMMENT. B. FLAT CECUM, MULTIPLE BIOPSIES: FOCAL, MILDLY ACTIVE COLITIS. NEGATIVE FOR DYSPLASIA. SEE COMMENT. C. RAISED CECUM, MULTIPLE BIOPSIES: MODERATE CHRONIC COLITIS, MILDLY ACTIVE. NEGATIVE FOR DYSPLASIA. SEE COMMENT. D. FLAT RIGHT COLON, MULTIPLE BIOPSIES: MILD CHRONIC COLITIS WITH MODERATE ACUTE ACTIVITY. NEGATIVE FOR DYSPLASIA. E. RAISED RIGHT COLON, MULTIPLE BIOPSIES: MODERATE CHRONIC COLITIS, MODERATELY ACTIVE. GLANDULAR ATYPIA. NEGATIVE FOR DYSPLASIA. SEE COMMENT. F. FLAT TRANSVERSE COLON, MULTIPLE BIOPSIES: MODERATE CHRONIC COLITIS, MILDLY ACTIVE. NEGATIVE FOR DYSPLASIA. SEE COMMENT. G. RAISED TRANSVERSE COLON, MULTIPLE BIOPSIES: MODERATE CHRONIC COLITIS, MODERATELY ACTIVE WITH REACTIVE EPITHELIAL CHANGES. NEGATIVE FOR DYSPLASIA. *IMMUNOSTAIN FOR CMV IS NEGATIVE. SEE COMMENT. H. FLAT LEFT COLON, MULTIPLE BIOPSIES: MODERATE CHRONIC, MILDLY ACTIVE COLITIS. NEGATIVE FOR DYSPLASIA. SEE COMMENT. I. RAISED LEFT COLON, MULTIPLE BIOPSIES: MODERATE CHRONIC COLITIS, MILDLY ACTIVE WITH REACTIVE EPITHELIAL CHANGES. NEGATIVE FOR DYSPLASIA. SEE COMMENT. J. FLAT SIGMOID COLON, MULTIPLE BIOPSIES: MODERATE CHRONIC COLITIS, MODERATELY ACTIVE. NEGATIVE FOR DYSPLASIA. SEE COMMENT. K. RAISED SIGMOID COLON, MULTIPLE BIOPSIES: MODERATE CHRONIC, MODERATELY ACTIVE COLITIS WITH REACTIVE EPITHELIAL CHANGES. NEGATIVE FOR DYSPLASIA. SEE COMMENT. L. FLAT RECTUM, MULTIPLE BIOPSIES: MODERATE CHRONIC COLITIS, MODERATELY ACTIVE. NEGATIVE FOR DYSPLASIA. SEE COMMENT. M. RAISED RECTUM, MULTIPLE BIOPSIES: MODERATE CHRONIC COLITIS, MODERATELY ACTIVE. NEGATIVE FOR DYSPLASIA. SEE COMMENT. COMMENT: This case was reviewed by Dr. Helena Carballo of [facility] who notes: "Biopsies reveal pancolitis with more severe disease distally. No granulomata are identified. No viral cytopathic changes are identified. The findings are consistent with the diagnosis of inflammatory bowel disease. Based on the pattern of involvement, ulcerative colitis is favored." Dictated by: ILIA SOLIMAN MD Bxs were sent out to [facility] & co-read by Dr. Soliman, of [facility] & Dr. Carballo, of [facility]. Bxs of flat & raised areas c/w pancolitis of UC type, with more severe disease distally. No adenoma or dysplasia. No granuloma. CMV negative. No backwash ileitis. 02/07/17: intraoperative stool culture, C. difficile, Shiga toxin, Giardia Ag, Crypto Ag, Vibrio, & Yersinia- all negative. 02/07/17: *fecal calprotectin- pending. 02/11/17: QuantiFeron testing for TB- indeterminate. The pt was D/C on 02/11/17 on Prednisone 30 mg po BID, Mesalamine 800 mg TID & FeSO4 325 mg po BID. *I called the pt this p.m. regarding the benign bxs & UC. He is feeling better. I told him again he needs a visit in 2 weeks, at which point, will again discuss the options of adding 6MP vs. biologic agents, in conjunction with steroid taper. (02/07/17: Cryptococcal Ag- negative at [facility]; 02/07/17: *HIV- negative ). *No NSAIDS. *Will need to check TPMT genotype/phenotype, Hep Bs Ag, Hep C Ab, Hep Bs Ab, Hep B core Ab, & Hep A Ab. *I also told him to call the office for a CXR in view of above indeterminate QuantiFeron TB. Consideration for repeat colonoscopy with chromoendoscopy to also assess for mucosal healing x 1 year ( i.e.- 01/2018). Followup Colonscopy Screen In: pending biopsy result(s) CC: PENNY CAMPA,[facility]
[2017-02-07 16:02] VITALS: BP 120/82
[2017-02-07 18:43] LABS: ABSOLUTE BASOPHIL COUNT 0 /CUMM (0.0-0.2); ABSOLUTE EOSINOPHIL COUNT 0.4 /CUMM (0.0-0.7); ABSOLUTE GRANULOCYTE CT 7.2 /CUMM (1.4-6.5); ABSOLUTE LYMPH COUNT 2.6 /CUMM (1.2-3.4); ABSOLUTE MONOCYTE COUNT 1.1 /CUMM (0.10-0.60); BASOPHIL % 0.3 % (0.0-2.0); EOSINOPHIL % 3.3 % (0-5); GRANULOCYTE % 63.4 % (42.2-75.2); HEMATOCRIT 25.3 % (42-52); MEAN CORPUSCULAR HGB 22.9 PG (27.0-31.0); MEAN CORPUSCULAR HGB CONC 31.1 G/DL (33.0-37.0); MEAN CORPUSCULAR VOLUME 73.4 FL (80.0-94.0); MEAN PLATELET VOLUME 5.6 FL (7.4-10.4); PLATELET COUNT 765 /CUMM (130-400); RBC DISTRIBUTION WIDTH 20.8 % (11.5-14.5); RED BLOOD CELL CT 3.44 /CUMM (4.70-6.10); WHITE BLOOD CELL COUNT 11.4 /CUMM (4.8-10.8)
[2017-02-07 21:59] VITALS: BP 132/82
[2017-02-08 06:45] VITALS: BP 128/82
--- NOTE | 2017-02-08 07:17 | PN- Housestaff ---
[facility] 0717: Subjective Follow-up For: -Weakness, lethargic secondary to anemia -anemia most likely secondary to GI bleeding -recurrent bloody diarrhea most likely inflammatory bowel disease Subjective: Stable, alert and oriented X3, no acute overnight events reported, looks relaxed and comfortable. Patient went for colonoscopy yesterday, he was started on clear liquid and advanced to a low fiber diet now, he is tolerating diet well. He reported improvement of his symptom. He denies abdominal pain, nausea, vomiting, fever, or chills . Review of Systems Constitutional: Reports: no symptoms. Objective Last 24 Hrs of Vital Signs/I&O Vital Signs Date Time Temp Pulse Resp B/P Pulse O2 O2 Flow FiO2 Ox Delivery Rate 02/08 0645 98.1 102 22 128/82 97 Room Air 02/07 2159 98.3 98 20 132/82 97 Room Air 02/07 1602 98.0 97 18 120/82 96 Room Air Intake & Output 02/08 1600 02/08 0800 02/08 0000 Intake Total 1000 1200 Output Total Balance 1000 1200 Intake, IV 800 Intake, Oral 1000 400 Patient 63.503 kg Weight Physical Exam General Appearance: Alert, Oriented X3, Cooperative, No Acute Distress Skin: No Rashes HEENT: Atraumatic, PERRLA, EOMI, Mucous Membr. moist/pink Cardiovascular: Regular Rate, Normal S1, Normal S2, No Murmurs Lungs: Clear to Auscultation, Normal Air Movement Abdomen: Normal Bowel Sounds, Soft, No Tenderness Neurological: Normal Speech Extremities: No Clubbing, No Cyanosis, No Edema Current Medications: Current Medications Sig/Atul Start time Last Medication Dose Route Stop Time Status Admin Acetaminophen 650 MG Q6P PRN 02/06 1800 AC PO Chlorhexidine 1 GM .STK-MED ONE 02/07 1447 DC Gluconate TOP 02/07 1448 Ferrous Sulfate 325 MG BID 02/08 1000 AC 02/08 PO 1243 Loperamide HCl 2 MG Q3P PRN 02/07 0900 AC PO Melatonin 3 MG AT BEDTIME 02/08 2200 AC 02/08 PO 0054 Mesalamine 800 MG TID 02/07 1600 AC 02/08 PO 0907 Morphine Sulfate 2 MG Q8P PRN 02/06 1800 AC 02/07 IV 202 Pantoprazole Sodium 40 MG DAILY 02/07 1000 DC 02/08 IV 0909 Sodium Chloride 1,000 ML Q10H 02/06 1715 DC 02/08 IV 0910 Last 24 Hrs of Lab/Shawn Results Last 24 Hrs of Labs/Mics: Laboratory Tests 02/08/17 0630: CBC w Diff MAN DIFF ORDERED, RBC 3.39 L, MCV 74.1 L, MCH 22.6 L, RDW 21.2 H, MPV 5.6 L, Gran % 60.4, Lymphocytes % 25.7, Monocytes % 10.0 H, Eosinophils % 3.4, Basophils % 0.5, Absolute Granulocytes 8.6 H, Absolute Lymphocytes 3.6 H, Absolute Monocytes 1.4 H, Absolute Eosinophils 0.5, Absolute Basophils 0.1, Platelet Estimate INCREASED, Polychromasia 1+, Hypochromic-Microcytic 2+, Anisocytosis 2+, Microcytic Cells 2+, PUBS MCHC 30.6 L 02/07/17 1820: CBC w Diff NO MAN DIFF REQ, RBC 3.44 L, MCV 73.4 L, MCH 22.9 L, RDW 20.8 H, MPV 5.6 L, Gran % 63.4, Lymphocytes % 23.2, Monocytes % 9.8 H, Eosinophils % 3.3, Basophils % 0.3, Absolute Granulocytes 7.2 H, Absolute Lymphocytes 2.6, Absolute Monocytes 1.1 H, Absolute Eosinophils 0.4, Absolute Basophils 0, PUBS MCHC 31.1 L Assessment/Plan Assessment: 31-year-old male with a long history of recurrent episodes of bloody diarrhea. He also reported 40 pound weight loss over the last 5 months. Patient presents with symptomatic microcytic anemia. Patient was found to have low serum iron, with low ferritin. CT abdomen and pelvis;Circumferential wall thickening of the ascending colon with minimal adjacent fat stranding, likely representing colitis. Infectious or inflammatory etiology could be considered. #Microcystic anemia most likely secondary to chronic GI bleeding The colonoscopic findings yesterday were suspicious for UC, biopsy pathology still pending. * awaiting stool workup for infectious pathogens. including HIV, stool culture, C. difficile, Shiga toxin, Giardia Ag, Crypto Ag, Vibrio, Yersinia, and fecal calprotectin. * We will start IV steroids after ruling out infection * CBC every daily * Continue Imodium when necessary * Continue Mesalamine 800 mg TID Low fiber diet DVT prophylaxis Alps only Full code Problem List: 1. Weight loss 2. Colitis 3. Bloody diarrhea Pain Ratin Pain Location: abdominal Pain Goal: Remain pain free Pain Plan: See assessment and plan Tomorrow's Labs & Rationales: CBC and BEP MANUEL CALLOWAY MD 02/08/17 1225: Attending MD Review Statement Attending Statement Attending MD Statement: examined this patient, discuss w/resident/PA/PROPERTY PRESERVATION SPECIALIST, agreed w/resident/PA/PROPERTY PRESERVATION SPECIALIST, reviewed EMR data (avail), discussed with nursing, discussed with case mgmt, reviewed images, amended to note Attending Assessment/Plan: Patient seen and examined, feeling tired. Status post colonoscopy yesterday which showed pancolitis. Biopsies were obtained. Cultures have been sent and still pending. Patient was started on mesalamine. Diarrhea has improved slightly. Vital Signs Date Time Temp Pulse Resp B/P Pulse O2 O2 Flow FiO2 Ox Delivery Rate 02/08 0645 98.1 102 22 128/82 97 Room Air 02/07 2159 98.3 98 20 132/82 97 Room Air 02/07 1602 98.0 97 18 120/82 96 Room Air on exam; aox3, nad. looks pale. cv; s1, s2, rrr. resp; clear abd; soft, nt, bs+ ext; no edema Laboratory Tests 02/08 02/07 0630 1820 Hematology CBC w Diff MAN DIFF ORDERED NO MAN DIFF REQ WBC (4.8 - 10.8 /CUMM) 14.2 H 11.4 H RBC (4.70 - 6.10 /CUMM) 3.39 L 3.44 L Hgb (14.0 - 18.0 G/DL) 7.7 L 7.9 L Hct (42 - 52 %) 25.1 L 25.3 L MCV (80.0 - 94.0 FL) 74.1 L 73.4 L MCH (27.0 - 31.0 PG) 22.6 L 22.9 L RDW (11.5 - 14.5 %) 21.2 H 20.8 H Plt Count (130 - 400 /CUMM) 660 H 765 H MPV (7.4 - 10.4 FL) 5.6 L 5.6 L Gran % (42.2 - 75.2 %) 60.4 63.4 Lymphocytes % (20.5 - 51.1 %) 25.7 23.2 Monocytes % (1.7 - 9.3 %) 10.0 H 9.8 H Eosinophils % (0 - 5 %) 3.4 3.3 Basophils % (0.0 - 2.0 %) 0.5 0.3 Absolute Granulocytes (1.4 - 6.5 /CUMM) 8.6 H 7.2 H Absolute Lymphocytes (1.2 - 3.4 /CUMM) 3.6 H 2.6 Absolute Monocytes (0.10 - 0.60 /CUMM) 1.4 H 1.1 H Absolute Eosinophils (0.0 - 0.7 /CUMM) 0.5 0.4 Absolute Basophils (0.0 - 0.2 /CUMM) 0.1 0 Platelet Estimate (ADEQUATE) INCREASED Polychromasia 1+ Hypochromic-Microcytic 2+ Anisocytosis 2+ Microcytic Cells 2+ PUBS MCHC (33.0 - 37.0 G/DL) 30.6 L 31.1 L 02/07 02/07 1400 1400 Other Body Source Stool Fat, Qual Cancelled Stool Calprotectin Pending A/P; Patient is a 31-year-old male who was admitted with feeling fatigued, weight loss as well as shortness of breath. Patient was found to have acute blood loss anemia secondary to GI blood loss as well as imaging evidence of colitis. Status post colonoscopy yesterday which showed pancolitis as well as multiple pseudopolyps. Biopsies were taken and stool cultures have been sent. Patient was started on mesalamine. Awaiting stool cultures, if remain negative then he will be started on IV steroids. Diet will be advanced slowly to low residue diet. Patient will be started on Iron replacement therapy. He also has Imodium ordered as needed. H&H is relatively stable although still low. We'll monitor. Further management will depend on the biopsy results. Patient will be seen by insurance eligibility person.
--- NOTE | 2017-02-08 07:28 | PN- Gastroenterology ---
Assessment/Plan Assessment/Recommendations: (*Please refer to covering GI consultation of 02/06/2017, per Dr. Turcios. The patient was seen by myself initially on 02/07/17, in the presence of his girlfriend, Laura, as per patient request). 31-year-old male, with intermittent bloody diarrhea since 2015. The patient lost 40 pounds over the past 4 months. He denied any rashes or arthralgias, except for some mild low back pain. There is a questionable family history of "colitis" in the patient's aunt. The patient rarely takes Ibuprofen. He denied any recent antibiotics, travel, or food ingestion, except for rare sushi. Upon further questioning, he may have had bloody diarrhea in his early 20s. Denied any abdominal pain. The diarrhea was every 1-2 hours and secretory in nature, with nocturnal stools. He denied any upper GI symptoms, hematemesis, or melena. The patient was seen for the above in the [facility] *10/18/2016, at which point, CT abdomen and pelvis with IV contrast revealed diffuse mild bowel wall thickening of the colon , from the rectum through the hepatic flexure, with sparing of the right colon and cecum. There was minimal pericolonic stranding most notable at the mid descending colon. Reticula. The appendix was normal, as was the small bowel. 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 There is no family history of colon cancer. The patient was admitted to [facility] 02/06/2017 with the above painless bloody diarrhea, microcytic anemia, and weight loss. He was seen in covering GI consultation by Dr. Turcios that day, and a CAT AP scan was ordered. He had thrombocytosis, which most likely is reactive in nature from probable iron deficiency. He received a gallon of GoLYTELY, in anticipation of colonoscopy later today. *The patient previously drank alcohol heavily, stopping 2015. He stopped cigarette smoking a little over 2 weeks prior to admission. He denied any illicit drug use, although remote urine toxicologies were positive for cannabis. *For some reason, no stool workup has been ordered for infectious pathogens, C. difficile, etc, nor any ESR. *The patient received 2u PRBC overnight on 02/06/17. *Upon presentation to the [facility] 02/06/2017, he was normotensive, tachycardic, afebrile (Tm 99.4), with normal O2 sat. 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 02/06/17: Admission labs- WBC 13.7 (72% gran/10 gran Ab), *H/H 6.1/20.7, MCV 68.3, RDW 18, *PLT 1181, PT 12.6, INR 1.20, PTT 27, admission CMP significant for glucose 145, BUN/Cr 11/0.8, GFR > 60, normal electrolytes with sodium 140, potassium 4.8, bicarbonate 22, AG 14, magnesium 1.9, calcium 8.8, albumin 3.0, globulin 3.8, TBil 0.3, alk phos 129, AST 12, ALT 19, troponin < .01, Iron 19, TIBC 338, *iron saturation 5.6%, *ferritin 6.6, B12 586, folate 9.4, * elevated CRP 6.5. 02/07/17: WBC 16.3, H/H 9.0/28.8 (*post 2u PRBC), PLT 788 02/06/17: EKG- ST @ 105, normal axis, normal interval. 02/06/17: CT ABD & PELVIS W ORAL & IV CONTRAST- 1. Circumferential wall thickening of the ascending colon with minimal adjacent fat stranding, likely representing colitis. Infectious or inflammatory etiology could be considered. Ischemic etiology is thought less likely. Unchanged prominent mesenteric lymph nodes, likely reactive. 2. No large or small bowel obstruction. No megacolon. Normal appendix. 3. New subpleural densities within the right middle and lower lobes which are partially imaged and could represent atelectasis or early infiltrates. Follow up chest imaging could be considered if clinically indicated. *As of 02/07/2017, the patient took 1 gallon of GoLYTELY. He was transfused 2 units PRBC overnight. He had diarrhea as expected from the prep. He denied any worsening of his rectal bleeding. He had chronic low back pain, but denied any additional arthralgias or rashes. He denied any chest pain. He denied any shortness of breath. His dyspnea on exertion is better after transfusion. He denied any abdominal pain. He was hemodynamically stable and afebrile. *With at least a few months of bloody diarrhea, 40 lb weight loss, low albumin, elevated CRP, colitis on CT, etc., Most likely, the patient has IBD, probably of the UC variant > Crohn's, by the distribution. Infectious etiology, C. difficile, less likely. He was using small amounts of Ibuprofen, doubt NSAID colitis. Sincerely doubt ischemia. 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 He has never had a colonoscopy. There apparently is a family history of colitis in 1 of his aunts. His thrombocytosis is most likely from iron deficiency. 02/07/17: Colonoscopy to TI w/biopsies (& intraoperative stool w/u)- Impression: 1. Probable ulcerative colitis with pancolitis & and most likely, innumerable pseudopolyps. Biopsies of flat and raised areas obtained: (Specimen A- TI x 2, Specimen B- flat cecum x 2, Specimen C- raised cecum x 2, Specimen D- flat right colon 2, Specimen E- raised right colon 2, Specimen F- flat transverse colon 2, Specimen G- raised transverse colon 2, Specimen H- flat left colon x 2, Specimen I- raised left colon x 2, Specimen J- flat sigmoid 2, Specimen K- raised sigmoid 2, Specimen L- flat rectum 2, Specimen M- raised rectum x 2; probable ulcerative colitis, probable pseudopolyps, *rule out CMV, rule out dysplasia, rule out Ca). 2. Intraoperative stool workup: (*Intraoperative stool workup was obtained for stool culture, C. difficile, Shiga toxin, Giardia Ag, Crypto Ag, Vibrio, Yersinia, and fecal calprotectin). 02/07/17: *ESR 55; *HIV- negative *As of 02/08/2017, the patient was slowly improving. He still had diarrhea as expected, as steroids have not yet been started, awaiting stool workup for infectious pathogens. Mesalamine 800 mg TID was prescribed 02/07/17, along with Imodium. The diarrhea is slowing down a bit. There was scant blood per rectum. The patient noted some mild LLQ cramps. He denied any fevers or chills. He tolerated clears and was advanced to a low residue diet. The colonoscopic findings of 02/07/17 were suspicious for UC- pathology pending. *SUGGEST: Low residue diet as tolerated. *Await 02/07/17: intraoperative stool culture, C. difficile, Shiga toxin, Giardia Ag, Crypto Ag, Vibrio, Yersinia, and fecal calprotectin. Imodium as needed for now. Continue Mesalamine 800 mg po TID. * Await 02/07/17: biopsies of TI, colon & rectum (flat & raised areas). *I spoke to Dr. Siddiqi of [facility] postop, to send biopsies for CMV stains.If stool workup is negative for infectious pathogens, start IV Solumedrol 40 mg BID. *Nutrition consult. DVT prophylaxis. Mobilize patient as tolerated. The risks and benefits of steroid therapy (i.e.- HTN/DM/osteoporosis/AVN/glaucoma/ impaired wound healing/myopathy/Fam's/fluid retention/psychosis, etc.) were discussed with the patient in great detail, and he wished to proceed. Accu- Cheks as per medical team. For probable outpatient biologics (i.e.- Humira), and/or 6-MP, after reviewing the pathology. *Advise continuing care consult, as patient currently does not have insurance, and the biologic agents or extremely expensive. Regarding the numerous raised areas, assuming the biopsies are benign, consideration for repeat colonoscopy with chromoendoscopy to also assess for mucosal healing x 1 year (i.e.- 01/2018). Definitive therapy will be started after obtaining pathology results. Transfuse as needed, keeping Hgb > 7. Eventual iron repletion & nutrtional supplements. *No NSAIDS. * Consideration for checking Hep Bs Ag, Hep C Ab, Hep Bs Ab, Hep B core Ab, Hep A Ab, QuantiFERON TB testing & TPMT genotype/phenotype, in case biologic agents and/or 6 MP are eventually needed. Compliance with outpatient GI follow-up was stressed to the patient. The above findings and recommendations were discussed with the medical house staff. Further recommendations to follow, depending on clinical course. Problem List: 1. Bloody diarrhea 2. Colitis 3. Symptomatic anemia 4. Weight loss 5. Malnutrition 6. Abnormal CT of the abdomen 7. Family history of colitis Subjective Subjective: 02/07/17: Colonoscopy to TI w/biopsies (& intraoperative stool w/u)- Impression: 1. Probable ulcerative colitis with pancolitis & and most likely, innumerable pseudopolyps. Biopsies of flat and raised areas obtained: (Specimen A- TI x 2, Specimen B- flat cecum x 2, Specimen C- raised cecum x 2, Specimen D- flat right colon 2, Specimen E- raised right colon 2, Specimen F- flat transverse colon 2, Specimen G- raised transverse colon 2, Specimen H- flat left colon x 2, Specimen I- raised left colon x 2, Specimen J- flat sigmoid 2, Specimen K- raised sigmoid 2, Specimen L- flat rectum 2, Specimen M- raised rectum x 2; probable ulcerative colitis, probable pseudopolyps, *rule out CMV, rule out dysplasia, rule out Ca). 2. Intraoperative stool workup: (*Intraoperative stool workup was obtained for stool culture, C. difficile, Shiga toxin, Giardia Ag, Crypto Ag, Vibrio, Yersinia, and fecal calprotectin). 02/07/17: *ESR 55; *HIV- negative *As of 02/08/2017, the patient was slowly improving. He still had diarrhea as expected, as steroids have not yet been started, awaiting stool workup for infectious pathogens. Mesalamine 800 mg TID was prescribed 02/07/17, along with Imodium. The diarrhea is slowing down a bit. There was scant blood per rectum. The patient noted some mild LLQ cramps. He denied any fevers or chills. He tolerated clears and was advanced to a low residue diet. The colonoscopic findings of 02/07/17 were suspicious for UC- pathology pending. Review of Systems: Full 14 point review of systems otherwise noncontributory, and as above. Constitutional: Reports: malaise, weakness, unexplained weight loss (40 lb). Denies: chills, fever. EENTM: Denies: blurred vision, visual changes, ear pain, hearing changes, epistaxis, throat pain. Cardiovascular: Reports: dyspnea on exertion- better after transfusions. Denies: chest pain, orthopena, peripheral edema, syncope. Respiratory: Reports: short of breath- better after transfusion. Denies: cough, hemoptysis, sputum production, stridor, wheezing. GI: Reports: see HPI, diarrhea slightly better, scant BRBPR, mild LLQ cramps Denies: constipation, nausea, vomiting. Genitourinary: Denies: discharge, dysuria, frequency, hematuria. Musculoskeletal: Reports; low back pain (chronic). Denies: joint pain, joint swelling. Skin: Denies: erythema, rash. Objective Vital Signs and I&Os Vital Signs Date Time Temp Pulse Resp B/P Pulse O2 O2 Flow FiO2 Ox Delivery Rate 02/08 0645 98.1 102 22 128/82 97 Room Air 02/07 2159 98.3 98 20 132/82 97 Room Air 02/07 1602 98.0 97 18 120/82 96 Room Air 02/07 0800 Room Air Intake & Output 02/08 1600 02/08 0400 02/07 1600 02/07 0400 02/06 1600 02/06 0400 Intake Total 1200 1500 1190 1000 Output Total Balance 1200 1500 1190 1000 Intake, Blood 350 Product Intake, IV 800 7910 950 8926 Intake, Oral 400 0 540 0 Number 3 Bowel Movements Patient 140 lb 150 lb Weight Physical Exam: Well-developed, slightly malnourished, thin pale male, in no apparent distress. Sclera anicteric. Conjunctiva less pale (after transfusion). Oropharynx clear. No oral thrush. No aphthous ulcers. There is no adenopathy, thyromegaly, or JVD. No peripheral stigmata of inflammatory bowel disease or chronic liver disease on exam. No spiders on the anterior chest wall. No gynecomastia. No CVA tenderness. Lungs: clear to A&P. Heart exam: regular rate rhythm S1 and S2 , without any murmur. Abdominal exam: normal bowel sounds, soft belly, nontender, without guarding or rebound. No mass. Clinically, without megacolon. No organomegaly. No fluid shift. No pulsatile mass. Digital rectal exam on admission reportedly revealed a few flecks of blood (not repeated at present). Extremities: without C, C, or E. No palpable cords. No palmar erythema. No Dupuytren's contractures. Distal pulses 2+ bilaterally. DTRs 2+ bilaterally. Alert and oriented x 3. No tremor. No asterixis. No rash. No acute arthropathy. Current Medications: Current Medications Sig/Atul Start time Last Medication Dose Route Stop Time Status Admin Acetaminophen 650 MG Q6P PRN 02/06 1800 AC PO Chlorhexidine 1 GM .STK-MED ONE 02/07 1447 DC Gluconate TOP 02/07 1448 Loperamide HCl 2 MG Q3P PRN 02/07 0900 AC PO Melatonin 3 MG AT BEDTIME 02/08 2200 AC 02/08 PO 0054 Mesalamine 800 MG TID 02/07 1600 AC 02/07 PO 202 Morphine Sulfate 2 MG Q8P PRN 02/06 1800 AC 02/07 IV 202 Pantoprazole Sodium 40 MG DAILY 02/07 1000 AC 02/07 IV 0948 Patient Medication 1 ED ONE ONE 02/07 1400 DC Teaching ED 02/07 1401 Sodium Chloride 1,000 ML Q10H 02/06 1715 AC 02/08 IV 0054 Results Pertinent Lab Results: Laboratory Tests 02/08 02/07 02/07 0630 1820 1400 Hematology CBC w Diff Pending NO MAN DIFF REQ WBC (4.8 - 10.8 /CUMM) Pending 11.4 H RBC (4.70 - 6.10 /CUMM) Pending 3.44 L Hgb (14.0 - 18.0 G/DL) Pending 7.9 L Hct (42 - 52 %) Pending 25.3 L MCV (80.0 - 94.0 FL) Pending 73.4 L MCH (27.0 - 31.0 PG) Pending 22.9 L RDW (11.5 - 14.5 %) Pending 20.8 H Plt Count (130 - 400 /CUMM) Pending 765 H MPV (7.4 - 10.4 FL) Pending 5.6 L Gran % (42.2 - 75.2 %) 63.4 Lymphocytes % (20.5 - 51.1 %) 23.2 Monocytes % (1.7 - 9.3 %) 9.8 H Eosinophils % (0 - 5 %) 3.3 Basophils % (0.0 - 2.0 %) 0.3 Absolute Granulocytes (1.4 - 6.5 /CUMM) 7.2 H Absolute Lymphocytes (1.2 - 3.4 /CUMM) 2.6 Absolute Monocytes (0.10 - 0.60 /CUMM) 1.1 H Absolute Eosinophils (0.0 - 0.7 /CUMM) 0.4 Absolute Basophils (0.0 - 0.2 /CUMM) 0 PUBS MCHC (33.0 - 37.0 G/DL) Pending 31.1 L Other Body Source Stool Fat, Qual Cancelled 02/07 02/07 02/07 1400 1040 1040 Hematology ESR Westergren (0 - 10 MM) 55 H Other Body Source Stool Calprotectin Pending Serology Cryptococcus Ag (NEGATIVE) POSITIVE HIV 1&2 Ab Western Blot (NONREACTIVE) NONREACTIVE 02/07 02/07 0650 0000 Chemistry Sodium (137 - 145 mmol/L) 140 Potassium (3.5 - 5.1 mmol/L) 3.9 Chloride (98 - 107 mmol/L) 106 Carbon Dioxide (22 - 30 mmol/L) 24 Anion Gap (5 - 16) 9 BUN (9 - 20 mg/dL) 4 L Creatinine (0.7 - 1.2 mg/dL) 0.7 Estimated GFR (>60 ml/min) > 60 BUN/Creatinine Ratio (7 - 25 %) 5.7 L Lactic Acid (0.7 - 2.1 mmol/L) 1.8 Hematology CBC w Diff NO MAN DIFF REQ NO MAN DIFF REQ WBC (4.8 - 10.8 /CUMM) 10.2 16.3 H RBC (4.70 - 6.10 /CUMM) 3.31 L 3.92 L Hgb (14.0 - 18.0 G/DL) 7.5 L 9.0 L Hct (42 - 52 %) 24.2 L 28.8 L MCV (80.0 - 94.0 FL) 73.0 L 73.6 L MCH (27.0 - 31.0 PG) 22.6 L 22.9 L RDW (11.5 - 14.5 %) 20.3 H 21.2 H Plt Count (130 - 400 /CUMM) 772 H 788 H MPV (7.4 - 10.4 FL) 5.7 L 6.1 L Gran % (42.2 - 75.2 %) 46.8 67.3 Lymphocytes % (20.5 - 51.1 %) 34.7 21.1 Monocytes % (1.7 - 9.3 %) 12.6 H 8.4 Eosinophils % (0 - 5 %) 5.1 H 2.5 Basophils % (0.0 - 2.0 %) 0.8 0.7 Absolute Granulocytes (1.4 - 6.5 /CUMM) 4.8 11.0 H Absolute Lymphocytes (1.2 - 3.4 /CUMM) 3.5 H 3.4 Absolute Monocytes (0.10 - 0.60 /CUMM) 1.3 H 1.4 H Absolute Eosinophils (0.0 - 0.7 /CUMM) 0.5 0.4 Absolute Basophils (0.0 - 0.2 /CUMM) 0.1 0.1 PUBS MCHC (33.0 - 37.0 G/DL) 31.0 L 31.1 L 02/06 1450 Chemistry Sodium (137 - 145 mmol/L) 140 Potassium (3.5 - 5.1 mmol/L) 4.8 Chloride (98 - 107 mmol/L) 104 Carbon Dioxide (22 - 30 mmol/L) 22 Anion Gap (5 - 16) 14 BUN (9 - 20 mg/dL) 11 Creatinine (0.7 - 1.2 mg/dL) 0.8 Estimated GFR (>60 ml/min) > 60 BUN/Creatinine Ratio (7 - 25 %) 13.8 Glucose (65 - 99 mg/dL) 145 H Lactic Acid Cancelled Calcium (8.4 - 10.2 mg/dL) 8.8 Magnesium (1.6 - 2.3 mg/dL) 1.9 Iron (49 - 181 ug/dL) 19 L TIBC (261 - 462 ug/dL) 338 Ferritin (17.9 - 464 ng/mL) 6.6 L Total Bilirubin (0.2 - 1.3 mg/dL) 0.3 AST (17 - 59 U/L) 12 L ALT (21 - 72 U/L) 29 Alkaline Phosphatase (< 127 U/L) 129 H Troponin I (<0.11 ng/ml) < 0.01 C-Reactive Prot, Quant (<1.0 mg/dL) 6.5 H Total Protein (6.3 - 8.2 g/dL) 6.8 Albumin (3.5 - 5.0 g/dL) 3.0 L Globulin (1.9 - 4.2 gm/dL) 3.8 Albumin/Globulin Ratio (1.1 - 2.2 %) 0.8 L Vitamin B12 (239 - 931 pg/mL) 586 Folate (2.76 - 20.0 ng/mL) 9.4 Coagulation PT (9.4 - 12.5 SEC) 12.6 H INR (0.90 - 1.17) 1.20 H APTT (25 - 37 SEC) 27 Hematology CBC w Diff Cancelled NO MAN DIFF REQ WBC (4.8 - 10.8 /CUMM) Cancelled 13.7 H RBC (4.70 - 6.10 /CUMM) Cancelled 3.03 L Hgb (14.0 - 18.0 G/DL) Cancelled 6.1 *L Hct (42 - 52 %) Cancelled 20.7 L MCV (80.0 - 94.0 FL) Cancelled 68.3 L MCH (27.0 - 31.0 PG) Cancelled 20.2 L RDW (11.5 - 14.5 %) Cancelled 18.0 H Plt Count (130 - 400 /CUMM) Cancelled 1181 *H MPV (7.4 - 10.4 FL) Cancelled 5.7 L Gran % (42.2 - 75.2 %) 72.0 Lymphocytes % (20.5 - 51.1 %) 17.3 L Monocytes % (1.7 - 9.3 %) 7.5 Eosinophils % (0 - 5 %) 2.9 Basophils % (0.0 - 2.0 %) 0.3 Absolute Granulocytes (1.4 - 6.5 /CUMM) 9.9 H Absolute Lymphocytes (1.2 - 3.4 /CUMM) 2.4 Absolute Monocytes (0.10 - 0.60 /CUMM) 1.0 H Absolute Eosinophils (0.0 - 0.7 /CUMM) 0.4 Absolute Basophils (0.0 - 0.2 /CUMM) 0 PUBS MCHC (33.0 - 37.0 G/DL) Cancelled 29.5 L Imaging/Other Studies: 02/06/17: EKG- ST @ 105, normal axis, normal interval. 02/06/17: CT ABD & PELVIS W ORAL & IV CONTRAST- 1. Circumferential wall thickening of the ascending colon with minimal adjacent fat stranding, likely representing colitis. Infectious or inflammatory etiology could be considered. Ischemic etiology is thought less likely. Unchanged prominent mesenteric lymph nodes, likely reactive. 2. No large or small bowel obstruction. No megacolon. Normal appendix. 3. New subpleural densities within the right middle and lower lobes which are partially imaged and could represent atelectasis or early infiltrates. Follow up chest imaging could be considered if clinically indicated. 02/07/17: Colonoscopy to TI w/biopsies (& intraoperative stool w/u)- Impression: 1. Probable ulcerative colitis with pancolitis & and most likely, innumerable pseudopolyps. Biopsies of flat and raised areas obtained: (Specimen A- TI x 2, Specimen B- flat cecum x 2, Specimen C- raised cecum x 2, Specimen D- flat right colon 2, Specimen E- raised right colon 2, Specimen F- flat transverse colon 2, Specimen G- raised transverse colon 2, Specimen H- flat left colon x 2, Specimen I- raised left colon x 2, Specimen J- flat sigmoid 2, Specimen K- raised sigmoid 2, Specimen L- flat rectum 2, Specimen M- raised rectum x 2; probable ulcerative colitis, probable pseudopolyps, *rule out CMV, rule out dysplasia, rule out Ca). 2. Intraoperative stool workup: (*Intraoperative stool workup was obtained for stool culture, C. difficile, Shiga toxin, Giardia Ag, Crypto Ag, Vibrio, Yersinia, and fecal calprotectin).
[2017-02-08 08:19] LABS: ABSOLUTE BASOPHIL COUNT 0.1 /CUMM (0.0-0.2); ABSOLUTE EOSINOPHIL COUNT 0.5 /CUMM (0.0-0.7); ABSOLUTE GRANULOCYTE CT 8.6 /CUMM (1.4-6.5); ABSOLUTE LYMPH COUNT 3.6 /CUMM (1.2-3.4); ABSOLUTE MONOCYTE COUNT 1.4 /CUMM (0.10-0.60); BASOPHIL % 0.5 % (0.0-2.0); EOSINOPHIL % 3.4 % (0-5); GRANULOCYTE % 60.4 % (42.2-75.2); HEMATOCRIT 25.1 % (42-52); MEAN CORPUSCULAR HGB 22.6 PG (27.0-31.0); MEAN CORPUSCULAR HGB CONC 30.6 G/DL (33.0-37.0); MEAN CORPUSCULAR VOLUME 74.1 FL (80.0-94.0); MEAN PLATELET VOLUME 5.6 FL (7.4-10.4); PLATELET COUNT 660 /CUMM (130-400); RBC DISTRIBUTION WIDTH 21.2 % (11.5-14.5); RED BLOOD CELL CT 3.39 /CUMM (4.70-6.10); WHITE BLOOD CELL COUNT 14.2 /CUMM (4.8-10.8)
[2017-02-08 14:44] VITALS: BP 116/63
--- NOTE | 2017-02-08 20:37 | Event Note ---
Event Note Event Note: Serology for cryptococcus antigen was found to be positive and if we see titers they are negative upon dilution. I called the lab, [facility] to clarify this thing. I was told that generally cryptococcal antigen is positive but upon dilution titers are negative which means that severity is low. I also called Jose Prieto MD to clarify more. I told him about patient in detail. According to him it doesn't look like worrisome as patient is stable but he wants lab to send out blood to [facility] to confirm the test. I told him need of IV steroids in the setting of ulcerative colitis. He told me to hold off IV steroids for now until we confirm that cryptococcal antigen test is negative. I called the lab and put an order for send out for cryptococcal antigen test. Please note that patient's HIV test is nonreactive. All his stool cultures including Cryptosporidium, Giardia, C. difficile, vibrio, Yersinia, Shigella are negative.
[2017-02-09 00:30] VITALS: BP 130/84
[2017-02-09 07:32] VITALS: BP 126/80
--- NOTE | 2017-02-09 07:45 | NUR ---
SPOKE WITH MD AGUAYO REGARDING IV STEROIDS THERE WAS A QUESTION OF CONTINUING THERAPY BASED ON CRYPTOCOCCUS TITER IN PT NOTES, WILL CONTINUE ADMINISTRATION PER ORDER.
--- NOTE | 2017-02-09 08:09 | PN- Housestaff ---
See Addendum Subjective Follow-up For: -Weakness, lethargic secondary to anemia -anemia most likely secondary to GI bleeding -recurrent bloody diarrhea most likely inflammatory bowel disease Subjective: Stable, alert and oriented X3, no acute overnight events reported, looks relaxed and comfortable. He is on low fiber diet and tolerating well. He reported improvement of his symptom. He denies abdominal pain, nausea, vomiting, fever, or chills . Review of Systems Constitutional: Reports: no symptoms. Objective Last 24 Hrs of Vital Signs/I&O Vital Signs Date Time Temp Pulse Resp B/P Pulse O2 O2 Flow FiO2 Ox Delivery Rate 02/09 0900 95 130/80 02/09 0732 99.0 108 18 126/80 96 Room Air 02/09 0030 99.2 111 20 130/84 96 Room Air 02/08 1444 98.0 98 20 116/63 98 Room Air Intake & Output 02/09 1600 02/09 0800 02/09 0000 Intake Total 240 500 Output Total Balance 240 500 Intake, Oral 240 500 Number 1 Bowel Movements Physical Exam General Appearance: Alert, Oriented X3, Cooperative, No Acute Distress Skin: No Rashes HEENT: Atraumatic, PERRLA, EOMI, Mucous Membr. moist/pink Cardiovascular: Regular Rate, Normal S1, Normal S2, No Murmurs Lungs: Clear to Auscultation, Normal Air Movement Abdomen: Normal Bowel Sounds, Soft, No Tenderness Neurological: Normal Speech Extremities: No Clubbing, No Cyanosis, No Edema Current Medications: Current Medications Sig/Atul Start time Last Medication Dose Route Stop Time Status Admin Acetaminophen 650 MG Q6P PRN 02/06 1800 AC PO Ferrous Sulfate 325 MG BID 02/08 1000 AC 02/09 PO 0844 Loperamide HCl 2 MG Q3P PRN 02/07 0900 AC PO Melatonin 3 MG AT BEDTIME 02/08 2200 AC 02/08 PO 2144 Mesalamine 800 MG TID 02/07 1600 AC 02/09 PO 0844 Methylprednisolone 40 MG Q12 02/08 2200 AC 02/09 IV 0844 Morphine Sulfate 2 MG Q8P PRN 02/06 1800 AC 02/07 IV 2026 Sodium Chloride 1,000 ML Q10H 02/06 1715 DC 02/08 IV 0910 Last 24 Hrs of Lab/Shawn Results Last 24 Hrs of Labs/Mics: Laboratory Tests 02/09/17 0645: CBC w Diff NO MAN DIFF REQ, RBC 3.80 L, MCV 74.1 L, MCH 22.8 L, RDW 21.0 H, MPV 5.8 L, Gran % 90.5 H, Lymphocytes % 8.1 L, Monocytes % 1.2 L, Eosinophils % 0.1, Basophils % 0.1, Absolute Granulocytes 9.7 H, Absolute Lymphocytes 0.9 L, Absolute Monocytes 0.1 L, Absolute Eosinophils 0, Absolute Basophils 0, PUBS MCHC 30.8 L Assessment/Plan Assessment: 31-year-old male with a long history of recurrent episodes of bloody diarrhea. He also reported 40 pound weight loss over the last 5 months. Patient presents with symptomatic microcytic anemia. Patient was found to have low serum iron, with low ferritin. CT abdomen and pelvis;Circumferential wall thickening of the ascending colon with minimal adjacent fat stranding, likely representing colitis. He went for colonoscopy 2 days ago that proved colitis and suggestive of inflammatory bowel disease. GI is on board. #Microcystic anemia most likely secondary to chronic GI bleeding biopsy pathology still pending. Calprotectin still pending. * awaiting Cryptococcus result (send out) * We will continue IV steroids, we will follow GI recommendation about switching to oral. * CBC every daily * Continue Imodium when necessary * Continue Mesalamine 800 mg TID Low fiber diet DVT prophylaxis Alps only Full code Problem List: 1. Weight loss 2. Colitis Pain Ratin Pain Location: abd Pain Goal: Remain pain free Pain Plan: see A&P Tomorrow's Labs & Rationales: cbc and bep
[2017-02-09 08:23] LABS: ABSOLUTE BASOPHIL COUNT 0 /CUMM (0.0-0.2); ABSOLUTE EOSINOPHIL COUNT 0 /CUMM (0.0-0.7); ABSOLUTE GRANULOCYTE CT 9.7 /CUMM (1.4-6.5); ABSOLUTE LYMPH COUNT 0.9 /CUMM (1.2-3.4); ABSOLUTE MONOCYTE COUNT 0.1 /CUMM (0.10-0.60); BASOPHIL % 0.1 % (0.0-2.0); EOSINOPHIL % 0.1 % (0-5); HEMATOCRIT 28.2 % (42-52); MEAN CORPUSCULAR HGB 22.8 PG (27.0-31.0); MEAN CORPUSCULAR HGB CONC 30.8 G/DL (33.0-37.0); MEAN CORPUSCULAR VOLUME 74.1 FL (80.0-94.0); MEAN PLATELET VOLUME 5.8 FL (7.4-10.4); WHITE BLOOD CELL COUNT 10.7 /CUMM (4.8-10.8)
[2017-02-09 08:43] LABS: GRANULOCYTE % 90.5 % (42.2-75.2); PLATELET COUNT 711 /CUMM (130-400)
[2017-02-09 09:00] VITALS: BP 130/80
[2017-02-09 14:27] VITALS: BP 130/80
--- NOTE | 2017-02-09 17:54 | Event Note ---
See Addendum Event Note Event Note: I was informed by the nurse that patient heartrate went up to 150s during ambulation. Patient was examined by me personally, he denied chest pain, shortness breath but he reported palpitation. Heartrate at bedside was 100. Patient has a sister who has A. fib. Respiratory: Clear for auscultation CVS: Tachycardia, Regular heartrate, Normal S1 and S2 with no murmur. EKG was done: Sinus tachycardia (106) with ST depression on lead V4, V5, and V6. serial troponin and EKG were ordered, patient will be transferred to telemetry for overnight heart monitoring. The plan was discussed and agreed with the patient and the residents.
[2017-02-09 18:12] VITALS: BP 136/82
--- NOTE | 2017-02-09 19:19 | PN- Gastroenterology ---
Assessment/Plan Assessment/Recommendations: (*Please refer to covering GI consultation of 02/06/2017, per Dr. Turcios. The patient was seen by myself initially on 02/07/17, in the presence of his girlfriend, Laura, as per patient request). 31-year-old male, with intermittent bloody diarrhea since 2015. The patient lost 40 pounds over the past 4 months. He denied any rashes or arthralgias, except for some mild low back pain. There is a questionable family history of "colitis" in the patient's aunt. The patient rarely takes Ibuprofen. He denied any recent antibiotics, travel, or food ingestion, except for rare sushi. Upon further questioning, he may have had bloody diarrhea in his early 20s. Denied any abdominal pain. The diarrhea was every 1-2 hours and secretory in nature, with nocturnal stools. He denied any upper GI symptoms, hematemesis, or melena. The patient was seen for the above in the [place] [facility] *10/18/2016, at which point, CT abdomen and pelvis with IV contrast revealed diffuse mild bowel wall thickening of the colon , from the rectum through the hepatic flexure, with sparing of the right colon and cecum. There was minimal pericolonic stranding most notable at the mid descending colon. Reticula. The appendix was normal, as was the small bowel. Unfortunately, the patient did not follow up with any software licensing specialist since then, despite being instructesd to do so by the ER, due to "lack of insurance". There is no family history of colon cancer. The patient was admitted to [facility] 02/06/2017 with the above painless bloody diarrhea, microcytic anemia, and weight loss. He was seen in covering GI consultation by Dr. Turcios that day, and a CAT AP scan was ordered. He had thrombocytosis, which most likely is reactive in nature from probable iron deficiency. He received a gallon of GoLYTELY, in anticipation of colonoscopy later today. *The patient previously drank alcohol heavily, stopping 2015. He stopped cigarette smoking a little over 2 weeks prior to admission. He denied any illicit drug use, although remote urine toxicologies were positive for cannabis. *For some reason, no stool workup has been ordered for infectious pathogens, C. difficile, etc, nor any ESR. *The patient received 2u PRBC overnight on 02/06/17. *Upon presentation to the [place] [facility] 02/06/2017, he was normotensive, tachycardic, afebrile (Tm 99.4), with normal O2 sat. *Please note, previous CBC [employer] 10/18/16: WBC 12.5, H/H 12.6/39.2, nl MCV, PLT 501, BUN/Cr 7/0.9, GFR > 60, Na 133, K 3.3, nl LFTs xc alb 3.4, glob 3.0. 02/06/17: Admission labs- WBC 13.7 (72% gran/10 gran Ab), *H/H 6.1/20.7, MCV 68.3, RDW 18, *PLT 1181, PT 12.6, INR 1.20, PTT 27, admission CMP significant for glucose 145, BUN/Cr 11/0.8, GFR > 60, normal electrolytes with sodium 140, potassium 4.8, bicarbonate 22, AG 14, magnesium 1.9, calcium 8.8, albumin 3.0, globulin 3.8, TBil 0.3, alk phos 129, AST 12, ALT 19, troponin < .01, Iron 19, TIBC 338, *iron saturation 5.6%, *ferritin 6.6, B12 586, folate 9.4, * elevated CRP 6.5. 02/07/17: WBC 16.3, H/H 9.0/28.8 (*post 2u PRBC), PLT 788 02/06/17: EKG- ST @ 105, normal axis, normal interval. 02/06/17: CT ABD & PELVIS W ORAL & IV CONTRAST- 1. Circumferential wall thickening of the ascending colon with minimal adjacent fat stranding, likely representing colitis. Infectious or inflammatory etiology could be considered. Ischemic etiology is thought less likely. Unchanged prominent mesenteric lymph nodes, likely reactive. 2. No large or small bowel obstruction. No megacolon. Normal appendix. 3. New subpleural densities within the right middle and lower lobes which are partially imaged and could represent atelectasis or early infiltrates. Follow up chest imaging could be considered if clinically indicated. *As of 02/07/2017, the patient took 1 gallon of GoLYTELY. He was transfused 2 units PRBC overnight. He had diarrhea as expected from the prep. He denied any worsening of his rectal bleeding. He had chronic low back pain, but denied any additional arthralgias or rashes. He denied any chest pain. He denied any shortness of breath. His dyspnea on exertion is better after transfusion. He denied any abdominal pain. He was hemodynamically stable and afebrile. *With at least a few months of bloody diarrhea, 40 lb weight loss, low albumin, elevated CRP, colitis on CT, etc., Most likely, the patient has IBD, probably of the UC variant > Crohn's, by the distribution. Infectious etiology, C. difficile, less likely. He was using small amounts of Ibuprofen, doubt NSAID colitis. Sincerely doubt ischemia. *Please note, the patient initially stopped cigarette smoking a couple of weeks [employer], which is fairly classic for precipitating a flare of UC. He has never had a colonoscopy. There apparently is a family history of colitis in 1 of his aunts. His thrombocytosis is most likely from iron deficiency. 02/07/17: Colonoscopy to TI w/biopsies (& intraoperative stool w/u)- Impression: 1. Probable ulcerative colitis with pancolitis & and most likely, innumerable pseudopolyps. Biopsies of flat and raised areas obtained: (Specimen A- TI x 2, Specimen B- flat cecum x 2, Specimen C- raised cecum x 2, Specimen D- flat right colon 2, Specimen E- raised right colon 2, Specimen F- flat transverse colon 2, Specimen G- raised transverse colon 2, Specimen H- flat left colon x 2, Specimen I- raised left colon x 2, Specimen J- flat sigmoid 2, Specimen K- raised sigmoid 2, Specimen L- flat rectum 2, Specimen M- raised rectum x 2; probable ulcerative colitis, probable pseudopolyps, *rule out CMV, rule out dysplasia, rule out Ca). 2. Intraoperative stool workup: (*Intraoperative stool workup was obtained for stool culture, C. difficile, Shiga toxin, Giardia Ag, Crypto Ag, Vibrio, Yersinia, and fecal calprotectin). 02/07/17: *ESR 55; *HIV- negative *As of 02/08/2017, the patient was slowly improving. He still had diarrhea as expected, as steroids have not yet been started, awaiting stool workup for infectious pathogens. Mesalamine 800 mg TID was prescribed 02/07/17, along with Imodium. The diarrhea is slowing down a bit. There was scant blood per rectum. The patient noted some mild LLQ cramps. He denied any fevers or chills. He tolerated clears and was advanced to a low residue diet. The colonoscopic findings of 02/07/17 were suspicious for UC- pathology pending. 02/07/17: *intraoperative stool culture, C. difficile, Shiga toxin, Giardia Ag, Crypto Ag, Vibrio, & Yersinia- all negative. 02/07/17: *fecal calprotectin- pending. *As of 02/09/17, the patient's diarrhea is much improved, down to once a day. He has not required Imodium. His abdominal cramps are improved as well. There is no longer any rectal bleeding. He is tolerating a low-residue diet. He denied any nausea or vomiting. IV SoluMedrol 40 mg Q12h was rxd on 02/08/17, along with FeSO4 325 mg po BID. The patient remains on Mesalamine 800 mg po TID. *The patient was transferred to telemetry on 02/09/2017, as he developed sinus tachycardia with ambulation, most likely from deconditioning. 02/09/2017: EKG- ST @ 106, with ST depression laterally. *Troponin < 0.01. There was no chest pain or shortness of breath, just some mild dyspnea on exertion. He never desaturated. *The patient was seen in follow-up by the Nutrition Department , at which point, nutritional supplements were not advised, just the continuation of low-residue diet. *Although a stool for Cryptosporidium Ag was requested (& was negative), the medical house staff sent a 02/07/17: Cryptococcal Ag, which was positive, and is being worked up by ID. *This has potential implications, assuming the patient will eventually go on outpatient immunosuppressants, such as 6-MP, or biologic agents, such as Humira. I spoke with Dr. Prieto, of ID, on 02/09/17, who had advised the medical house staff to send repeat titers. 02/07/17: *HIV- negative. *SUGGEST: Low residue diet as tolerated. *Await 02/07/17: fecal calprotectin. Imodium as needed for now. Continue Mesalamine 800 mg po TID. *Await 02/07/17: biopsies of TI, colon & rectum (flat & raised areas). *I spoke to Dr. Siddiqi of [facility] postop, to send biopsies for CMV stains. *Continue IV Solumedrol 40 mg BID & if stable, consider switching to Prednisone 30 mg po BID on 02/10/17. * Follow-up with Nutrition (no supplements for now). DVT prophylaxis. Mobilize patient as tolerated. The risks and benefits of steroid therapy (i.e.- HTN/DM/ osteoporosis/AVN/glaucoma/impaired wound healing/myopathy/Fam's/fluid retention/psychosis, etc.) were discussed with the patient in great detail, and he wished to proceed. Accu-Cheks as per medical team. For probable outpatient biologics (i.e.- Humira), and/or 6-MP, after reviewing the pathology. HOWEVER, this may be problematic, with the 02/07/17: + Cryptococcal Ag & advise formal ID input. *Advise continuing care consult, as patient currently does not have insurance, and the biologic agents are extremely expensive. Regarding the numerous raised areas, assuming the biopsies are benign, consideration for repeat colonoscopy with chromoendoscopy to also assess for mucosal healing x 1 year (i.e.- 01/2018). Definitive therapy will be started after obtaining pathology results. Transfuse as needed, keeping Hgb > 7. * Continue iron repletion. *No NSAIDS. Consideration for checking Hep Bs Ag, Hep C Ab, Hep Bs Ab, Hep B core Ab, Hep A Ab, QuantiFERON TB testing & TPMT genotype/phenotype, in case biologic agents and/or 6 MP are eventually needed. Compliance with outpatient GI follow-up was stressed to the patient. The above findings and recommendations were previously discussed with the medical house staff. Further recommendations to follow, depending on clinical course. Problem List: 1. Bloody diarrhea 2. Colitis 3. Symptomatic anemia 4. Weight loss 5. Malnutrition 6. Abnormal CT of the abdomen 7. Family history of colitis Subjective Subjective: 02/07/17: *intraoperative stool culture, C. difficile, Shiga toxin, Giardia Ag, Crypto Ag, Vibrio, & Yersinia- all negative. 02/07/17: *fecal calprotectin- pending. *As of 02/09/17, the patient's diarrhea is much improved, down to once a day. He has not required Imodium. His abdominal cramps are improved as well. There is no longer any rectal bleeding. He is tolerating a low-residue diet. He denied any nausea or vomiting. IV SoluMedrol 40 mg Q12h was rxd on 02/08/17, along with FeSO4 325 mg po BID. The patient remains on Mesalamine 800 mg po TID. *The patient was transferred to telemetry on 02/09/2017, as he developed sinus tachycardia with ambulation, most likely from deconditioning. 02/09/2017: EKG- ST @ 106, with ST depression laterally. *Troponin < 0.01. There was no chest pain or shortness of breath, just some mild dyspnea on exertion. He never desaturated. *The patient was seen in follow-up by the Nutrition Department , at which point, nutritional supplements were not advised, just the continuation of low-residue diet. *Although a stool for Cryptosporidium Ag was requested (& was negative), the medical house staff sent a 02/07/17: Cryptococcal Ag, which was positive, and is being worked up by ID. *This has potential implications, assuming the patient will eventually go on outpatient immunosuppressants, such as 6-MP, or biologic agents, such as Humira. I spoke with Dr. Prieto, of ID, who advised the medical house staff to send repeat titers. 02/07/17: *HIV- negative. Review of Systems: Full 14 point review of systems otherwise noncontributory, and as above. Constitutional: Reports: malaise, weakness, unexplained weight loss (40 lb). Denies: chills, fever. EENTM: Denies: blurred vision, visual changes, ear pain, hearing changes, epistaxis, throat pain. Cardiovascular: Reports: dyspnea on exertion- better after transfusions, tachycardia post ambulation. Denies: chest pain, orthopena, peripheral edema, syncope. Respiratory: Reports: short of breath- better after transfusion. Denies: cough, hemoptysis, sputum production, stridor, wheezing. GI: Reports: see HPI, diarrhea slightly better, scant BRBPR, mild LLQ cramps Denies: constipation, nausea, vomiting. Genitourinary: Denies: discharge, dysuria, frequency, hematuria. Musculoskeletal: Reports; low back pain (chronic). Denies: joint pain, joint swelling. Skin: Denies: erythema, rash. Objective Vital Signs and I&Os Vital Signs Date Time Temp Pulse Resp B/P Pulse O2 O2 Flow FiO2 Ox Delivery Rate 02/09 1812 98.7 93 20 136/82 96 Room Air 02/09 1427 98.2 108 20 130/80 96 Room Air 02/09 0900 95 130/80 02/09 0732 99.0 108 18 126/80 96 Room Air 02/09 0030 99.2 111 20 130/84 96 Room Air Intake & Output 02/09 1600 02/09 0400 02/08 1600 02/08 0400 02/07 1600 02/07 0400 Intake Total 5884 645 3613 1500 1190 Output Total Balance 5571 333 6744 1500 1190 Intake, Blood 350 Product Intake, IV 800 1500 300 Intake, Oral 9941 489 1158 0 540 Number 1 3 Bowel Movements Patient 140 lb 140 lb Weight Physical Exam: Well-developed, slightly malnourished, thin pale male, in no apparent distress. Sclera anicteric. Conjunctiva less pale (after transfusion). Oropharynx clear. No oral thrush. No aphthous ulcers. There is no adenopathy, thyromegaly, or JVD. Neck: supple, without meningeal signs. No peripheral stigmata of inflammatory bowel disease or chronic liver disease on exam. No spiders on the anterior chest wall. No gynecomastia. No CVA tenderness. Lungs: clear to A&P. Heart exam: regular rate rhythm S1 and S2, without any murmur. Abdominal exam: normal bowel sounds, soft belly, nontender, without guarding or rebound. No mass. Clinically, without megacolon. No organomegaly. No fluid shift. No pulsatile mass. Digital rectal exam on admission reportedly revealed a few flecks of blood (not repeated at present). Extremities: without C, C, or E. No palpable cords. No palmar erythema. No Dupuytren's contractures. Tattoo upper back. Distal pulses 2+ bilaterally. DTRs 2+ bilaterally. Alert and oriented x 3. No tremor. No asterixis. No rash. No acute arthropathy. Current Medications: Current Medications Sig/Atul Start time Last Medication Dose Route Stop Time Status Admin Acetaminophen 650 MG Q6P PRN 02/06 1800 AC PO Ferrous Sulfate 325 MG BID 02/08 1000 AC 02/09 PO 0844 Loperamide HCl 2 MG Q3P PRN 02/07 0900 AC PO Melatonin 3 MG AT BEDTIME 02/08 2200 AC 02/08 PO 2144 Mesalamine 800 MG TID 02/07 1600 AC 02/09 PO 1653 Methylprednisolone 40 MG Q12 02/08 2200 AC 02/09 IV 0844 Morphine Sulfate 2 MG Q8P PRN 02/06 1800 AC 02/07 IV 2025 Patient Medication 1 ED .STK-MED ONE 02/09 1354 [facility] 02/09 1355 Results Pertinent Lab Results: Laboratory Tests 02/09 02/09 1736 0645 Chemistry Troponin I (<0.11 ng/ml) < 0.01 Hematology CBC w Diff NO MAN DIFF REQ WBC (4.8 - 10.8 /CUMM) 10.7 RBC (4.70 - 6.10 /CUMM) 3.80 L Hgb (14.0 - 18.0 G/DL) 8.7 L Hct (42 - 52 %) 28.2 L MCV (80.0 - 94.0 FL) 74.1 L MCH (27.0 - 31.0 PG) 22.8 L RDW (11.5 - 14.5 %) 21.0 H Plt Count (130 - 400 /CUMM) 711 H MPV (7.4 - 10.4 FL) 5.8 L Gran % (42.2 - 75.2 %) 90.5 H Lymphocytes % (20.5 - 51.1 %) 8.1 L Monocytes % (1.7 - 9.3 %) 1.2 L Eosinophils % (0 - 5 %) 0.1 Basophils % (0.0 - 2.0 %) 0.1 Absolute Granulocytes (1.4 - 6.5 /CUMM) 9.7 H Absolute Lymphocytes (1.2 - 3.4 /CUMM) 0.9 L Absolute Monocytes (0.10 - 0.60 /CUMM) 0.1 L Absolute Eosinophils (0.0 - 0.7 /CUMM) 0 Absolute Basophils (0.0 - 0.2 /CUMM) 0 PUBS MCHC (33.0 - 37.0 G/DL) 30.8 L 02/08 02/07 0630 1820 Hematology CBC w Diff MAN DIFF ORDERED NO MAN DIFF REQ WBC (4.8 - 10.8 /CUMM) 14.2 H 11.4 H RBC (4.70 - 6.10 /CUMM) 3.39 L 3.44 L Hgb (14.0 - 18.0 G/DL) 7.7 L 7.9 L Hct (42 - 52 %) 25.1 L 25.3 L MCV (80.0 - 94.0 FL) 74.1 L 73.4 L MCH (27.0 - 31.0 PG) 22.6 L 22.9 L RDW (11.5 - 14.5 %) 21.2 H 20.8 H Plt Count (130 - 400 /CUMM) 660 H 765 H MPV (7.4 - 10.4 FL) 5.6 L 5.6 L Gran % (42.2 - 75.2 %) 60.4 63.4 Lymphocytes % (20.5 - 51.1 %) 25.7 23.2 Monocytes % (1.7 - 9.3 %) 10.0 H 9.8 H Eosinophils % (0 - 5 %) 3.4 3.3 Basophils % (0.0 - 2.0 %) 0.5 0.3 Absolute Granulocytes (1.4 - 6.5 /CUMM) 8.6 H 7.2 H Absolute Lymphocytes (1.2 - 3.4 /CUMM) 3.6 H 2.6 Absolute Monocytes (0.10 - 0.60 /CUMM) 1.4 H 1.1 H Absolute Eosinophils (0.0 - 0.7 /CUMM) 0.5 0.4 Absolute Basophils (0.0 - 0.2 /CUMM) 0.1 0 Platelet Estimate (ADEQUATE) INCREASED Polychromasia 1+ Hypochromic-Microcytic 2+ Anisocytosis 2+ Microcytic Cells 2+ PUBS MCHC (33.0 - 37.0 G/DL) 30.6 L 31.1 L 02/07 02/07 02/07 02/07 1400 1400 1040 1040 Hematology ESR Westergren (0 - 10 MM) 55 H Other Body Source Stool Fat, Qual Cancelled Stool Calprotectin Pending Serology Cryptococcus Ag (NEGATIVE) POSITIVE HIV 1&2 Ab Western Blot (NONREACTIVE) NONREACTIVE 02/07 02/07 0852 0650 Chemistry Sodium (137 - 145 mmol/L) 140 Potassium (3.5 - 5.1 mmol/L) 3.9 Chloride (98 - 107 mmol/L) 106 Carbon Dioxide (22 - 30 mmol/L) 24 Anion Gap (5 - 16) 9 BUN (9 - 20 mg/dL) 4 L Creatinine (0.7 - 1.2 mg/dL) 0.7 Estimated GFR (>60 ml/min) > 60 BUN/Creatinine Ratio (7 - 25 %) 5.7 L Hematology CBC w Diff NO MAN DIFF REQ WBC (4.8 - 10.8 /CUMM) 10.2 RBC (4.70 - 6.10 /CUMM) 3.31 L Hgb (14.0 - 18.0 G/DL) 7.5 L Hct (42 - 52 %) 24.2 L MCV (80.0 - 94.0 FL) 73.0 L MCH (27.0 - 31.0 PG) 22.6 L RDW (11.5 - 14.5 %) 20.3 H Plt Count (130 - 400 /CUMM) 772 H MPV (7.4 - 10.4 FL) 5.7 L Gran % (42.2 - 75.2 %) 46.8 Lymphocytes % (20.5 - 51.1 %) 34.7 Monocytes % (1.7 - 9.3 %) 12.6 H Eosinophils % (0 - 5 %) 5.1 H Basophils % (0.0 - 2.0 %) 0.8 Absolute Granulocytes (1.4 - 6.5 /CUMM) 4.8 Absolute Lymphocytes (1.2 - 3.4 /CUMM) 3.5 H Absolute Monocytes (0.10 - 0.60 /CUMM) 1.3 H Absolute Eosinophils (0.0 - 0.7 /CUMM) 0.5 Absolute Basophils (0.0 - 0.2 /CUMM) 0.1 PUBS MCHC (33.0 - 37.0 G/DL) 31.0 L Miscellaneous Ref Lab Test Result Pending 02/07 02/06 02/06 0000 2100 2014 Chemistry Lactic Acid (0.7 - 2.1 mmol/L) 1.8 Cancelled Hematology CBC w Diff NO MAN DIFF REQ Cancelled WBC (4.8 - 10.8 /CUMM) 16.3 H Cancelled RBC (4.70 - 6.10 /CUMM) 3.92 L Cancelled Hgb (14.0 - 18.0 G/DL) 9.0 L Cancelled Hct (42 - 52 %) 28.8 L Cancelled MCV (80.0 - 94.0 FL) 73.6 L Cancelled MCH (27.0 - 31.0 PG) 22.9 L Cancelled RDW (11.5 - 14.5 %) 21.2 H Cancelled Plt Count (130 - 400 /CUMM) 788 H Cancelled MPV (7.4 - 10.4 FL) 6.1 L Cancelled Gran % (42.2 - 75.2 %) 67.3 Lymphocytes % (20.5 - 51.1 %) 21.1 Monocytes % (1.7 - 9.3 %) 8.4 Eosinophils % (0 - 5 %) 2.5 Basophils % (0.0 - 2.0 %) 0.7 Absolute Granulocytes (1.4 - 6.5 /CUMM) 11.0 H Absolute Lymphocytes (1.2 - 3.4 /CUMM) 3.4 Absolute Monocytes (0.10 - 0.60 /CUMM) 1.4 H Absolute Eosinophils (0.0 - 0.7 /CUMM) 0.4 Absolute Basophils (0.0 - 0.2 /CUMM) 0.1 PUBS MCHC (33.0 - 37.0 G/DL) 31.1 L Cancelled Imaging/Other Studies: 02/06/17: EKG- ST @ 105, normal axis, normal interval. 02/06/17: CT ABD & PELVIS W ORAL & IV CONTRAST- 1. Circumferential wall thickening of the ascending colon with minimal adjacent fat stranding, likely representing colitis. Infectious or inflammatory etiology could be considered. Ischemic etiology is thought less likely. Unchanged prominent mesenteric lymph nodes, likely reactive. 2. No large or small bowel obstruction. No megacolon. Normal appendix. 3. New subpleural densities within the right middle and lower lobes which are partially imaged and could represent atelectasis or early infiltrates. Follow up chest imaging could be considered if clinically indicated. 02/07/17: Colonoscopy to TI w/biopsies (& intraoperative stool w/u)- Impression: 1. Probable ulcerative colitis with pancolitis & and most likely, innumerable pseudopolyps. Biopsies of flat and raised areas obtained: (Specimen A- TI x 2, Specimen B- flat cecum x 2, Specimen C- raised cecum x 2, Specimen D- flat right colon 2, Specimen E- raised right colon 2, Specimen F- flat transverse colon 2, Specimen G- raised transverse colon 2, Specimen H- flat left colon x 2, Specimen I- raised left colon x 2, Specimen J- flat sigmoid 2, Specimen K- raised sigmoid 2, Specimen L- flat rectum 2, Specimen M- raised rectum x 2; probable ulcerative colitis, probable pseudopolyps, *rule out CMV, rule out dysplasia, rule out Ca). 2. Intraoperative stool workup: (*Intraoperative stool workup obtained for stool culture, C. difficile, Shiga toxin, Giardia Ag, Crypto Ag, Vibrio, & Yersinia- *all negative; 02/07/17: *fecal calprotectin- pending). 02/09/17: EKG- ST @ 106, with ST depression laterally.
[2017-02-09 22:00] VITALS: BP 128/82
[2017-02-10 08:20] VITALS: BP 136/78
[2017-02-10 08:26] LABS: ABSOLUTE BASOPHIL COUNT 0 /CUMM (0.0-0.2); ABSOLUTE EOSINOPHIL COUNT 0 /CUMM (0.0-0.7); ABSOLUTE GRANULOCYTE CT 19.6 /CUMM (1.4-6.5); ABSOLUTE LYMPH COUNT 1.8 /CUMM (1.2-3.4); ABSOLUTE MONOCYTE COUNT 0.8 /CUMM (0.10-0.60); BASOPHIL % 0.1 % (0.0-2.0); EOSINOPHIL % 0.1 % (0-5); GRANULOCYTE % 88.1 % (42.2-75.2); HEMATOCRIT 30.6 % (42-52); MEAN CORPUSCULAR HGB 23.2 PG (27.0-31.0); MEAN CORPUSCULAR HGB CONC 30.6 G/DL (33.0-37.0); MEAN PLATELET VOLUME 6.1 FL (7.4-10.4); PLATELET COUNT 850 /CUMM (130-400); RBC DISTRIBUTION WIDTH 22.1 % (11.5-14.5); RED BLOOD CELL CT 4.02 /CUMM (4.70-6.10)
[2017-02-10 08:46] LABS: WHITE BLOOD CELL COUNT 22.2 /CUMM (4.8-10.8)
--- NOTE | 2017-02-10 08:57 | PN- Housestaff ---
ISHMAELROCKSAVANNAHALEKSANDER 02/10/17 0856: Subjective Follow-up For: Bleeding per rectum Ulcerative colitis Tachycardia Complaints: no complaints Tele-Events Since Last Visit: Normal sinus rhythm, heart rate 69-98, slightly tall T waves. Subjective: Mr. Christie was comfortable this morning. Did not have any complaints. Did not have any medications overnight. No chest pain, shortness of breath was noted. Complaint of abdominal discomfort, N1 bowel movement [address] Espinoza to evaluate the patient, as the patient was transferred to telemetry last night with a chief concern of ST depression found on EKG/ tachycardia. Review of Systems Constitutional: Reports: see HPI. Objective Last 24 Hrs of Vital Signs/I&O Vital Signs Date Time Temp Pulse Resp B/P Pulse O2 O2 Flow FiO2 Ox Delivery Rate 02/10 0820 97.8 80 16 136/78 97 Room Air 02/09 2200 98.4 98 16 128/82 98 Room Air 02/09 1812 98.7 93 20 136/82 96 Room Air 02/09 1427 98.2 108 20 130/80 96 Room Air 02/09 0900 95 130/80 Intake & Output 02/10 1600 02/10 0800 02/10 0000 Intake Total 0 800 Output Total Balance 0 800 Intake, IV 0 0 Intake, Oral 0 800 Number 0 0 Bowel Movements Physical Exam General Appearance: No Acute Distress Other Physical Findings: General Exam: AAOx3, No acute distress, Skin: No rashes, no breakdown HEENT: PERRLA, EOMI Neck: Supple, No JVD No cervical lymphadenopathy CVS: Reg Rate, Normal S1,S2, No MGR Resp: Normal air entry, no ronchi/rales Abdomen: Soft, No tenderness, Normal Bowel Sounds Neuro: Normal Speech, Strength 5/5 b/l x 4 extremities, Sensation intact, CN III -XII NL, Reflexes 2+ Extremities: No cyanosis, pedal edema Current Medications: Current Medications Sig/Atul Start time Last Medication Dose Route Stop Time Status Admin Acetaminophen 650 MG Q6P PRN 02/06 1800 AC PO Ferrous Sulfate 325 MG BID 02/08 1000 AC 02/10 PO 0832 Loperamide HCl 2 MG Q3P PRN 02/07 0900 AC PO Melatonin 3 MG AT BEDTIME 02/08 2200 AC 02/09 PO 2115 Mesalamine 800 MG TID 02/07 1600 AC 02/10 PO 0832 Methylprednisolone 40 MG Q12 02/08 2200 AC 02/10 IV 0832 Morphine Sulfate 2 MG Q8P PRN 02/06 1800 AC 02/09 IV 2115 Patient Medication 1 ED .STK-MED ONE 02/09 1354 [place] Teaching ED 02/09 1355 Last 24 Hrs of Lab/Shawn Results Last 24 Hrs of Labs/Mics: Laboratory Tests 02/10/17 0720: Anion Gap 6, Estimated GFR > 60, BUN/Creatinine Ratio 12.5, Magnesium 2.6 H, Troponin I Pending, TSH &T3 &Free T4 Intrp Pending, CBC w Diff Pending, WBC Pending, RBC Pending, Hgb Pending, Hct Pending, MCV Pending, MCH Pending, RDW Pending, Plt Count Pending, MPV Pending, Gran % Pending, Lymphocytes % Pending, Monocytes % Pending, Eosinophils % Pending, Basophils % Pending, Absolute Granulocytes Pending, Absolute Lymphocytes Pending, Absolute Monocytes Pending, Absolute Eosinophils Pending, Absolute Basophils Pending, PUBS MCHC Pending 02/09/17 2250: Troponin I < 0.01 02/09/17 1736: Troponin I < 0.01 Assessment/Plan Assessment: Mr Christie is a 31-year-old man who is being evaluated for chief concern of bleeding per rectum, diarrhea, weight loss 5 months. Has been evaluated by the GI team in the past, but has lost to follow-up. Recent radiological findings were suggestive of circumferential colonic thickening, after which he underwent colonoscopy which was suggestive of ulcerative colitis. Biopsies taken, pathology pending. It At the time of admission, WBC 13.7, hemoglobin 6.1 (12.5 baseline), MCV 68.3, platelets 1181 (likely iron deficiency anemia), normal electrolytes sodium 140, potassium 4.8, magnesium 1.9, albumin 3.0, T bilirubin 0.3, alkaline phosphatase 129. AST 12, ALT 19. Iron 19, TIBC 338, ferritin 6.6, CRP 6.5. Radiological findings-related CT abdomen and pelvis-circumferential wall thickening of ascending colon with minimal practicing fat stranding likely representing colitis. Admission diagnosis: #1 anemia #2 ulcerative colitis #3 tachycardia Below is the problem list and plan: #1 anemia-microcytic, MCV, iron, ferritin low. Likely chronic blood loss. 2 PRBCs have been transfused so far. Continue iron sulfate. No NSAIDs. Continue to monitor closely. #2 ulcerative colitis- ulcerative colitis flare. Start the patient on mesalamine 800 mg by mouth 3 times a day, and prednisone intravenous. Change to by mouth prednisone aspirin GI recommendation. Await biopsy samples from recent colonoscopy. Await fecal calprotectin. Dr. Mccartney in advising. The patient likely to be started on 6-MP or Humira. Check HIV, TPMP passing as an outpatient. Stool cryptosporidium negative. Cryptococcus antigen was sent by error. Repeat Cryptococcus antigen was negative (discussed with Jose Prieto MD). #3 tachycardia-sinus tachycardia. Likely from anemia. Nonspecific ST changes were seen. Echocardiogram to be obtained. Since the patient has a family history of HI, need to check for regular risk factors including diabetes, lipid panel etc. #4-diet low residue diet. Mild malnutrition, nutrition consult. Problem List: 1. Malnutrition Pain Ratin Pain Location: None Pain Goal: Pain 4 or less Pain Plan: Tylenol when necessary Tomorrow's Labs & Rationales: CBC to monitor for leukocytosis SJ FLOYD MD 02/10/17 1131: Attending MD Review Statement Attending Statement Attending MD Statement: examined this patient, discuss w/resident/PA/TEMPLER HEAD, agreed w/resident/PA/TEMPLER HEAD, reviewed EMR data (avail) Attending Assessment/Plan: 31M no PMH admitted with symptomatic anemia with Hgb 6.1 and fatigue, dysnea on exertion, and palpitations on exertion. Transfused with stable Hgb at this point. Etiology is likely ulcerative colitis. Patient feels well and denies pain. 1 BM overnight, more formed than in past, with melena per patient. Vitals stable with normal HR when lying down, sinus tachycardia when standing. EKG from overnight reveals sinus tachycardia with minimal ST depressions in lateral leads, but not significant). 1. Symptomatic anemia 2. Sinus tachycardia 3. Ulcerative colitis 4. Acute EKG changes Plan - Continue on telemetry - Follow GI and cardiology recommendations - Continue Prednisone and Mesalamine - Daily CBC. Do not need to check BEP or other labs - Obtain echocardiogram - TSH normal - DVT PPx
--- NOTE | 2017-02-10 09:13 | NUR ---
NOTIFIED BY MANAGER PEDIATRIC, HEART RATE INCREASED TO 120'S. PATIENT REPORTED GOT UP TO MOVE PRIVACY CURTAIN. NO SYMPTOMS AT THIS TIME. NOTIFIED HEAD SILVERMAN DR [place]DROP. WILL CONTINUE TO MONITOR.
[2017-02-10 14:54] VITALS: BP 130/70
[2017-02-10 16:28] VITALS: BP 116/68
--- NOTE | 2017-02-10 17:08 | PN- Gastroenterology ---
Assessment/Plan Assessment/Recommendations: (*Please refer to covering GI consultation of 02/06/2017, per Dr. Turcios. The patient was seen by myself initially on 02/07/17, in the presence of his girlfriend, Laura, as per patient request). 31-year-old male, with intermittent bloody diarrhea since 2015. The patient lost 40 pounds over the past 4 months. He denied any rashes or arthralgias, except for some mild low back pain. There is a questionable family history of "colitis" in the patient's aunt. The patient rarely takes Ibuprofen. He denied any recent antibiotics, travel, or food ingestion, except for rare sushi. Upon further questioning, he may have had bloody diarrhea in his early 20s. Denied any abdominal pain. The diarrhea was every 1-2 hours and secretory in nature, with nocturnal stools. He denied any upper GI symptoms, hematemesis, or melena. The patient was seen for the above in the [facility] *10/18/2016, at which point, CT abdomen and pelvis with IV contrast revealed diffuse mild bowel wall thickening of the colon , from the rectum through the hepatic flexure, with sparing of the right colon and cecum. There was minimal pericolonic stranding most notable at the mid descending colon. Reticula. The appendix was normal, as was the small bowel. Unfortunately, the patient did not follow up with any rn clinical documentation specialist since then, despite being instructesd to do so by the ER, due to "lack of insurance". There is no family history of colon cancer. The patient was admitted to [facility] 02/06/2017 with the above painless bloody diarrhea, microcytic anemia, and weight loss. He was seen in covering GI consultation by Dr. Turcios that day, and a CAT AP scan was ordered. He had thrombocytosis, which most likely is reactive in nature from probable iron deficiency. He received a gallon of GoLYTELY, in anticipation of colonoscopy later today. *The patient previously drank alcohol heavily, stopping 2015. He stopped cigarette smoking a little over 2 weeks prior to admission. He denied any illicit drug use, although remote urine toxicologies were positive for cannabis. *For some reason, no stool workup has been ordered for infectious pathogens, C. difficile, etc, nor any ESR. *The patient received 2u PRBC overnight on 02/06/17. *Upon presentation to the [facility] 02/06/2017, he was normotensive, tachycardic, afebrile (Tm 99.4), with normal O2 sat. *Please note, previous CBC HOB GRINDER 10/18/16: WBC 12.5, H/H 12.6/39.2, nl MCV, PLT 501, BUN/Cr 7/0.9, GFR > 60, Na 133, K 3.3, nl LFTs xc alb 3.4, glob 3.0. 02/06/17: Admission labs- WBC 13.7 (72% gran/10 gran Ab), *H/H 6.1/20.7, MCV 68.3, RDW 18, *PLT 1181, PT 12.6, INR 1.20, PTT 27, admission CMP significant for glucose 145, BUN/Cr 11/0.8, GFR > 60, normal electrolytes with sodium 140, potassium 4.8, bicarbonate 22, AG 14, magnesium 1.9, calcium 8.8, albumin 3.0, globulin 3.8, TBil 0.3, alk phos 129, AST 12, ALT 19, troponin < .01, Iron 19, TIBC 338, *iron saturation 5.6%, *ferritin 6.6, B12 586, folate 9.4, * elevated CRP 6.5. 02/07/17: WBC 16.3, H/H 9.0/28.8 (*post 2u PRBC), PLT 788 02/06/17: EKG- ST @ 105, normal axis, normal interval. 02/06/17: CT ABD & PELVIS W ORAL & IV CONTRAST- 1. Circumferential wall thickening of the ascending colon with minimal adjacent fat stranding, likely representing colitis. Infectious or inflammatory etiology could be considered. Ischemic etiology is thought less likely. Unchanged prominent mesenteric lymph nodes, likely reactive. 2. No large or small bowel obstruction. No megacolon. Normal appendix. 3. New subpleural densities within the right middle and lower lobes which are partially imaged and could represent atelectasis or early infiltrates. Follow up chest imaging could be considered if clinically indicated. *As of 02/07/2017, the patient took 1 gallon of GoLYTELY. He was transfused 2 units PRBC overnight. He had diarrhea as expected from the prep. He denied any worsening of his rectal bleeding. He had chronic low back pain, but denied any additional arthralgias or rashes. He denied any chest pain. He denied any shortness of breath. His dyspnea on exertion is better after transfusion. He denied any abdominal pain. He was hemodynamically stable and afebrile. *With at least a few months of bloody diarrhea, 40 lb weight loss, low albumin, elevated CRP, colitis on CT, etc., Most likely, the patient has IBD, probably of the UC variant > Crohn's, by the distribution. Infectious etiology, C. difficile, less likely. He was using small amounts of Ibuprofen, doubt NSAID colitis. Sincerely doubt ischemia. *Please note, the patient initially stopped cigarette smoking a couple of weeks HOB GRINDER, which is fairly classic for precipitating a flare of UC. He has never had a colonoscopy. There apparently is a family history of colitis in 1 of his aunts. His thrombocytosis is most likely from iron deficiency. 02/07/17: Colonoscopy to TI w/biopsies (& intraoperative stool w/u)- Impression: 1. Probable ulcerative colitis with pancolitis & and most likely, innumerable pseudopolyps. Biopsies of flat and raised areas obtained: (Specimen A- TI x 2, Specimen B- flat cecum x 2, Specimen C- raised cecum x 2, Specimen D- flat right colon 2, Specimen E- raised right colon 2, Specimen F- flat transverse colon 2, Specimen G- raised transverse colon 2, Specimen H- flat left colon x 2, Specimen I- raised left colon x 2, Specimen J- flat sigmoid 2, Specimen K- raised sigmoid 2, Specimen L- flat rectum 2, Specimen M- raised rectum x 2; probable ulcerative colitis, probable pseudopolyps, *rule out CMV, rule out dysplasia, rule out Ca). 2. Intraoperative stool workup: (*Intraoperative stool workup was obtained for stool culture, C. difficile, Shiga toxin, Giardia Ag, Crypto Ag, Vibrio, Yersinia, and fecal calprotectin). 02/07/17: *ESR 55; *HIV- negative *As of 02/08/2017, the patient was slowly improving. He still had diarrhea as expected, as steroids have not yet been started, awaiting stool workup for infectious pathogens. Mesalamine 800 mg TID was prescribed 02/07/17, along with Imodium. The diarrhea is slowing down a bit. There was scant blood per rectum. The patient noted some mild LLQ cramps. He denied any fevers or chills. He tolerated clears and was advanced to a low residue diet. The colonoscopic findings of 02/07/17 were suspicious for UC- pathology pending. 02/07/17: *intraoperative stool culture, C. difficile, Shiga toxin, Giardia Ag, Crypto Ag, Vibrio, & Yersinia- all negative. 02/07/17: *fecal calprotectin- pending. *As of 02/09/17, the patient's diarrhea is much improved, down to once a day. He has not required Imodium. His abdominal cramps are improved as well. There is no longer any rectal bleeding. He is tolerating a low-residue diet. He denied any nausea or vomiting. IV SoluMedrol 40 mg Q12h was rxd on 02/08/17, along with FeSO4 325 mg po BID. The patient remains on Mesalamine 800 mg po TID. *The patient was transferred to telemetry on 02/09/2017, as he developed sinus tachycardia with ambulation, most likely from deconditioning. 02/09/2017: EKG- ST @ 106, with ST depression laterally. *Troponin < 0.01. There was no chest pain or shortness of breath, just some mild dyspnea on exertion. He never desaturated. *The patient was seen in follow-up by the Nutrition Department , at which point, nutritional supplements were not advised, just the continuation of low-residue diet. *Although a stool for Cryptosporidium Ag was requested (& was negative), the medical house staff sent a 02/07/17: Cryptococcal Ag, which was positive, and is being worked up by ID. *This has potential implications, assuming the patient will eventually go on outpatient immunosuppressants, such as 6-MP, or biologic agents, such as Humira. I spoke with Dr. Prieto, of ID, on 02/09/17, who had advised the medical house staff to send repeat titers. 02/07/17: *HIV- negative. 02/07/17: *Cryptococcal Ag- negative (sent out to [employer]) *As of 02/10/17, the patient's colitis symptoms were much improved. He had a semi-formed BM this a.m. His abdominal cramps were much better and he no longer had diarrhea. There was no rectal bleeding. The patient noted dark stools, but is on FeSO4 325 mg po BID. He denied any fevers or chills. He tolerated a low residue diet, and was ambulating, without any CP or SOB. He had intermittent sinus tachycardia. *Cryptococcal sendout- negative, as above (discussed with Dr. Prieto). *The patient was seen by Dr. Espinoza of cardiology 02/10/17, & his sinus tach with nonspecific minor upsloping ST depression was not felt to be worrisome, although he did advise an echocardiogram. He had leukocytosis attributed to steroids.*IV SoluMedrol 40 mg BID was just switched to Prednisone 30 mg po BID. *SUGGEST: Low residue diet as tolerated. *Await 02/07/17: fecal calprotectin. Imodium as needed for now. *Continue Mesalamine 800 mg po TID. *Await 02/07/17: biopsies of TI, colon & rectum (flat & raised areas). *I spoke to Dr. Siddiqi of [facility] postop, to send biopsies for CMV stains. *Prednisone 30 mg po BID. * Follow-up with Nutrition (no supplements for now). DVT prophylaxis. Mobilize patient as tolerated. The risks and benefits of steroid therapy (i.e.- HTN/DM/ osteoporosis/AVN/glaucoma/impaired wound healing/myopathy/Fam's/fluid retention/psychosis, etc.) were discussed with the patient in great detail, and he wished to proceed. Accu-Cheks as per medical team. For probable outpatient biologics (i.e.- Humira), and/or 6-MP, after reviewing the pathology. (02/07/17: Cryptococcal Ag- negative). *Advise continuing care consult, as patient currently does not have insurance, and the biologic agents are extremely expensive. Regarding the numerous raised areas, assuming the biopsies are benign, consideration for repeat colonoscopy with chromoendoscopy to also assess for mucosal healing x 1 year (i.e.- 01/2018). Definitive therapy will be started after obtaining pathology results. Transfuse as needed, keeping Hgb > 7. *Continue iron repletion. *No NSAIDS. Consideration for checking Hep Bs Ag, Hep C Ab, Hep Bs Ab, Hep B core Ab, Hep A Ab, QuantiFERON TB testing & TPMT genotype/phenotype, in case biologic agents and/or 6 MP are eventually needed. Compliance with outpatient GI follow-up was stressed to the patient. The above findings and recommendations were discussed with the medical house staff. *If stable, consideration for D/C fron GI perspective on 02/11/17, & outpatient GI followup within 2 weeks. Problem List: 1. Bloody diarrhea 2. Colitis 3. Symptomatic anemia 4. Weight loss 5. Malnutrition 6. Abnormal CT of the abdomen 7. Family history of colitis Subjective Subjective: 02/07/17: *Cryptococcal Ag- negative (sent out to [employer]) *As of 02/10/17, the patient's colitis symptoms were much improved. He had a semi-formed BM this a.m. His abdominal cramps were much better and he no longer had diarrhea. There was no rectal bleeding. The patient noted dark stools, but is on FeSO4 325 mg po BID. He denied any fevers or chills. He tolerated a low residue diet, and was ambulating, without any CP or SOB. He had intermittent sinus tachycardia. *Cryptococcal sendout- negative, as above (discussed with Dr. Prieto). *The patient was seen by Dr. Espinoza of cardiology 02/10/17, & his sinus tach with nonspecific minor upsloping ST depression was not felt to be worrisome, although he did advise an echocardiogram. He had leukocytosis attributed to steroids.*IV SoluMedrol 40 mg BID was just switched to Prednisone 30 mg po BID. Review of Systems: Full 14 point review of systems otherwise noncontributory, and as above. Constitutional: Reports: malaise, weakness, unexplained weight loss (40 lb). Denies: chills, fever. EENTM: Denies: blurred vision, visual changes, ear pain, hearing changes, epistaxis, throat pain. Cardiovascular: Reports: dyspnea on exertion- better after transfusions, tachycardia post ambulation. Denies: chest pain, orthopena, peripheral edema, syncope. Respiratory: Reports: short of breath- better after transfusion. Denies: cough, hemoptysis, sputum production, stridor, wheezing. GI: Reports: see HPI, diarrhea slightly better, scant BRBPR, mild LLQ cramps- better Denies: constipation, nausea, vomiting. Genitourinary: Denies: discharge, dysuria, frequency, hematuria. Musculoskeletal: Reports; low back pain (chronic). Denies: joint pain, joint swelling. Skin: Denies: erythema, rash. Objective Vital Signs and I&Os Vital Signs Date Time Temp Pulse Resp B/P Pulse O2 O2 Flow FiO2 Ox Delivery Rate 02/10 1628 98.0 85 20 116/68 97 Room Air 02/10 1454 132 130/70 02/10 0820 97.8 80 16 136/78 97 Room Air 02/09 2200 98.4 98 16 128/82 98 Room Air 02/09 1812 98.7 93 20 136/82 96 Room Air Intake & Output 02/10 1600 02/10 0400 02/09 1600 02/09 0400 02/08 1600 02/08 0400 Intake Total 9647 893 5941 500 2200 Output Total Balance 1654 327 7554 500 2200 Intake, IV 0 0 800 Intake, Oral 4140 105 3413 500 1400 Number 0 0 1 Bowel Movements Patient 140 lb Weight Physical Exam: Well-developed, slightly malnourished, thin pale male, in no apparent distress. Sclera anicteric. Conjunctiva less pale (after transfusion). Oropharynx clear. No oral thrush. No aphthous ulcers. There is no adenopathy, thyromegaly, or JVD. Neck: supple, without meningeal signs. No peripheral stigmata of inflammatory bowel disease or chronic liver disease on exam. No spiders on the anterior chest wall. No gynecomastia. No CVA tenderness. Lungs: clear to A&P. Heart exam: regular rate rhythm S1 and S2, without any murmur. Abdominal exam: normal bowel sounds, soft belly, nontender, without guarding or rebound. No mass. Clinically, without megacolon. No organomegaly. No fluid shift. No pulsatile mass. Digital rectal exam on admission reportedly revealed a few flecks of blood (not repeated at present). Extremities: without C, C, or E. No palpable cords. No palmar erythema. No Dupuytren's contractures. Tattoo upper back. Distal pulses 2+ bilaterally. DTRs 2+ bilaterally. Alert and oriented x 3. No tremor. No asterixis. No rash. No acute arthropathy. Current Medications: Current Medications Sig/Atul Start time Last Medication Dose Route Stop Time Status Admin Acetaminophen 650 MG Q6P PRN 02/06 1800 AC PO Ferrous Sulfate 325 MG BID 02/08 1000 AC 02/10 PO 0832 Loperamide HCl 2 MG Q3P PRN 02/07 0900 AC PO Melatonin 3 MG AT BEDTIME 02/08 2200 AC 02/09 PO 211 Mesalamine 800 MG TID 02/07 1600 AC 02/10 PO 1611 Methylprednisolone 40 MG Q12 02/08 2200 DC 02/10 IV 0832 Morphine Sulfate 2 MG Q8P PRN 02/06 1800 AC 02/09 IV 211 Patient Medication 1 ED .STK-MED ONE 02/10 1352 DC Teaching ED 02/10 1353 Prednisone 30 MG BID 02/10 2200 AC PO Results Pertinent Lab Results: Laboratory Tests 02/10 02/09 02/09 0720 2250 1736 Chemistry Sodium (137 - 145 mmol/L) 138 Potassium (3.5 - 5.1 mmol/L) 5.1 Chloride (98 - 107 mmol/L) 102 Carbon Dioxide (22 - 30 mmol/L) 29 Anion Gap (5 - 16) 6 BUN (9 - 20 mg/dL) 10 Creatinine (0.7 - 1.2 mg/dL) 0.8 Estimated GFR (>60 ml/min) > 60 BUN/Creatinine Ratio (7 - 25 %) 12.5 Magnesium (1.6 - 2.3 mg/dL) 2.6 H Troponin I (<0.11 ng/ml) < 0.01 < 0.01 < 0.01 TSH &T3 &Free T4 Intrp (0.27 - 4.20 uIU/mL) 0.909 Hematology CBC w Diff MAN DIFF ORDERED WBC (4.8 - 10.8 /CUMM) 22.2 H RBC (4.70 - 6.10 /CUMM) 4.02 L Hgb (14.0 - 18.0 G/DL) 9.4 L Hct (42 - 52 %) 30.6 L MCV (80.0 - 94.0 FL) 76.0 L MCH (27.0 - 31.0 PG) 23.2 L RDW (11.5 - 14.5 %) 22.1 H Plt Count (130 - 400 /CUMM) 850 H MPV (7.4 - 10.4 FL) 6.1 L Gran % (42.2 - 75.2 %) 88.1 H Lymphocytes % (20.5 - 51.1 %) 8.1 L Monocytes % (1.7 - 9.3 %) 3.6 Eosinophils % (0 - 5 %) 0.1 Basophils % (0.0 - 2.0 %) 0.1 Absolute Granulocytes (1.4 - 6.5 /CUMM) 19.6 H Absolute Lymphocytes (1.2 - 3.4 /CUMM) 1.8 Absolute Monocytes (0.10 - 0.60 /CUMM) 0.8 H Absolute Eosinophils (0.0 - 0.7 /CUMM) 0 Absolute Basophils (0.0 - 0.2 /CUMM) 0 Platelet Estimate (ADEQUATE) INCREASED Polychromasia 1+ Hypochromic-Microcytic 1+ Anisocytosis 2+ Microcytic Cells 1+ PUBS MCHC (33.0 - 37.0 G/DL) 30.6 L 02/09 02/08 0645 0630 Hematology CBC w Diff NO MAN DIFF REQ MAN DIFF ORDERED WBC (4.8 - 10.8 /CUMM) 10.7 14.2 H RBC (4.70 - 6.10 /CUMM) 3.80 L 3.39 L Hgb (14.0 - 18.0 G/DL) 8.7 L 7.7 L Hct (42 - 52 %) 28.2 L 25.1 L MCV (80.0 - 94.0 FL) 74.1 L 74.1 L MCH (27.0 - 31.0 PG) 22.8 L 22.6 L RDW (11.5 - 14.5 %) 21.0 H 21.2 H Plt Count (130 - 400 /CUMM) 711 H 660 H MPV (7.4 - 10.4 FL) 5.8 L 5.6 L Gran % (42.2 - 75.2 %) 90.5 H 60.4 Lymphocytes % (20.5 - 51.1 %) 8.1 L 25.7 Monocytes % (1.7 - 9.3 %) 1.2 L 10.0 H Eosinophils % (0 - 5 %) 0.1 3.4 Basophils % (0.0 - 2.0 %) 0.1 0.5 Absolute Granulocytes (1.4 - 6.5 /CUMM) 9.7 H 8.6 H Absolute Lymphocytes (1.2 - 3.4 /CUMM) 0.9 L 3.6 H Absolute Monocytes (0.10 - 0.60 /CUMM) 0.1 L 1.4 H Absolute Eosinophils (0.0 - 0.7 /CUMM) 0 0.5 Absolute Basophils (0.0 - 0.2 /CUMM) 0 0.1 Platelet Estimate (ADEQUATE) INCREASED Polychromasia 1+ Hypochromic-Microcytic 2+ Anisocytosis 2+ Microcytic Cells 2+ PUBS MCHC (33.0 - 37.0 G/DL) 30.8 L 30.6 L 02/07 1820 Hematology CBC w Diff NO MAN DIFF REQ WBC (4.8 - 10.8 /CUMM) 11.4 H RBC (4.70 - 6.10 /CUMM) 3.44 L Hgb (14.0 - 18.0 G/DL) 7.9 L Hct (42 - 52 %) 25.3 L MCV (80.0 - 94.0 FL) 73.4 L MCH (27.0 - 31.0 PG) 22.9 L RDW (11.5 - 14.5 %) 20.8 H Plt Count (130 - 400 /CUMM) 765 H MPV (7.4 - 10.4 FL) 5.6 L Gran % (42.2 - 75.2 %) 63.4 Lymphocytes % (20.5 - 51.1 %) 23.2 Monocytes % (1.7 - 9.3 %) 9.8 H Eosinophils % (0 - 5 %) 3.3 Basophils % (0.0 - 2.0 %) 0.3 Absolute Granulocytes (1.4 - 6.5 /CUMM) 7.2 H Absolute Lymphocytes (1.2 - 3.4 /CUMM) 2.6 Absolute Monocytes (0.10 - 0.60 /CUMM) 1.1 H Absolute Eosinophils (0.0 - 0.7 /CUMM) 0.4 Absolute Basophils (0.0 - 0.2 /CUMM) 0 PUBS MCHC (33.0 - 37.0 G/DL) 31.1 L Imaging/Other Studies: 02/06/17: EKG- ST @ 105, normal axis, normal interval. 02/06/17: CT ABD & PELVIS W ORAL & IV CONTRAST- 1. Circumferential wall thickening of the ascending colon with minimal adjacent fat stranding, likely representing colitis. Infectious or inflammatory etiology could be considered. Ischemic etiology is thought less likely. Unchanged prominent mesenteric lymph nodes, likely reactive. 2. No large or small bowel obstruction. No megacolon. Normal appendix. 3. New subpleural densities within the right middle and lower lobes which are partially imaged and could represent atelectasis or early infiltrates. Follow up chest imaging could be considered if clinically indicated. 02/07/17: Colonoscopy to TI w/biopsies (& intraoperative stool w/u)- Impression: 1. Probable ulcerative colitis with pancolitis & and most likely, innumerable pseudopolyps. Biopsies of flat and raised areas obtained: (Specimen A- TI x 2, Specimen B- flat cecum x 2, Specimen C- raised cecum x 2, Specimen D- flat right colon 2, Specimen E- raised right colon 2, Specimen F- flat transverse colon 2, Specimen G- raised transverse colon 2, Specimen H- flat left colon x 2, Specimen I- raised left colon x 2, Specimen J- flat sigmoid 2, Specimen K- raised sigmoid 2, Specimen L- flat rectum 2, Specimen M- raised rectum x 2; probable ulcerative colitis, probable pseudopolyps, *rule out CMV, rule out dysplasia, rule out Ca). 2. Intraoperative stool workup: (*Intraoperative stool workup obtained for stool culture, C. difficile, Shiga toxin, Giardia Ag, Crypto Ag, Vibrio, & Yersinia- *all negative; 02/07/17: *fecal calprotectin- pending). 02/09/17: EKG- ST @ 106, with ST depression laterally.
--- NOTE | 2017-02-10 17:08 | Cons- Cardiology ---
General Information and HPI Consulting Request Date of Consult: 02/10/17 Requested By: MANUEL CALLOWAY MD Reason for Consult: Abnormal electrocardiogram. Source of Information: patient, old records Exam Limitations: no limitations History of Present Illness: Mr. 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 Mr. Christie began experiencing episodes of BRBPR, that he attributed to heavy alcohol intake, at around age 23 years. Episodes would occur during periods of heavy drinking once every three years and would typically resolve within a week of him discontinuing his use of alcohol. He thought the episodes were the result of "an ulcer". The situation changed in October 2016 when an episode was associated with abdominal pain that led to a ED evaluation and the discovery of "colitis" by a CT scan of the abdomen/pelvis. He was discharged to home with recommendations for an outpatient GI evaluation which never occurred secondary to lack of insurance and monetary constraints. Allergies/Medications Allergies: Coded Allergies: NO KNOWN ALLERGIES (10/18/16) Home Med List: Acetaminophen (Tylenol Extra Strength) 500 MG TABLET 2 TAB PO PRN PAIN ( Reported) Multivitamin (Multi-Day Vitamins) 1 EACH TABLET 1 TAB PO DAILY SUPPLEMENT ( Reported) Review of Systems Review of Systems: A 14 point system review was obtained and was noncontributory, other than as above. Past History Travel History Traveled to [place] past 21 day No Medical History Blood Transfusion Hx: Yes Neurological: NONE EENT: NONE Cardiovascular: NONE Respiratory: NONE Gastrointestinal: colitis, GI ULCER Hepatic: NONE Renal: NONE Musculoskeletal: NONE Psychiatric: ETOH USE Endocrine: NONE Blood Disorders: NONE Cancer(s): NONE Surgical History Surgical History: 1 Family History Relations & Conditions If Any: FATHER FH: early coronary artery disease FH: hypercholesterolemia FH: hypertension Relation not specified for: colitis DVT Psychosocial History Where Do You Live? Home Smoking Status: Former Smoker ETOH Use: heavy use, QUIT DRINKING A COUPLE MONTHS AGO Illicit Drug Use: denies illicit drug use Exam & Diagnostic Data Vital Signs and I&O Vital Signs Date Time Temp Pulse Resp B/P Pulse O2 O2 Flow FiO2 Ox Delivery Rate 02/10 1454 132 130/70 02/10 0820 97.8 80 16 136/78 97 Room Air 02/09 2200 98.4 98 16 128/82 98 Room Air 02/09 1812 98.7 93 20 136/82 96 Room Air Intake & Output 02/10 1600 02/10 0800 02/10 0000 02/09 1600 02/09 0800 02/09 0000 Intake Total 1000 0 800 850 240 500 Output Total Balance 1000 0 800 850 240 500 Intake, IV 0 0 Intake, Oral 1000 0 800 850 240 500 Number 0 0 1 Bowel Movements Physical Exam: Pale, young adult male in no acute distress. Vital signs: See above. HEENT: Normocephalic, atraumatic, EOMI, slightly dry mucous membranes. Neck: No JVD, no bruits. Lungs: Clear to auscultation bilaterally. Heart: S1, S2 with no murmur, gallop, or rub appreciated. PMI fifth ICS at MCL. Abdomen: Soft, positive bowel sounds, mildly tender to palpation. Extremities: No edema. Peripheral pulses: Symmetrical and intact. Labs/Shawn Results: Laboratory Tests 02/10 02/09 02/09 0720 2250 1736 Chemistry Sodium (137 - 145 mmol/L) 138 Potassium (3.5 - 5.1 mmol/L) 5.1 Chloride (98 - 107 mmol/L) 102 Carbon Dioxide (22 - 30 mmol/L) 29 Anion Gap (5 - 16) 6 BUN (9 - 20 mg/dL) 10 Creatinine (0.7 - 1.2 mg/dL) 0.8 Estimated GFR (>60 ml/min) > 60 BUN/Creatinine Ratio (7 - 25 %) 12.5 Magnesium (1.6 - 2.3 mg/dL) 2.6 H Troponin I (<0.11 ng/ml) < 0.01 < 0.01 < 0.01 TSH &T3 &Free T4 Intrp (0.27 - 4.20 uIU/mL) 0.909 Hematology CBC w Diff MAN DIFF ORDERED WBC (4.8 - 10.8 /CUMM) 22.2 H RBC (4.70 - 6.10 /CUMM) 4.02 L Hgb (14.0 - 18.0 G/DL) 9.4 L Hct (42 - 52 %) 30.6 L MCV (80.0 - 94.0 FL) 76.0 L MCH (27.0 - 31.0 PG) 23.2 L RDW (11.5 - 14.5 %) 22.1 H Plt Count (130 - 400 /CUMM) 850 H MPV (7.4 - 10.4 FL) 6.1 L Gran % (42.2 - 75.2 %) 88.1 H Lymphocytes % (20.5 - 51.1 %) 8.1 L Monocytes % (1.7 - 9.3 %) 3.6 Eosinophils % (0 - 5 %) 0.1 Basophils % (0.0 - 2.0 %) 0.1 Absolute Granulocytes (1.4 - 6.5 /CUMM) 19.6 H Absolute Lymphocytes (1.2 - 3.4 /CUMM) 1.8 Absolute Monocytes (0.10 - 0.60 /CUMM) 0.8 H Absolute Eosinophils (0.0 - 0.7 /CUMM) 0 Absolute Basophils (0.0 - 0.2 /CUMM) 0 Platelet Estimate (ADEQUATE) INCREASED Polychromasia 1+ Hypochromic-Microcytic 1+ Anisocytosis 2+ Microcytic Cells 1+ PUBS MCHC (33.0 - 37.0 G/DL) 30.6 L 02/09 645 Hematology CBC w Diff NO MAN DIFF REQ WBC (4.8 - 10.8 /CUMM) 10.7 RBC (4.70 - 6.10 /CUMM) 3.80 L Hgb (14.0 - 18.0 G/DL) 8.7 L Hct (42 - 52 %) 28.2 L MCV (80.0 - 94.0 FL) 74.1 L MCH (27.0 - 31.0 PG) 22.8 L RDW (11.5 - 14.5 %) 21.0 H Plt Count (130 - 400 /CUMM) 711 H MPV (7.4 - 10.4 FL) 5.8 L Gran % (42.2 - 75.2 %) 90.5 H Lymphocytes % (20.5 - 51.1 %) 8.1 L Monocytes % (1.7 - 9.3 %) 1.2 L Eosinophils % (0 - 5 %) 0.1 Basophils % (0.0 - 2.0 %) 0.1 Absolute Granulocytes (1.4 - 6.5 /CUMM) 9.7 H Absolute Lymphocytes (1.2 - 3.4 /CUMM) 0.9 L Absolute Monocytes (0.10 - 0.60 /CUMM) 0.1 L Absolute Eosinophils (0.0 - 0.7 /CUMM) 0 Absolute Basophils (0.0 - 0.2 /CUMM) 0 PUBS MCHC (33.0 - 37.0 G/DL) 30.8 L Diagnostic Data EKG Results (02/10/2017) sinus rhythm and early repolarization pattern. Slightly faster rate when compared to tracing performed earlier on 02/10/2017. Other Results CT abdomen/pelvis (02/09/2017): 1. Circumferential wall thickening of the ascending colon with minimal adjacent fat stranding, likely representing colitis. Infectious or inflammatory etiology could be considered. Ischemic etiology is thought less likely. Unchanged prominent mesenteric lymph nodes, likely reactive. 2. No large or small bowel obstruction. Normal appendix. 3. New subpleural densities within the right middle and lower lobes which are partially imaged and could represent atelectasis or early infiltrates. Follow up chest imaging could be considered if clinically indicated. Assessment/Plan Assessment/Plan Mr. Gael Christie is a young adult male with a long-standing history of former tobacco use, former heavy Etoh use, and a strong family history for CAD (father with first [place] in his 40s) who presented to the ED with a complaint of weakness, palpitations ("heart racing"), dyspnea on exertion, lightheadedness, dizziness, and near syncope with BRBPR, secondary to colitis with an initial ECG that revealed sinus tachycardia and nonspecific minor upsloping ST segment depression. Gastroenterology suspects the presence of ulcerative colitis, but biopsy specimen results are pending. From a cardiac standpoint, his electrocardiographic changes are not worrisome. Nonspecific ST changes can occur as a result of the sinus tachycardia he experienced, that was likely on the basis of his anemia. It is reassuring that his follow-up electrocardiogram as "normalized". It would not be unreasonable having him undergo an echocardiogram to assess his left ventricular function, wall thickness, PA pressure etc. Would also obtain baseline glycosylated hemoglobin A1c, given his family history. Note normal TSH. Follow-up H/H, WBCs count, platelets. Once present situation stabilizes he should be followed up closely for primary prevention of coronary artery disease, given his very strong family history. Continue with mechanical DVT prophylaxis. Further recommendations will follow, Thank you. Consult Acknowledgment - Thank you for your consult request.
[2017-02-10 23:01] VITALS: BP 116/76
--- NOTE | 2017-02-11 05:52 | PN- Housestaff ---
ANTHONY WALDROP 02/11/17 0551: Subjective Follow-up For: - anemia Complaints: no complaints Tele-Events Since Last Visit: Normal sinus rhythm, heart rate 64-88, no overnight events were noted. Subjective: The patient is comfortable this morning. Did not have any abdominal pain, diarrhea. 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 He remained afebrile overnight. And vitals were stable. Review of Systems Constitutional: Reports: see HPI. Objective Last 24 Hrs of Vital Signs/I&O Vital Signs Date Time Temp Pulse Resp B/P Pulse O2 O2 Flow FiO2 Ox Delivery Rate 02/10 2301 97.5 76 18 116/76 98 Room Air 02/10 1628 98.0 85 20 116/68 97 Room Air 02/10 1454 132 130/70 02/10 0820 97.8 80 16 136/78 97 Room Air Intake & Output 02/11 0800 02/11 0000 02/10 1600 Intake Total 560 1000 Output Total Balance 560 1000 Intake, Oral 560 1000 Number 0 Bowel Movements Physical Exam General Appearance: No Acute Distress Other Physical Findings: General Exam: AAOx3, No acute distress, Skin: No rashes, no breakdown HEENT: PERRLA, EOMI Neck: Supple, No JVD No cervical lymphadenopathy CVS: Reg Rate, Normal S1,S2, No MGR Resp: Normal air entry, no ronchi/rales Abdomen: Soft, No tenderness, Normal Bowel Sounds Neuro: Normal Speech, Strength 5/5 b/l x 4 extremities, Sensation intact, CN III -XII NL, Reflexes 2+ Extremities: No cyanosis, pedal edema Current Medications: Current Medications Sig/Atul Start time Last Medication Dose Route Stop Time Status Admin Acetaminophen 650 MG Q6P PRN 02/06 1800 AC PO Ferrous Sulfate 325 MG BID 02/08 1000 AC 02/10 PO 2109 Loperamide HCl 2 MG Q3P PRN 02/07 0900 AC PO Melatonin 3 MG AT BEDTIME 02/08 2200 AC 02/10 PO 2109 Mesalamine 800 MG TID 02/07 1600 AC 02/10 PO 2108 Methylprednisolone 40 MG Q12 02/08 220 DC 02/10 IV 0832 Morphine Sulfate 2 MG Q8P PRN 02/06 1800 AC 02/10 IV 211 Patient Medication 1 ED .STK-MED ONE 02/10 1352 [facility] ED 02/10 1353 Prednisone 30 MG BID 02/10 2200 AC 02/10 PO 0 Last 24 Hrs of Lab/Shawn Results Last 24 Hrs of Labs/Mics: Laboratory Tests 02/10/17 0720: Anion Gap 6, Estimated GFR > 60, BUN/Creatinine Ratio 12.5, Hemoglobin A1c Pending, Magnesium 2.6 H, Troponin I < 0.01, TSH &T3 &Free T4 Intrp 0.909, CBC w Diff MAN DIFF ORDERED, RBC 4.02 L, MCV 76.0 L, MCH 23.2 L, RDW 22.1 H, MPV 6.1 L, Gran % 88.1 H, Lymphocytes % 8.1 L, Monocytes % 3.6, Eosinophils % 0.1 , Basophils % 0.1, Absolute Granulocytes 19.6 H, Absolute Lymphocytes 1.8, Absolute Monocytes 0.8 H, Absolute Eosinophils 0, Absolute Basophils 0, Platelet Estimate INCREASED, Polychromasia 1+, Hypochromic-Microcytic 1+, Anisocytosis 2+, Microcytic Cells 1+, PUBS MCHC 30.6 L Assessment/Plan Assessment: Mr Christie is a 31-year-old man who is being evaluated for chief concern of bleeding per rectum, diarrhea, weight loss 5 months. Has been evaluated by the GI team in the past, but has lost to follow-up. Recent radiological findings were suggestive of circumferential colonic thickening, after which he underwent colonoscopy which was suggestive of ulcerative colitis. Biopsies taken, pathology pending. It At the time of admission, WBC 13.7, hemoglobin 6.1 (12.5 baseline), MCV 68.3, platelets 1181 (likely iron deficiency anemia), normal electrolytes sodium 140, potassium 4.8, magnesium 1.9, albumin 3.0, T bilirubin 0.3, alkaline phosphatase 129. AST 12, ALT 19. Iron 19, TIBC 338, ferritin 6.6, CRP 6.5. Radiological findings-related CT abdomen and pelvis-circumferential wall thickening of ascending colon with minimal practicing fat stranding likely representing colitis. Admission diagnosis: #1 anemia #2 ulcerative colitis #3 tachycardia Below is the problem list and plan: #1 anemia-microcytic, MCV, iron, ferritin low. Likely chronic blood loss. 2 PRBCs have been transfused so far. Continue iron sulfate. No NSAIDs. Continue to monitor closely. #2 ulcerative colitis- ulcerative colitis flare. Continue mesalamine 800 mg by mouth 3 times a day, continue to by mouth prednisone 30 mg twice a day. Await biopsy samples from recent colonoscopy. Await fecal calprotectin. Dr. Mccartney in advising. The patient likely to be started on 6-MP or Humira. Ordered QuantiFERON for assisting tuberculosis. Check HIV, TPMP passing as an outpatient. Stool cryptosporidium negative. Cryptococcus antigen was sent by error. Repeat Cryptococcus antigen was negative (discussed with Jose Prieto MD). #3 tachycardia-sinus tachycardia. Likely from anemia. Nonspecific ST changes were seen. Echocardiogram done. Since the patient has a family history of [place], need to check for regular risk factors including diabetes, lipid panel etc. #4-diet low residue diet. Mild malnutrition, nutrition consult. Problem List: 1. Malnutrition 2. Colitis 3. Bloody diarrhea 4. Symptomatic anemia 5. Abdominal pain Pain Ratin Pain Location: Abdomen Pain Goal: Pain 4 or less Pain Plan: Tylenol when necessary Tomorrow's Labs & Rationales: No labs necessary, patient to be discharged. SJ FLOYD MD 02/11/17 1205: Attending MD Review Statement Attending Statement Attending MD Statement: examined this patient, discuss w/resident/PA/CLINICAL TRAINING SPECIALIST, agreed w/resident/PA/CLINICAL TRAINING SPECIALIST, reviewed EMR data (avail) Attending Assessment/Plan: 31M no PMH admitted with symptomatic anemia with Hgb 6.1 and fatigue, dysnea on exertion, and palpitations on exertion. Transfused with stable Hgb at this point. Etiology is likely ulcerative colitis. Patient feels well and denies pain. 1 BM overnight, more formed than in past, with melena per patient. Tachycardia has improved. 1. Symptomatic anemia 2. Sinus tachycardia 3. Ulcerative colitis 4. Acute EKG changes Plan - Stable for discharge home - Outpatient GI and cardiology referrals - Continue Prednisone and Mesalamine - Outpatient echocardiogram - TSH normal
[2017-02-11 08:42] LABS: ABSOLUTE BASOPHIL COUNT 0 /CUMM (0.0-0.2); ABSOLUTE EOSINOPHIL COUNT 0 /CUMM (0.0-0.7); ABSOLUTE GRANULOCYTE CT 24.9 /CUMM (1.4-6.5); ABSOLUTE LYMPH COUNT 2.2 /CUMM (1.2-3.4); ABSOLUTE MONOCYTE COUNT 0.9 /CUMM (0.10-0.60); BASOPHIL % 0 % (0.0-2.0); EOSINOPHIL % 0 % (0-5); HEMATOCRIT 28.5 % (42-52); MEAN CORPUSCULAR HGB 23.5 PG (27.0-31.0); MEAN CORPUSCULAR HGB CONC 30.7 G/DL (33.0-37.0); MEAN CORPUSCULAR VOLUME 76.5 FL (80.0-94.0); RBC DISTRIBUTION WIDTH 23.1 % (11.5-14.5); RED BLOOD CELL CT 3.72 /CUMM (4.70-6.10)
--- NOTE | 2017-02-11 08:45 | PN- Gastroenterology ---
Assessment/Plan Assessment/Recommendations: (*Please refer to covering GI consultation of 02/06/2017, per Dr. Turcios. The patient was seen by myself initially on 02/07/17, in the presence of his girlfriend, Laura, as per patient request). 31-year-old male, with intermittent bloody diarrhea since 2015. The patient lost 40 pounds over the past 4 months. He denied any rashes or arthralgias, except for some mild low back pain. There is a questionable family history of "colitis" in the patient's aunt. The patient rarely takes Ibuprofen. He denied any recent antibiotics, travel, or food ingestion, except for rare sushi. Upon further questioning, he may have had bloody diarrhea in his early 20s. Denied any abdominal pain. The diarrhea was every 1-2 hours and secretory in nature, with nocturnal stools. He denied any upper GI symptoms, hematemesis, or melena. The patient was seen for the above in the [facility] *10/18/2016, at which point, CT abdomen and pelvis with IV contrast revealed diffuse mild bowel wall thickening of the colon , from the rectum through the hepatic flexure, with sparing of the right colon and cecum. There was minimal pericolonic stranding most notable at the mid descending colon. Reticula. The appendix was normal, as was the small bowel. Unfortunately, the patient did not follow up with any code number stamper since then, despite being instructesd to do so by the ER, due to "lack of insurance". There is no family history of colon cancer. The patient was admitted to [facility] 02/06/2017 with the above painless bloody diarrhea, microcytic anemia, and weight loss. He was seen in covering GI consultation by Dr. Turcios that day, and a CAT AP scan was ordered. He had thrombocytosis, which most likely is reactive in nature from probable iron deficiency. He received a gallon of GoLYTELY, in anticipation of colonoscopy later today. *The patient previously drank alcohol heavily, stopping 2015. He stopped cigarette smoking a little over 2 weeks prior to admission. He denied any illicit drug use, although remote urine toxicologies were positive for cannabis. *For some reason, no stool workup has been ordered for infectious pathogens, C. difficile, etc, nor any ESR. *The patient received 2u PRBC overnight on 02/06/17. *Upon presentation to the [facility] 02/06/2017, he was normotensive, tachycardic, afebrile (Tm 99.4), with normal O2 sat. *Please note, previous CBC [employer] 10/18/16: WBC 12.5, H/H 12.6/39.2, nl MCV, PLT 501, BUN/Cr 7/0.9, GFR > 60, Na 133, K 3.3, nl LFTs xc alb 3.4, glob 3.0. 02/06/17: Admission labs- WBC 13.7 (72% gran/10 gran Ab), *H/H 6.1/20.7, MCV 68.3, RDW 18, *PLT 1181, PT 12.6, INR 1.20, PTT 27, admission CMP significant for glucose 145, BUN/Cr 11/0.8, GFR > 60, normal electrolytes with sodium 140, potassium 4.8, bicarbonate 22, AG 14, magnesium 1.9, calcium 8.8, albumin 3.0, globulin 3.8, TBil 0.3, alk phos 129, AST 12, ALT 19, troponin < .01, Iron 19, TIBC 338, *iron saturation 5.6%, *ferritin 6.6, B12 586, folate 9.4, * elevated CRP 6.5. 02/07/17: WBC 16.3, H/H 9.0/28.8 (*post 2u PRBC), PLT 788 02/06/17: EKG- ST @ 105, normal axis, normal interval. 02/06/17: CT ABD & PELVIS W ORAL & IV CONTRAST- 1. Circumferential wall thickening of the ascending colon with minimal adjacent fat stranding, likely representing colitis. Infectious or inflammatory etiology could be considered. Ischemic etiology is thought less likely. Unchanged prominent mesenteric lymph nodes, likely reactive. 2. No large or small bowel obstruction. No megacolon. Normal appendix. 3. New subpleural densities within the right middle and lower lobes which are partially imaged and could represent atelectasis or early infiltrates. Follow up chest imaging could be considered if clinically indicated. *As of 02/07/2017, the patient took 1 gallon of GoLYTELY. He was transfused 2 units PRBC overnight. He had diarrhea as expected from the prep. He denied any worsening of his rectal bleeding. He had chronic low back pain, but denied any additional arthralgias or rashes. He denied any chest pain. He denied any shortness of breath. His dyspnea on exertion is better after transfusion. He denied any abdominal pain. He was hemodynamically stable and afebrile. *With at least a few months of bloody diarrhea, 40 lb weight loss, low albumin, elevated CRP, colitis on CT, etc., Most likely, the patient has IBD, probably of the UC variant > Crohn's, by the distribution. Infectious etiology, C. difficile, less likely. He was using small amounts of Ibuprofen, doubt NSAID colitis. Sincerely doubt ischemia. *Please note, the patient initially stopped cigarette smoking a couple of weeks [employer], which is fairly classic for precipitating a flare of UC. He has never had a colonoscopy. There apparently is a family history of colitis in 1 of his aunts. His thrombocytosis is most likely from iron deficiency. 02/07/17: Colonoscopy to TI w/biopsies (& intraoperative stool w/u)- Impression: 1. Probable ulcerative colitis with pancolitis & and most likely, innumerable pseudopolyps. Biopsies of flat and raised areas obtained: (Specimen A- TI x 2, Specimen B- flat cecum x 2, Specimen C- raised cecum x 2, Specimen D- flat right colon 2, Specimen E- raised right colon 2, Specimen F- flat transverse colon 2, Specimen G- raised transverse colon 2, Specimen H- flat left colon x 2, Specimen I- raised left colon x 2, Specimen J- flat sigmoid 2, Specimen K- raised sigmoid 2, Specimen L- flat rectum 2, Specimen M- raised rectum x 2; probable ulcerative colitis, probable pseudopolyps, *rule out CMV, rule out dysplasia, rule out Ca). 2. Intraoperative stool workup: (*Intraoperative stool workup was obtained for stool culture, C. difficile, Shiga toxin, Giardia Ag, Crypto Ag, Vibrio, Yersinia, and fecal calprotectin). 02/07/17: *ESR 55; *HIV- negative *As of 02/08/2017, the patient was slowly improving. He still had diarrhea as expected, as steroids have not yet been started, awaiting stool workup for infectious pathogens. Mesalamine 800 mg TID was prescribed 02/07/17, along with Imodium. The diarrhea is slowing down a bit. There was scant blood per rectum. The patient noted some mild LLQ cramps. He denied any fevers or chills. He tolerated clears and was advanced to a low residue diet. The colonoscopic findings of 02/07/17 were suspicious for UC- pathology pending. 02/07/17: *intraoperative stool culture, C. difficile, Shiga toxin, Giardia Ag, Crypto Ag, Vibrio, & Yersinia- all negative. 02/07/17: *fecal calprotectin- pending. *As of 02/09/17, the patient's diarrhea is much improved, down to once a day. He has not required Imodium. His abdominal cramps are improved as well. There is no longer any rectal bleeding. He is tolerating a low-residue diet. He denied any nausea or vomiting. IV SoluMedrol 40 mg Q12h was rxd on 02/08/17, along with FeSO4 325 mg po BID. The patient remains on Mesalamine 800 mg po TID. *The patient was transferred to telemetry on 02/09/2017, as he developed sinus tachycardia with ambulation, most likely from deconditioning. 02/09/2017: EKG- ST @ 106, with ST depression laterally. *Troponin < 0.01. There was no chest pain or shortness of breath, just some mild dyspnea on exertion. He never desaturated. *The patient was seen in follow-up by the Nutrition Department , at which point, nutritional supplements were not advised, just the continuation of low-residue diet. *Although a stool for Cryptosporidium Ag was requested (& was negative), the medical house staff sent a 02/07/17: Cryptococcal Ag, which was positive, and is being worked up by ID. *This has potential implications, assuming the patient will eventually go on outpatient immunosuppressants, such as 6-MP, or biologic agents, such as Humira. I spoke with Dr. Prieto, of ID, on 02/09/17, who had advised the medical house staff to send repeat titers. 02/07/17: *HIV- negative. 02/07/17: *Cryptococcal Ag- negative (sent out to [facility]) *As of 02/10/17, the patient's colitis symptoms were much improved. He had a semi-formed BM this a.m. His abdominal cramps were much better and he no longer had diarrhea. There was no rectal bleeding. The patient noted dark stools, but is on FeSO4 325 mg po BID. He denied any fevers or chills. He tolerated a low residue diet, and was ambulating, without any CP or SOB. He had intermittent sinus tachycardia. 02/07/17: Cryptococcal sendout at [facility]- negative, as above (discussed with Dr. Prieto). *The patient was seen by Dr. Espinoza of cardiology 02/10/17, & his sinus tach with nonspecific minor upsloping ST depression was not felt to be worrisome, although he did advise an echocardiogram. He had leukocytosis attributed to steroids.*IV SoluMedrol 40 mg BID was just switched to Prednisone 30 mg po BID. *As of 02/11/17, the patient is hemodynamically stable & afebrile. He is much improved from a GI perspective. he has minimal LLQ cramps. Ther is no BRBPR, nor diarrhea. He is tolerating a low residue diet. He has no cardiopulmonary complaints. He has not required any additional transfusions (2u PRBC total on ). *SUGGEST: Continue low residue diet as tolerated. *Await 02/07/17: fecal calprotectin. Imodium as needed for now. *Continue Mesalamine 800 mg po TID. *Await 02/07/17: biopsies of TI, colon & rectum (flat & raised areas). *I spoke to Dr. Siddiqi of [facility] postop, to send biopsies for CMV stains. *Continue Prednisone 30 mg po BID (not to be tapered until seen in outpatient GI follow-up). *Follow- up with Nutrition (no supplements for now). DVT prophylaxis. Mobilize patient as tolerated. The risks and benefits of steroid therapy (i.e.- HTN/DM/osteoporosis /AVN/glaucoma/impaired wound healing/myopathy/Fam's/fluid retention/ psychosis, etc.) were previously discussed with the patient in great detail, and he wished to proceed. Accu-Cheks as per medical team. For probable outpatient biologics (i.e.- Humira), and/or 6-MP, after reviewing the pathology. (02/07/17: Cryptococcal Ag- negative at [facility]). *Advise continuing care consult, as patient currently does not have insurance, and the biologic agents are extremely expensive. Regarding the numerous raised areas, assuming the biopsies are benign, consideration for repeat colonoscopy with chromoendoscopy to also assess for mucosal healing x 1 year (i.e.- 01/2018). Definitive therapy will be started after obtaining pathology results. Transfuse as needed, keeping Hgb > 7. Continue iron repletion, currently on FeSO4 325 mg po BID. *No NSAIDS. Consideration for checking Hep Bs Ag, Hep C Ab, Hep Bs Ab, Hep B core Ab, Hep A Ab, QuantiFERON TB testing & TPMT genotype/phenotype, in case biologic agents and/or 6 MP are eventually needed. Compliance with outpatient GI follow- up was stressed to the patient. The above findings and recommendations were again discussed with the medical house staff. *The patient is okay from a GI perspective for D/C on 02/11/17. Outpatient GI followup within 2 weeks. The patient was given my office number. Problem List: 1. Bloody diarrhea 2. Colitis 3. Symptomatic anemia 4. Weight loss 5. Malnutrition 6. Abnormal CT of the abdomen 7. Family history of colitis Subjective Subjective: *As of 02/11/17, the patient is hemodynamically stable & afebrile. He is much improved from a GI perspective. he has minimal LLQ cramps. Ther is no BRBPR, nor diarrhea. He is tolerating a low residue diet. He has no cardiopulmonary complaints. Review of Systems: Full 14 point review of systems otherwise noncontributory, and as above. Constitutional: Reports: malaise & weakness- improving, unexplained weight loss (40 lb). Denies: chills, fever. EENTM: Denies: blurred vision, visual changes, ear pain, hearing changes, epistaxis, throat pain. Cardiovascular: Reports: dyspnea on exertion- better after transfusions, tachycardia post ambulation- resolved. Denies: chest pain, orthopena, peripheral edema, syncope. Respiratory: Reports: short of breath- better after transfusion. Denies: cough, hemoptysis, sputum production, stridor, wheezing. GI: Reports: see HPI, diarrhea & BRBPR- resolved, mild LLQ cramps- better Denies: constipation, nausea, vomiting. Genitourinary: Denies: discharge, dysuria, frequency, hematuria. Musculoskeletal: Reports; low back pain (chronic). Denies: joint pain, joint swelling. Skin: Denies: erythema, rash. Objective Vital Signs and I&Os Vital Signs Date Time Temp Pulse Resp B/P Pulse O2 O2 Flow FiO2 Ox Delivery Rate 02/10 2301 97.5 76 18 116/76 98 Room Air 02/10 1628 98.0 85 20 116/68 97 Room Air 02/10 1454 132 130/70 Intake & Output 02/11 1600 02/11 0400 02/10 1600 02/10 0400 02/09 1600 02/09 0400 Intake Total 335 364 3584 800 1090 500 Output Total Balance 913 539 8835 800 1090 500 Intake, IV 10 0 0 Intake, Oral 043 251 4281 800 1090 500 Number 0 0 0 1 Bowel Movements Physical Exam: Well-developed, slightly malnourished, thin pale male, in no apparent distress. Sclera anicteric. Conjunctiva less pale (after transfusion). Oropharynx clear. No oral thrush. No aphthous ulcers. There is no adenopathy, thyromegaly, or JVD. Neck: supple, without meningeal signs. No peripheral stigmata of inflammatory bowel disease or chronic liver disease on exam. No spiders on the anterior chest wall. No gynecomastia. No CVA tenderness. Lungs: clear to A&P. Heart exam: regular rate rhythm S1 and S2, without any murmur. Abdominal exam: normal bowel sounds, soft belly, nontender, without guarding or rebound. No mass. Clinically, without megacolon. No organomegaly. No fluid shift. No pulsatile mass. Digital rectal exam on admission reportedly revealed a few flecks of blood (not repeated at present). Extremities: without C, C, or E. No palpable cords. No palmar erythema. No Dupuytren's contractures. Tattoo upper back. Distal pulses 2+ bilaterally. DTRs 2+ bilaterally. Alert and oriented x 3. No tremor. No asterixis. No rash. No acute arthropathy. Current Medications: Current Medications Sig/Atul Start time Last Medication Dose Route Stop Time Status Admin Acetaminophen 650 MG Q6P PRN 03/26 1800 AC PO Ferrous Sulfate 325 MG BID 02/08 1000 AC 02/10 PO 2109 Loperamide HCl 2 MG Q3P PRN 02/07 0900 AC PO Melatonin 3 MG AT BEDTIME 02/08 2200 AC 02/10 PO 2109 Mesalamine 800 MG TID 02/07 1600 AC 02/10 PO 2108 Methylprednisolone 40 MG Q12 02/08 2200 DC 02/10 IV 0832 Morphine Sulfate 2 MG Q8P PRN 02/06 1800 AC 02/10 IV 2118 Patient Medication 1 ED .STK-MED ONE 02/10 1352 [place] [facility] 02/10 1353 Prednisone 30 MG BID 02/10 2200 AC 02/10 PO 2109 Results Pertinent Lab Results: Laboratory Tests 02/11 02/10 02/09 0630 0720 2250 Chemistry Sodium (137 - 145 mmol/L) 136 L 138 Potassium (3.5 - 5.1 mmol/L) 5.0 5.1 Chloride (98 - 107 mmol/L) 102 102 Carbon Dioxide (22 - 30 mmol/L) 24 29 Anion Gap (5 - 16) 9 6 BUN (9 - 20 mg/dL) 16 10 Creatinine (0.7 - 1.2 mg/dL) 0.7 0.8 Estimated GFR (>60 ml/min) > 60 > 60 BUN/Creatinine Ratio (7 - 25 %) 22.9 12.5 Hemoglobin A1c (4.2 - 5.8 %) Pending Magnesium (1.6 - 2.3 mg/dL) 2.6 H Troponin I (<0.11 ng/ml) < 0.01 < 0.01 TSH &T3 &Free T4 Intrp (0.27 - 4.20 uIU/mL) 0.909 Hematology CBC w Diff Pending MAN DIFF ORDERED WBC (4.8 - 10.8 /CUMM) Pending 22.2 H RBC (4.70 - 6.10 /CUMM) Pending 4.02 L Hgb (14.0 - 18.0 G/DL) Pending 9.4 L Hct (42 - 52 %) Pending 30.6 L MCV (80.0 - 94.0 FL) Pending 76.0 L MCH (27.0 - 31.0 PG) Pending 23.2 L RDW (11.5 - 14.5 %) Pending 22.1 H Plt Count (130 - 400 /CUMM) Pending 850 H MPV (7.4 - 10.4 FL) Pending 6.1 L Gran % (42.2 - 75.2 %) Pending 88.1 H Lymphocytes % (20.5 - 51.1 %) Pending 8.1 L Monocytes % (1.7 - 9.3 %) Pending 3.6 Eosinophils % (0 - 5 %) Pending 0.1 Basophils % (0.0 - 2.0 %) Pending 0.1 Absolute Granulocytes (1.4 - 6.5 /CUMM) Pending 19.6 H Absolute Lymphocytes (1.2 - 3.4 /CUMM) Pending 1.8 Absolute Monocytes (0.10 - 0.60 /CUMM) Pending 0.8 H Absolute Eosinophils (0.0 - 0.7 /CUMM) Pending 0 Absolute Basophils (0.0 - 0.2 /CUMM) Pending 0 Platelet Estimate (ADEQUATE) INCREASED Polychromasia 1+ Hypochromic-Microcytic 1+ Anisocytosis 2+ Microcytic Cells 1+ PUBS MCHC (33.0 - 37.0 G/DL) Pending 30.6 L 02/09 02/09 9116 0674 Chemistry Troponin I (<0.11 ng/ml) < 0.01 Hematology CBC w Diff NO MAN DIFF REQ WBC (4.8 - 10.8 /CUMM) 10.7 RBC (4.70 - 6.10 /CUMM) 3.80 L Hgb (14.0 - 18.0 G/DL) 8.7 L Hct (42 - 52 %) 28.2 L MCV (80.0 - 94.0 FL) 74.1 L MCH (27.0 - 31.0 PG) 22.8 L RDW (11.5 - 14.5 %) 21.0 H Plt Count (130 - 400 /CUMM) 711 H MPV (7.4 - 10.4 FL) 5.8 L Gran % (42.2 - 75.2 %) 90.5 H Lymphocytes % (20.5 - 51.1 %) 8.1 L Monocytes % (1.7 - 9.3 %) 1.2 L Eosinophils % (0 - 5 %) 0.1 Basophils % (0.0 - 2.0 %) 0.1 Absolute Granulocytes (1.4 - 6.5 /CUMM) 9.7 H Absolute Lymphocytes (1.2 - 3.4 /CUMM) 0.9 L Absolute Monocytes (0.10 - 0.60 /CUMM) 0.1 L Absolute Eosinophils (0.0 - 0.7 /CUMM) 0 Absolute Basophils (0.0 - 0.2 /CUMM) 0 PUBS MCHC (33.0 - 37.0 G/DL) 30.8 L Imaging/Other Studies: 02/06/17: EKG- ST @ 105, normal axis, normal interval. 02/06/17: CT ABD & PELVIS W ORAL & IV CONTRAST- 1. Circumferential wall thickening of the ascending colon with minimal adjacent fat stranding, likely representing colitis. Infectious or inflammatory etiology could be considered. Ischemic etiology is thought less likely. Unchanged prominent mesenteric lymph nodes, likely reactive. 2. No large or small bowel obstruction. No megacolon. Normal appendix. 3. New subpleural densities within the right middle and lower lobes which are partially imaged and could represent atelectasis or early infiltrates. Follow up chest imaging could be considered if clinically indicated. 02/07/17: Colonoscopy to TI w/biopsies (& intraoperative stool w/u)- Impression: 1. Probable ulcerative colitis with pancolitis & and most likely, innumerable pseudopolyps. Biopsies of flat and raised areas obtained: (Specimen A- TI x 2, Specimen B- flat cecum x 2, Specimen C- raised cecum x 2, Specimen D- flat right colon 2, Specimen E- raised right colon 2, Specimen F- flat transverse colon 2, Specimen G- raised transverse colon 2, Specimen H- flat left colon x 2, Specimen I- raised left colon x 2, Specimen J- flat sigmoid 2, Specimen K- raised sigmoid 2, Specimen L- flat rectum 2, Specimen M- raised rectum x 2; probable ulcerative colitis, probable pseudopolyps, *rule out CMV, rule out dysplasia, rule out Ca). 2. Intraoperative stool workup: (*Intraoperative stool workup obtained for stool culture, C. difficile, Shiga toxin, Giardia Ag, Crypto Ag, Vibrio, & Yersinia- *all negative; 02/07/17: *fecal calprotectin- pending). 02/09/17: EKG- ST @ 106, with ST depression laterally.
[2017-02-11 08:46] VITALS: BP 110/68
[2017-02-11 09:20] LABS: GRANULOCYTE % 88.9 % (42.2-75.2); PLATELET COUNT 785 /CUMM (130-400)
[2017-02-11] MEDS ORDERED: MESALAMINE800 MG PO ×2 (09:58→10:05)
[2017-02-11] MEDS ORDERED: FERROUS SULFAT325 M2 PO (10:04)
[2017-02-11] MEDS ORDERED: PREDNISONE10 M2 PO (10:04)
[2017-02-11] MEDS ORDERED: LOPERAMIDE2 M2 PO (10:05)
--- NOTE | 2017-02-11 10:13 | Patient Discharge Instructions ---
Discharge Instructions General Discharge Information You were seen/treated for: - anemia - colitis You had these procedures: - Colonoscopy Watch for these problems: - lightheadedness, visual changes - chest pain, shortness of breath - Special Instructions: - Please see your PCP within one week of discharge. Please check your blood work - COMPLETE BLOOD COUNT. - Please seek medical attention, if you have any of the symptoms such as large amount of blood in the stool, lightheadedness, elevated heart rate/palpitations. - Please see your gastroenteroligist within one week of discharge. Diet Recommended Diet: Low Residue Acute Coronary Syndrome Inclusion Criteria At DC or during hospital stay patient has or had the following: ACS DIAGNOSIS No Discharge Core Measures Meds if any: Prescribed or Continued at Discharge Meds if any: NOT Prescribed or Continued at Discharge Congestive Heart Failure Inclusion Criteria At DC or during hospital stay patient has or had the following: CHF DIAGNOSIS No Discharge Core Measures Meds if any: Prescribed or Continued at Discharge Meds if any: NOT Prescribed or Continued at Discharge Cerebrovascular accident Inclusion Criteria At DC or during hospital stay patient has or had the following: CVA/TIA Diagnosis No Discharge Core Measures Meds if any: Prescribed or Continued at Discharge Meds if any: NOT Prescribed or Continued at Discharge Venous thromboembolism Inclusion Criteria VTE Diagnosis No VTE Type NONE VTE Confirmed by (Test) NONE Discharge Core Measures - Per Current guidelines, there needs to be overlap - treatment for the first 5 days of Warfarin therapy. - If discharged on Warfarin prior to 5 days of - overlap therapy, the patient will need to be - assessed for post discharge needs including - *Post discharge parental anticoagulation - *Warfarin and/or parental anticoagulation education - *Follow up date to check INR post discharge At least 5 days overlap therapy as Inpatient No Meds if any: Prescribed or Continued at Discharge Note: Overlap Therapy is Warfarin and Anticoagulant Meds if any: NOT Prescribed or Continued at Discharge
--- NOTE | 2017-02-11 13:36 | ECHOCARDIOGRAM REPORT ---
KATALINA SMALLS Age: 31 : 1985 Gender: M Exam Date: 02/10/2017 16:20 Exam Location: [facility] Ht (in): 70 Wt (lb): 140 BSA: 1.76 BP: 130 / 70 Ordering Physician: ANTHONY WALDROP MD Referring Physician: Cliff Espinoza MD Technologist: Roslyn Corado [facility] Room Number: 185-02 Indications: HEART FAILURE Rhythm: Sinus Technical Quality: Good FINDINGS Left Ventricle Normal size left ventricle. Borderline to mild concentric left ventricular hypertrophy. Normal left ventricular wall motion. Normal left ventricular ejection fraction visually estimated at > 65%. Normal left ventricular diastolic filling pattern for age. Right Ventricle The right ventricle is normal in size and function. Right Atrium The right atrium is normal in size. Left Atrium The left atrium is normal in size. The interatrial septum is intact. Mitral Valve The mitral valve is mildly thickened with normal leaflet excursion. There is no mitral regurgitation. Aortic Valve Structurally normal aortic valve without significant sclerosis. No aortic valve stenosis or regurgitation. Tricuspid Valve The tricuspid valve is normal in structure and function. There is trace tricuspid regurgitation. Pulmonary artery systolic pressure is normal. Pulmonic Valve Structurally normal pulmonic valve. There is trace pulmonic regurgitation. Pericardium No pericardial effusion. Great Vessels Normal size aortic root. Normal size inferior vena cava. CONCLUSIONS Normal size left ventricle. Borderline to mild concentric left ventricular hypertrophy. Normal left ventricular wall motion. Normal left ventricular ejection fraction visually estimated at > 65%. Normal left ventricular diastolic filling pattern for age. The right ventricle is normal in size and function. The atria are normal in size. There is trace tricuspid regurgitation. Pulmonary artery systolic pressure is normal. There is trace pulmonic regurgitation. Cliff Espinoza M.D. (Electronically Signed) Final Date: 11 February 2017 13:35 MEASUREMENTS (Male / Female) Normal Values 2D ECHO LV Diastolic Diameter PLAX 4.3 cm 4.2 - 5.9 / 3.9 - 5.3 cm LV Systolic Diameter PLAX 2.1 cm 2.1 - 4.0 cm LV Fractional Shortening PLAX 51.2 % 25 - 46 % LV Ejection Fraction 2D Teich 82.7 % IVS Diastolic Thickness 1.2 cm LVPW Diastolic Thickness 1.0 cm LV Relative Wall Thickness 0.5 RV Internal Dim ED PLAX 2.4 cm 1.9 - 3.8 cm LVOT Diameter 1.9 cm Aortic Root Diameter 2.7 cm LA Systolic Diameter LX 3.7 cm 3.0 - 4.0 / 2.7 - 3.8 cm LA Volume 31.0 cm 18 - 58 / 22 - 52 cm Ascending Aorta Diameter 2.6 cm DOPPLER AV Peak Velocity 125.0 cm/s AV Peak Gradient 6.3 mmHg AV Mean Velocity 81.2 cm/s AV Mean Gradient 3.0 mmHg AV Velocity Time Integral 21.2 cm LVOT Peak Velocity 125.0 cm/s LVOT Peak Gradient 6.3 mmHg LVOT Mean Velocity 82.9 cm/s LVOT Mean Gradient 3.0 mmHg LVOT Velocity Time Integral 23.2 cm LVOT Stroke Volume 65.8 cm AV Area Cont Eq vti 3.1 cm AV Area Cont Eq pk 2.8 cm MV Peak Velocity 105.0 cm/s MV Peak Gradient 4.4 mmHg MV Mean Velocity 67.6 cm/s MV Mean Gradient 2.0 mmHg Mitral E Point Velocity 73.1 cm/s Mitral A Point Velocity 62.7 cm/s Mitral E to A Ratio 1.2 MV PHT Velocity 107.0 cm/s MV Deceleration Glascock 622.0 cm/s MV Pressure Half Time 51.6 ms MV Area PHT 4.3 cm MV Deceleration Time 254.0 ms TR Peak Velocity 96.5 cm/s TR Peak Gradient 3.7 mmHg Right Atrial Pressure 5.0 mmHg Pulmonary Artery Systolic Pressu 8.7 mmHg Right Ventricular Systolic Press 8.7 mmHg PV Peak Velocity 155.0 cm/s PV Peak Gradient 9.6 mmHg PV Mean Velocity 91.0 cm/s PV Mean Gradient 4.0 mmHg PV Velocity Time Integral 25.8 cm LV E' Lateral Velocity 14.8 cm/s Mitral E to LV E' Lateral Ratio 4.9 LV E' Septal Velocity 8.4 cm/s Mitral E to LV E' Septal Ratio 8.7
--- NOTE | 2017-02-11 17:02 | Discharge Summary ---
Visit Information Visit Dates Admission Date: 02/06/17 Discharge Date: 02/11/17 Hospital Course Course Attending Physician: SJ FLOYD MD Primary Care Physician: PATIENT HAS NO PRIMARY CARE DR Hospital Course: Mr Christie is a 31-year-old man who was evaluated for a chief concern of bleeding per rectum, diarrhea, weight loss 5 months. He was evaluated by the GI team in the past, but has lost to follow-up. Recent radiological findings was suggestive of circumferential colonic thickening; after which he underwent colonoscopy which was suggestive of ulcerative colitis. At the time of admission, WBC 13.7, hemoglobin 6.1 (12.5 baseline), MCV 68.3, platelets 1181 (likely iron deficiency anemia), normal electrolytes sodium 140, potassium 4.8, magnesium 1.9, albumin 3.0, T bilirubin 0.3, alkaline phosphatase 129. AST 12, ALT 19. Iron 19, TIBC 338, ferritin 6.6, CRP 6.5. Radiological findings-related CT abdomen and pelvis-circumferential wall thickening of ascending colon with minimal practicing fat stranding likely representing colitis. Colonoscopy 02/07/17: findings- Probable ulcerative colitis with pancolitis & and most likely, innumerable pseudopolyps. Several raised areas, r/o CMV, dysplasia, carcinoma. Admission diagnosis: #1 anemia #2 ulcerative colitis #3 tachycardia Below is the problem list and plan: #1 anemia-microcytic, MCV, iron, ferritin low. Likely chronic blood loss. He received 2 units of PRBCs with improvement in HCT. Continued on iron sulfate. . #2 ulcerative colitis- Treated this as an ulcerative colitis flare. Started the patient on mesalamine 800 mg by mouth 3 times a day, and iv steroids. Changed to by mouth prednisone at the time of discharge. Colonoscopy was performed, which revealed findings s/o UC. Confirmed by biopsy samples that favored UC. Fecal calprotectin was elevated favoring IBD. The patient likely to be started on 6-MP or Humira. HIV- nonreactive , TPMT was to be done as an outpatient. Stool cryptosporidium negative. Cryptococcus antigen was sent by error. Repeat Cryptococcus antigen was negative (discussed with Jose Prieto MD). IGRA indeterminate. Regarding the numerous raised areas, a repeat colonoscopy with chromoendoscopy to also assess for mucosal healing could be done in one year. #3 tachycardia-sinus tachycardia. Likely from anemia. Nonspecific ST changes were seen. Dr Espinoza was consulted for advice. Echocardiogram revealed Normal left ventricular ejection fraction visually estimated at > 65%. Since the patient has a family history of UT, needed to check for regular risk factors including diabetes, lipid panel etc. as an outpatient. Allergies: Coded Allergies: NO KNOWN ALLERGIES (10/18/16) Significant Procedures: 02/07/17: Colonoscopy to TI w/biopsies (& intraoperative stool w/u) Impression: 1. Probable ulcerative colitis with pancolitis & and most likely, innumerable pseudopolyps. Biopsies of flat and raised areas obtained: (Specimen A- TI x 2, Specimen B- flat cecum x 2, Specimen C- raised cecum x 2, Specimen D- flat right colon 2, Specimen E- raised right colon 2, Specimen F- flat transverse colon 2, Specimen G- raised transverse colon 2, Specimen H- flat left colon x 2, Specimen I- raised left colon x 2, Specimen J- flat sigmoid 2, Specimen K- raised sigmoid 2, Specimen L- flat rectum 2, Specimen M- raised rectum x 2; probable ulcerative colitis, probable pseudopolyps, *rule out CMV, rule out dysplasia, rule out Ca). 2. Intraoperative stool workup: (*Intraoperative stool workup was obtained for stool culture, C. difficile, Shiga toxin, Giardia Ag, Crypto Ag, Vibrio, Yersinia, and fecal calprotectin). Pertinent Lab Results: 02/06/17: CT ABD & PELVIS W ORAL & IV CONTRAST- 1. Circumferential wall thickening of the ascending colon with minimal adjacent fat stranding, likely representing colitis. Infectious or inflammatory etiology could be considered. Ischemic etiology is thought less likely. Unchanged prominent mesenteric lymph nodes, likely reactive. 2. No large or small bowel obstruction. No megacolon. Normal appendix. 3. New subpleural densities within the right middle and lower lobes which are partially imaged and could represent atelectasis or early infiltrates. Follow up chest imaging could be considered if clinically indicated. Disposition Summary Disposition Principal Diagnosis: Ulcerative Colitis Additional Diagnosis: Iron deficinency anemia Discharge Disposition: home or self care Discharge Instructions General Discharge Information Code Status: Full Code Patient's Diet: low residue diet Patient's Activity: as tolerated. Follow-Up Instructions/Appts: #1 please follow up with her primary care doctor within 1 week of discharge. #2 Please follow-up with your pattern drafter-Dr. Rod within 1 week of discharge. #3 Please take your medications as prescribed. Medications at Discharge Discharge Medications: Continue taking these medications: Acetaminophen (Tylenol Extra Strength) 500 MG TABLET 2 Tablet ORAL as needed for PAIN Comments: NOT GIVEN IN HOSPITAL Multivitamin (Multi-Day Vitamins) 1 EACH TABLET 1 Tablet ORAL DAILY Comments: NOT GIVEN IN HOSPITAL Start taking the following new medications: Mesalamine (Mesalamine) 800 MG TABLET. 1 Tablet ORAL THREE TIMES DAILY Qty = 30 Refills = 1 Comments: Last Taken: 02/11/17 Time: 10 AM Ferrous Sulfate (Ferrous Sulfate) 325 MG (65 MG IRON) TABLET.DR 325 Milligram ORAL TWICE DAILY Qty = 30 No Refills Comments: Last Taken: 02/11/17 Time: 10 AM Prednisone (Prednisone) 10 MG TABLET 30 Milligram ORAL TWICE DAILY Qty = 30 No Refills Comments: Last Taken: 02/11/17 Time: 10 AM Loperamide HCl (Loperamide) 2 MG CAPSULE 2 Milligram ORAL EVERY 3 HOURS NEEDED as needed for DIARRHEA Qty = 30 Refills = 1 Comments: NOT GIVEN IN HOSPITAL Copies To: JACINTO CAMPA,CARRIE Attending MD Review Statement Documenting Attending: SJ FLOYD MD
== END 2017-02-11 16:50 | DRG 245 ==
LOC: ENRESERVDT → ENRESERVTM → ERH 14:31 → 1NO 16:46 → ERHI 16:46 → 2NB 16:46 → 1NO 16:46 → ENPENDDIS 16:46 → 2NB 18:50 → 1NO 02-09 18:10
PROVIDERS: Internal Medicine; Internal Medicine Endocrinology, Diabetes & Metabolism; Physician Assistant; Student in an Organized Health Care Education/Training Program; ADMIT Internal Medicine
DX: K51.911 Ulcerative colitis, unspecified with rectal bleeding (principal); E46 Unspecified protein-calorie malnutrition; D62 Acute posthemorrhagic anemia; Z68.20 Body mass index [BMI] 20.0-20.9, adult; R63.4 Abnormal weight loss; Z87.891 Personal history of nicotine dependence
CPT/HCPCS: 1NSP; 86403; 86480; 36415; 74177; 82436; 86920; 87045; 87328; 87329; 87389; 88305; 93005; 93010; 93306; 96360; 96365; 96366; 96375; J2920; J7512; P9016